=== PATIENT | female | born 1945 | race Caucasian/White ===

== ENCOUNTER 2021-10-13 14:26 | Outpatient (CLI) | payer MEDICARE, OTHER, SELFPAY ==
--- NOTE | 2021-10-13 14:42 | MM_ITS ---
WS: [id number] BILATERAL SCREENING 3D TOMOSYNTHESIS DIGITAL MAMMOGRAM WITH CAD HISTORY: SCREENING COMPARISON: 10/06/2018 and 09/20/2017 Bilateral CC and MLO views submitted. Computer aided detection analyzed. Breast composition: The breasts are heterogeneously dense, which may obscure small masses. No suspici ous masses, microcalcifications or architectural distortion. Benign coarse calcifications within each breast. MM/[place] [id number] IMPRESSION: BI-RADS: 2-Benign FOLLOW UP: 1 Year Follow-up
== END 2021-10-13 14:27 | disposition home or self-care (01) ==
LOC: RADSHAW 14:29
PROVIDERS: Family Provider Registered Nurse; PCP Family Medicine; Visit Provider Family Medicine
DX: Z12.31 Encounter for screening mammogram for malignant neoplasm of breast (principal)
CPT/HCPCS: 77063; 77067

== ENCOUNTER → 2022-09-08 13:23 | Outpatient (BNVA) | payer MEDICARE, OTHER, SELFPAY | PROVIDERS: Family Provider Registered Nurse; PCP Family Medicine; Visit Provider Orthopaedic Surgery | DX: M47.816 Spondylosis without myelopathy or radiculopathy, lumbar region (principal); M48.062 Spinal stenosis, lumbar region with neurogenic claudication | CPT/HCPCS: 72110; 99204 ==

== ENCOUNTER 2022-09-28 10:56 | Outpatient (CLI) | payer MEDICARE, OTHER, SELFPAY ==
--- NOTE | 2022-09-28 11:00 | MR_ITS ---
WS: [id number] MRI LUMBAR SPINE NONCONTRAST HISTORY: back pain, LEFT radiculopathy. COMPARISON: Radiograph 09/08/2022 TECHNIQUE: Sagittal and axial multisequence imaging is submitted. Increase in thoracic kyphosis. 50% compression fracture at T9. Focal kyphosis centered at T8-9 with i nvagination of T8 and T9. C5 retrolisthesis by 2 mm. No fractures or marrow edema. Mild degenerative disc space narrowing at L4-5 and L5-S1. Conus terminates normally at L1. L1-L2: Normal. L2-L3: Normal. L3-L4: Mild annular disc bulging. No disc protrusions. Moderate ligamentum flavum and facet arthritis . There is mild central and bilateral subarticular recess stenosis. No significant foraminal stenosis . L4-L5: Moderate annular disc bulging and mild osteophytic ridging. No disc protrusion. Moderate bilat eral foraminal stenosis, LEFT greater than RIGHT. Moderate central and bilateral subarticular recess stenosis. There is mild disc contacting the traversing L5 nerve roots bilaterally. L5-S1: Mild annular disc bulging and osteophytic ridging, greatest to the LEFT. Marked facet hypertro phy. Moderate to severe LEFT foraminal stenosis. There is mild central and RIGHT foraminal stenosis. There is a small disc protrusion extending caudad to the disc level with contact and encroachment upo n the thecal sac and S1 nerve roots, LEFT greater than RIGHT. Paraspinal soft tissues are negative. MR/MR lumbar spine wo con* [id number] IMPRESSION: 1. Moderate to severe LEFT foraminal stenosis at L5-S1. Stenosis due to combin ation of disc, osteophytosis and facet disease. 2. Mild central, RIGHT foraminal stenosis and bilateral subarticular recess st enosis also at L5-S1. Small central disc protrusion extends caudad to the disc level contacting the S1 nerve roots. 3. Mild central, bilateral subarticular recess stenosis at L3-4. 4. Moderate central, subarticular recess and foraminal stenosis at L4-5, LEFT greater than RIGHT. Disc contacts the traversing L5 nerve roots.
== END 2022-09-28 10:57 | disposition home or self-care (01) ==
LOC: RAD 10:59
PROVIDERS: PCP Family Medicine; Visit Provider Orthopaedic Surgery
DX: M48.07 Spinal stenosis, lumbosacral region (principal); M48.061 Spinal stenosis, lumbar region without neurogenic claudication
CPT/HCPCS: 72148

== ENCOUNTER → 2022-10-08 10:56 | Outpatient (BNVA) | payer MEDICARE, OTHER, SELFPAY | PROVIDERS: PCP Family Medicine; Visit Provider Orthopaedic Surgery | DX: M48.062 Spinal stenosis, lumbar region with neurogenic claudication (principal) | CPT/HCPCS: 99214 ==

== ENCOUNTER 2022-10-14 08:28 | Day surgery (SDC) | payer MEDICARE, OTHER, SELFPAY ==
[2022-10-09 11:39] VITALS: BMI 28.9
--- NOTE | 2022-10-09 12:11 | ECG_ITS ---
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
[2022-10-09 12:32] LABS: Basophils # 0.1 10^3/uL (0.0-0.1); Basophils % 0.8 %; Eosinophils # 0.1 10^3/uL (0.0-0.8); Eosinophils % 1.6 %; Hematocrit 39.6 % (37.0-47.0); Hemoglobin 13.3 g/dL (11.5-15.3); Lymphocytes # 1.6 10^3/uL (0.8-4.8); Lymphocytes % 24.3 %; Mean Corpuscular HGB Conc 33.6 g/dL (30.0-36.0); Mean Corpuscular Hemoglobin 32.3 pg (28.0-34.0); Mean Corpuscular Volume 96.1 fl (81-99); Mean Platelet Volume 8.3 fL (7.4-10.4); Monocytes # 0.8 10^3/uL (0.2-0.9); Monocytes % 12.2 %; Neutrophils # 3.91 10^3/uL (1.8-7.7); Neutrophils % 60.6 %; Nucleated Red Blood Cells % 0 %; Platelet Count 273 10^3/cmm (130-400); Red Blood Count 4.12 10^6/uL (4.1-5.3); Red Cell Distribution Width 11.6 % (12.1-15.1); White Blood Count 6.5 10^3/uL (4.0-10.0)
[2022-10-09 12:50] LABS: Alanine Aminotransferase 17 U/L (0-33); Albumin Level 4.2 g/dL (3.5-5.2); Alkaline Phosphatase 87 U/L (35-105); Anion Gap 14.6 (5-19); Aspartate Amino Transferase 24 U/L (0-32); Blood Urea Nitrogen 10 mg/dL (8-23); Calcium 8.9 mg/dL (8.5-10.5); Carbon Dioxide 27 mmol/L (22-29); Chloride 94 mmol/L (98-107); Globulin 2.9 g/dL (1.3-4.6); Glucose 117 mg/dL (65-115); Osmolality Calculated 272 mOsm/kg (285-295); Potassium 4.6 mmol/L (3.5-5.1); Sodium 131 mmol/L (136-145); Total Bilirubin 0.5 mg/dL (0.15-1.2); Total Protein 7.1 g/dL (6.6-8.7)
--- NOTE | 2022-10-09 14:49 | ANES.PREANE2 ---
Pre-Anesthetic Assessment Height/Weight: Height 1.52 m Weight 67.132 kg Operation Date: 10/14/22 10:05 Proposed Procedures p Lumbar Spine Decompression: L4/5 L5/S1 15546,95299 M48.062(Not Applicable) - Peyman Morrison DO Familial anesthetic complications: none Was Beta Soledad taken within 24 hours: Yes Was Clonidine taken within 24 hours: N/A Social Alcohol and Tobacco Exam alert, oriented x 3 and regular rate & rhythm Airway Submandibular: within normal limits Cervical ROM: within normal limits Mallampati: Class II Dentition: full Pulmonary Chronic Obstructive Pulmonary Disease CV/HEM Hypertension Metabolic Morbid Obesity [facility] [place] Lower Back Pain and Osteoarthritis/DJD Neuropsych Anxiety and Depression Anesthetic Plan ASA status: 3 Anesthesia: General Medications/Allergies Home Medications Medication Instructions Recorded Confirmed Last Taken Type alprazolam 0.5 mg tablet (Xanax) 0.5 mg PO DAILY 09/08/22 10/09/22 Unknown History carvedilol 6.25 mg tablet 6.25 mg PO BID 09/08/22 10/09/22 Unknown History hydrocodone 5 mg-acetaminophen 325 1 tab PO Q8H PRN Pain 09/08/22 10/09/22 Unknown History mg tablet losartan 100 mg tablet 100 mg PO DAILY 09/08/22 10/09/22 Unknown History methocarbamol 750 mg tablet 750 mg PO TID 09/08/22 10/09/22 Unknown History montelukast 10 mg tablet 10 mg PO DAILY 09/08/22 10/09/22 Unknown History pregabalin 50 mg capsule (Lyrica) 50 mg PO TID 09/08/22 10/09/22 Unknown History Allergies Allergy/AdvReac Type Severity Reaction Status Date / Time vigabatrin [From Sabril] Allergy Severe ALGY-Anaphy Verified 10/08/22 11:03 laxis latex Allergy ALGY-Hives Verified 10/09/22 11:34 Penicillins Allergy ALGY-Rash Verified 10/08/22 11:03 Sulfa (Sulfonamide Allergy ALGY-Anaphy Verified 10/09/22 11:34 Antibiotics) laxis Data Anesthesia 10/09/22 12:22 10/09/22 12:22 Short CBC 10/09/22 Range/Units 12:22 WBC 6.5 (4.0-10.0) 10^3/uL Hgb 13.3 (11.5-15.3) g/dL Hct 39.6 (37.0-47.0) % MCV 96.1 (81-99) fl Plt Count 273 (130-400) 10^3/cmm Neut % (Auto) 60.6 % Neut # (Auto) 3.91 (1.8-7.7) 10^3/uL BMP 10/09/22 12:22 Sodium 131 L Potassium 4.6 Chloride 94 L Carbon Dioxide 27 BUN 10 Creatinine 0.7 Glucose 117 H Calcium 8.9 Liver Function 10/09/22 Range/Units 12:22 Total Bilirubin 0.5 (0.15-1.2) mg/dL AST 24 (0-32) U/L ALT 17 (0-33) U/L Alkaline Phosphatase 87 (35-105) U/L Albumin 4.2 (3.5-5.2) g/dL Cardiac Studies: No Data to Display
[2022-10-14] VITALS (13 sets, daily range): BP systolic 119–168; BP diastolic 58–107; PULSE 80–89; RESP 12–18; TEMP 36.1–36.9; O2SAT 91–97
--- NOTE | 2022-10-14 09:10 | W.PM.OPSUD ---
Surgery/Procedure H&P Update DATE OF PROCEDURE: October 14, 2022 DATE H&P PERFORMED: 10/08/22 H&P UPDATE INFORMATION: I have reviewed H&P completed within last 30 days, I have examined patient prior to procedure and No changes to prior documentation PREOP DIAGNOSIS: Lumbar stenosis with neurogenic claudication PLANNED PROCEDURE: Operation Date: 10/14/22 10:10 Proposed Procedures p Lumbar Spine Decompression: L4/5 L5/S1 [id number],19473 M48.062(Not Applicable) - Peyman Morrison DO
[2022-10-14] MEDS: sodium chloride 0.9% 1,000 ML 30 ML IV (09:12)
--- NOTE | 2022-10-14 09:26 | P.ANESUD_ITS ---
Pre-Anesthetic Update Pre-Anesthetic Assessment: Date of Surgery/Procedure: 10/14/22 Preop Charla gnosis: Lumbar stenosis with neurogenic claudication Proposed Procedure: Operation Date: 10/14/22 10:10 Proposed Procedures p Lumbar Spine Decompression: L4/5 L5/S1 [id number],50782 M48.062(Not Applicable) - Peyman Morrison, DO Any changes to Pre-Anesthetic Assessment?: No Last Intake: Intake Last Liquid Date 10/14/22 Last Liquid Time 06:30 Last Solid Date 10/13/22 Last Solid Time 20:00 Vitals: Temperature 98.3 F 10/14/22 08:52 Temperature Source Temporal Artery S can 10/14/22 08:52 Pulse Rate 80 10/14/22 08:52 Respiratory Rate 18 10/14/22 08:52 Blood Pressure 168/107 10/14/22 08:52 Blood Pressure Sofía n 127 10/14/22 08:52 Pulse Oximetry 97 10/14/22 08:52 Oxygen Delivery Me thod 10/14/22 08:52 Exam: Pre-Anes Outpt Exam: alert, oriented x 3, clear to auscultation bilaterally and regular rate & rhythm Cardiac Studies: No Data to Display
[2022-10-14] MEDS: clindamycin 900 MG/50 ML PREMIX 100 MG IV (10:12)
[2022-10-14] MEDS: lidocaine-epi 1% 20 mL INJ INJECTION (10:45)
--- NOTE | 2022-10-14 11:34 | XR_ITS ---
WS: [id number] EXAMINATION: XR lumbar spine 1V [id number] L-SPINE : 1 views REASON FOR EXAM: C-arm fluoroscopy COMPARISON: None available. ORDER DATE: 10/14/2022 11:34 AM FINDINGS: Surgical positioned at the L5 level XR/XR lumbar spine 1V [id number] IMPRESSION: As above total fluoroscopy time 16.9 seconds
--- NOTE | 2022-10-14 11:39 | PC.NURSE ---
Pt arrived to PACU, awake, denies any pain or nausea. Dressing to lower back C/D/I, able to move all extremities.
--- NOTE | 2022-10-14 11:45 | PM.OP ---
Operative Report Date of procedure: October 14, 2022 Pre-op diagnosis: Preop Diagnosis Lumbar stenosis with neurogenic claudication Post-op diagnosis: same Procedure done: 1. L4/5 laminectomy with partial facetectomies 2. L5/S1 laminectomies with partial factectomies Surgeon: Peyman Morrison Lead Atg Developer: Juan Manuel Mccullough Lead Atg Developer: The certified surgical assistant, Juan Manuel Mccullough, PAC was needed for his expertise under the microscope. He was important and necessary throughout the procedure to complete in a safe and timely manner. He assisted with patient positioning prepping and draping tissue retraction suctioning of the operative field protection of the dural sac and tissue closure Estimated blood loss (mL): 20 Procedure: 1. L4/5 laminectomy with partial facetectomies 2. L5/S1 laminectomies with partial factectomies Patient is brought to the operative suite. After undergoing anesthesia they are placed in the prone position. All areas of impingement are well padded. Patient is then prepped and draped in the normal sterile fashion. A skin incision is made over the L4/5 level. This is confirmed under c-arm guidance. A series of dilators are passed and the tubular retractor is docked on the L4 lamina. A bovie is used to clear the soft tissue off the lamina and the L 4/5 facet joint. A high speed mehul is then used to perform the laminectomy and take down the medial aspect of the L 4/5 facet joint. A kerrison rongeure was then used to take down the remaining lamina and smooth the edged of the laminectomy up to the point where the ligamentum flavum attaches. Attention was then brought to the medial aspect of the facet joint. The remaining medial aspect of the superior and inferior aspect of the facet joint were taken down with the kerrison from the pedicle of L4 to L 5. The facet joint had significant hypertrophy. Attention was then brought to the Ligamentum Flavum. The ligament was taken down from the lamina of L4 to L5 and out medially to the remaining facet joint. The ligament was thick. The dura was then exposed. The dura was in good repair. The L4 nerve was then traced with a curette out the L4/5 foramen and found to be adequately decompressed. The L5 nerve was traced with a curette around the L5 pedicle. The lateral recess was opened with a kerrison helping to further decompress the L5 nerve. The tubular retractor was then tilted to the contralateral side. The bovie was used to take down the soft tissue on the spinous process. The high speed mehul was used to take down the spinous process and then the contralateral lamina of L4. The kerrison rongeur was used to take down the remaining lamina to the point where the ligamentum flavum attached and the ligamentum flavum was taken down from L4 to L5. The kerrison rongeur was then used to reach across and take down the medial aspect of the contralateral L4/5 facet joint.The currete was used to trace the contralateral L4 nerve out the L4/5 foramen to make sure it was decompressed adequatesly and the L5 was traced around the L5 pedicle. The lateral recess was opened further with the kerrison to ensure the L5 is adequately decompressed. Wound is then irrigated copiously with saline and surgiflo is used to stop any bleeding. The tubular retractor is removed and the A skin incision is made over the L5/S1 level. This is confirmed under c-arm guidance. A series of dilators are passed and the tubular retractor is docked on the L5 lamina. A bovie is used to clear the soft tissue off the lamina and the L 5/S1 facet joint. A high speed mehul is then used to perform the laminectomy and take down the medial aspect of the L 5/S1 facet joint. A kerrison rongeure was then used to take down the remaining lamina and smooth the edged of the laminectomy up to the point where the ligamentum flavum attaches. Attention was then brought to the medial aspect of the facet joint. The remaining medial aspect of the superior and inferior aspect of the facet joint were taken down with the kerrison from the pedicle of L5 to S1. The facet joint had significant hypertrophy. Attention was then brought to the Ligamentum Flavum. The ligament was taken down from the lamina of L5 to S1 and out medially to the remaining facet joint. The ligament was thick. The dura was then exposed. The dura was in good repair. The L5 nerve was then traced with a curette out the L5/S1 foramen and found to be adequately decompressed. The S1 nerve was traced with a curette around the S1 pedicle. The lateral recess was opened with a kerrison helping to further decompress the S1 nerve. The tubular retractor was then tilted to the contralateral side. The bovie was used to take down the soft tissue on the spinous process. The high speed mehul was used to take down the spinous process and then the contralateral lamina of L5. The kerrison rongeur was used to take down the remaining lamina to the point where the ligamentum flavum attached and the ligamentum flavum was taken down from L5 to S1. The kerrison rongeur was then used to reach across and take down the medial aspect of the contralateral L5/S1 facet joint.The currete was used to trace the contralateral L5 nerve out the L5/S1 foramen to make sure it was decompressed adequatesly and the S1 was traced around the S1 pedicle. The lateral recess was opened further with the kerrison to ensure the S1 is adequately decompressed. Wound is then irrigated copiously with saline and surgiflo is used to stop any bleeding. The tubular retractor is removed and the wound is closed with vicryl and monocryl suture. Glue is then used to protect the wound. A sterile dressing is then placed. Patient was then placed in the supine position and transferred to the PACU in stable condition.
[2022-10-14] MEDS: fentaNYL 50 mcg/mL INJ 2mL IVP (11:50)
[2022-10-14] MEDS: HYDROcodone-acetaminophen 5-325 mg Tablet 1 TAB PO (12:49)
--- NOTE | 2022-10-14 14:54 | ANE.PACU2 ---
Inpatient post-anesthesia follow up: Airway intact: Yes Vital signs: Temperature 97.2 F Pulse Rate 83 Respiratory Rate 18 Blood Pressure 163/81 Pulse Oximetry 95 Oxygen Delivery Me thod Room Air Oxygen Flow Rate Fraction of Inspir ed Oxygen Hydration adequate: Yes Nausea and vomiting: No Pain level: 1 Mental status: Baseline
== END 2022-10-14 13:20 | disposition home or self-care (01) ==
PROVIDERS: Anesthesiology; PCP Family Medicine; Visit Provider Orthopaedic Surgery
PROC: (CPT 63005; principal; 2022-10-14 10:00)
DX: M48.062 Spinal stenosis, lumbar region with neurogenic claudication (principal); J44.9 Chronic obstructive pulmonary disease, unspecified; I10 Essential (primary) hypertension; E66.01 Morbid (severe) obesity due to excess calories; Z68.28 Body mass index [BMI] 28.0-28.9, adult
CPT/HCPCS: 63047; 63048; 36415; 72020; 76000; 80053; 85025; 93005; J1100; J1170; J2405; J2704; J2710; J3010; J3490; J7030

== ENCOUNTER → 2022-10-29 08:51 | Outpatient (BNVA) | payer MEDICARE, OTHER, SELFPAY | PROVIDERS: PCP Family Medicine; Visit Provider Orthopaedic Surgery | DX: Z47.89 Encounter for other orthopedic aftercare (principal) | CPT/HCPCS: 99024 ==

== ENCOUNTER → 2022-11-26 08:40 | Outpatient (BNVA) | payer MEDICARE, OTHER, SELFPAY | PROVIDERS: PCP Family Medicine; Visit Provider Orthopaedic Surgery | DX: Z47.89 Encounter for other orthopedic aftercare (principal) | CPT/HCPCS: 99024 ==

== ENCOUNTER → 2023-01-07 10:16 | Outpatient (BNVA) | payer MEDICARE, OTHER, SELFPAY | PROVIDERS: PCP Family Medicine; Visit Provider Orthopaedic Surgery | DX: Z48.89 Encounter for other specified surgical aftercare (principal) | CPT/HCPCS: 99024 ==

== ENCOUNTER 2023-01-18 13:46 | Outpatient (RCR) | payer MEDICARE, OTHER, SELFPAY | END 2023-01-22 23:59 | disposition home or self-care (01) | LOC: SPT 13:46 | PROVIDERS: PCP Family Medicine; Visit Provider Orthopaedic Surgery | DX: Z47.89 Encounter for other orthopedic aftercare (principal) | CPT/HCPCS: 97110; 97161 ==

== ENCOUNTER 2023-01-23 06:00 | Outpatient (RCR) | payer MEDICARE, OTHER, SELFPAY | END 2023-02-22 23:59 | disposition home or self-care (01) | LOC: SPT 06:00 | PROVIDERS: PCP Family Medicine; Visit Provider Orthopaedic Surgery | DX: Z47.89 Encounter for other orthopedic aftercare (principal) | CPT/HCPCS: 97110 ==

== ENCOUNTER → 2023-03-02 09:06 | Outpatient (BNVA) | payer MEDICARE, OTHER, SELFPAY | PROVIDERS: PCP Family Medicine; Visit Provider Physician Assistant | DX: M51.36 Other intervertebral disc degeneration, lumbar region (principal); Z98.890 Other specified postprocedural states | CPT/HCPCS: 99213 ==

== ENCOUNTER → 2023-04-19 10:22 | Outpatient (BNVA) | payer MEDICARE, OTHER, SELFPAY | PROVIDERS: PCP Family Medicine; Visit Provider Specialist | DX: M19.012 Primary osteoarthritis, left shoulder | CPT/HCPCS: 20610; 73030; 99204; J1100; J2795; J3301 ==

== ENCOUNTER → 2023-04-22 13:53 | Outpatient (BNVA) | payer MEDICARE, OTHER, SELFPAY | PROVIDERS: PCP Family Medicine; Visit Provider Orthopaedic Surgery | DX: M48.062 Spinal stenosis, lumbar region with neurogenic claudication (principal); M51.36 Other intervertebral disc degeneration, lumbar region; M81.0 Age-related osteoporosis without current pathological fracture | CPT/HCPCS: 72100; 99214 ==

== ENCOUNTER 2023-04-29 11:50 | Outpatient (CLI) | payer MEDICARE, OTHER, SELFPAY ==
--- NOTE | 2023-04-29 12:15 | MR_ITS ---
WS: [id number] MRI LUMBAR SPINE NONCONTRAST HISTORY: lumbar pain COMPARISON: 09/28/2022 TECHNIQUE: Sagittal and axial multisequence imaging is submitted. Moderate focal kyphosis centered at T8-9. Severe disc space narrowing T8-9 with T9 compression fractu re. Invagination of the T8 vertebral body into T9. Mild increase in the lumbar lordosis. Moderate disc base narrowing and desiccation at L4-5 and L5-S1. Conus terminates normally at L1. L1-L2: Normal. L2-L3: Normal. L3-L4: Mild annular disc bulging encroaching upon the ventral thecal sac and subarticular recesses. M ild ligamentum flavum hypertrophy. Very minimal central and subarticular recess encroachment. L4-L5: Mild diffuse annular disc bulging and osteophytic ridging. Posterior laminectomy defect on the RIGHT is new since the prior examination. There is ligamentum flavum debridement. Less central steno sis than on the prior study. There is very mild disc encroachment upon the ventral thecal sac with mi ld foraminal stenosis. L5-S1: Osteophytic ridging and annular disc bulging. RIGHT laminectomy defect. There is mild disc con tact on the ventral thecal sac. Moderate bilateral foraminal stenosis. Very mild central stenosis. Le ss disc encroachment upon the S1 nerve roots. IMPRESSION: 1. Since the prior examination of 09/28/2022 RIGHT laminectomy defects at L4-5 and L5-S1 with improved central stenosis. 2. Less disc contact on the S1 nerve roots at L5-S1. Moderate bilateral foraminal stenosis persists. 3. Very mild central subarticular recess stenosis at L3-4. 4. Mild central and foraminal stenosis at L4-5.
== END 2023-04-29 11:51 | disposition home or self-care (01) ==
LOC: RAD 11:52
PROVIDERS: PCP Family Medicine; Visit Provider Orthopaedic Surgery
DX: M48.062 Spinal stenosis, lumbar region with neurogenic claudication (principal); M51.36 Other intervertebral disc degeneration, lumbar region; Z98.890 Other specified postprocedural states
CPT/HCPCS: 72148

== ENCOUNTER → 2023-05-11 14:58 | Outpatient (BNVA) | payer MEDICARE, OTHER, SELFPAY | PROVIDERS: PCP Family Medicine; Visit Provider Physician Assistant | DX: M48.062 Spinal stenosis, lumbar region with neurogenic claudication (principal) | CPT/HCPCS: 99214 ==

== ENCOUNTER → 2023-08-02 09:12 | Outpatient (BNVA) | payer MEDICARE, OTHER, SELFPAY | PROVIDERS: PCP Family Medicine; Referring Provider Orthopaedic Surgery; Visit Provider Anesthesiology Pain Medicine | DX: M48.062 Spinal stenosis, lumbar region with neurogenic claudication (principal); M32.9 Systemic lupus erythematosus, unspecified; M51.36 Other intervertebral disc degeneration, lumbar region | CPT/HCPCS: 99204 ==

== ENCOUNTER → 2023-08-18 13:48 | Outpatient (BNVA) | payer MEDICARE, OTHER, SELFPAY | PROVIDERS: PCP Family Medicine; Visit Provider Anesthesiology Pain Medicine | DX: M54.16 Radiculopathy, lumbar region (principal); M48.062 Spinal stenosis, lumbar region with neurogenic claudication | CPT/HCPCS: 64483; 64484; J1100; J3490 ==

== ENCOUNTER → 2023-08-30 13:18 | Outpatient (BNVA) | payer MEDICARE, OTHER, SELFPAY | PROVIDERS: PCP Family Medicine; Visit Provider Anesthesiology Pain Medicine | DX: M54.16 Radiculopathy, lumbar region (principal); M48.062 Spinal stenosis, lumbar region with neurogenic claudication | CPT/HCPCS: 64483; 64484; J1100; J3490 ==

== ENCOUNTER → 2023-09-02 13:38 | Outpatient (BNVA) | payer MEDICARE, OTHER, SELFPAY | PROVIDERS: PCP Family Medicine; Visit Provider Otolaryngology | DX: M26.621 Arthralgia of right temporomandibular joint (principal); H92.01 Otalgia, right ear; H93.12 Tinnitus, left ear; Z72.89 Other problems related to lifestyle | CPT/HCPCS: 99214; 99215 ==

== ENCOUNTER → 2023-09-10 09:46 | Outpatient (BNVA) | payer MEDICARE, OTHER, SELFPAY | PROVIDERS: PCP Family Medicine; Visit Provider Specialist | DX: M19.012 Primary osteoarthritis, left shoulder | CPT/HCPCS: 20610; J1100; J2795; J3301 ==

== ENCOUNTER → 2023-09-13 08:41 | Outpatient (BNVA) | payer MEDICARE, OTHER, SELFPAY | PROVIDERS: PCP Family Medicine; Visit Provider Anesthesiology Pain Medicine | DX: M48.062 Spinal stenosis, lumbar region with neurogenic claudication (principal); M32.9 Systemic lupus erythematosus, unspecified; M51.36 Other intervertebral disc degeneration, lumbar region | CPT/HCPCS: 99214 ==

== ENCOUNTER 2023-09-29 14:07 | Outpatient (CLI) | payer MEDICARE, OTHER, SELFPAY ==
--- NOTE | 2023-09-29 14:12 | MM_ITS ---
WS: [id number] BILATERAL 3D TOMOSYNTHESIS DIGITAL SCREENING MAMMOGRAPHY WITH CAD CLINICAL INFORMATION: SCREENING HISTORY: Screening mammogram. No current complaints. COMPARISON: 2021 TECHNIQUE: Bilateral CC and MLO views. FINDINGS: Scattered fibroglandular densities bilaterally. No suspicious focal mass, asymmetry, calcifications, or architectural distortion. No evidence of malignancy. Punctate and lucent centered calcifications. Dystrophic calcifications. IMPRESSION: MM/[place] [id number] BI-RADS: 2-Benign FOLLOW UP: 1 Year Follow-up Recommend return to annual screening mammography.
== END 2023-09-29 14:08 | disposition home or self-care (01) ==
LOC: RAD 14:08
PROVIDERS: PCP Family Medicine; Visit Provider Family Medicine
DX: Z12.31 Encounter for screening mammogram for malignant neoplasm of breast (principal)
CPT/HCPCS: 77063; 77067

== ENCOUNTER → 2023-11-11 08:45 | Outpatient (BNVA) | payer MEDICARE, SELFPAY | PROVIDERS: PCP Family Medicine; Visit Provider Anesthesiology Pain Medicine | DX: M48.062 Spinal stenosis, lumbar region with neurogenic claudication (principal); M32.9 Systemic lupus erythematosus, unspecified; M51.36 Other intervertebral disc degeneration, lumbar region | CPT/HCPCS: 99214 ==

== ENCOUNTER → 2023-11-25 14:18 | Outpatient (BNVA) | payer MEDICARE, OTHER, SELFPAY | PROVIDERS: PCP Family Medicine; Visit Provider Anesthesiology Pain Medicine | DX: M47.816 Spondylosis without myelopathy or radiculopathy, lumbar region (principal); M48.062 Spinal stenosis, lumbar region with neurogenic claudication | CPT/HCPCS: 64493; 64494; 64495 ==

== ENCOUNTER → 2023-12-10 10:31 | Outpatient (BNVA) | payer MEDICARE, OTHER, SELFPAY | PROVIDERS: PCP Family Medicine; Visit Provider Specialist | DX: M19.012 Primary osteoarthritis, left shoulder (principal) | CPT/HCPCS: 20610; J1100; J2795; J3301 ==

== ENCOUNTER → 2023-12-22 09:35 | Outpatient (BNVA) | payer MEDICARE, OTHER, SELFPAY | PROVIDERS: PCP Family Medicine; Visit Provider Anesthesiology Pain Medicine | DX: M48.062 Spinal stenosis, lumbar region with neurogenic claudication (principal); M32.9 Systemic lupus erythematosus, unspecified; M51.36 Other intervertebral disc degeneration, lumbar region | CPT/HCPCS: 99214 ==

== ENCOUNTER 2024-01-02 05:18 | Emergency (ER) | payer MEDICARE, OTHER, SELFPAY ==
[2024-01-02] VITALS (13 sets, daily range): BP systolic 93–144; BP diastolic 70–80; PULSE 86–100; RESP 16–20; TEMP 36.5; O2SAT 85–99; BMI 37.0
--- NOTE | 2024-01-02 05:23 | ED_ITS ---
HPI - Fall 2 General: Chief Complaint: Fall Stated Complaint: FALL Time Seen by Provider: 01/02/24 05:19 Source: EMS Mode of arrival: EMS Limitations: no limitations History of Present Illness: 78-year-old female is here from home aft er a fall. States she tripped and fell last night at 10:00 states she did hit her right side on a chair she has bruising along her right flank and right abdomen she has pain there she states that she laid in the floor till 4 and called EMS states she would have a hard time getting up or walking due to the pain she denies any hip pain denies hitting her head denies any chest pain. Associated symptoms-after fall: Reports abdominal pain; Denies chest pain, headache(s) or neck pain Review of Systems 2 Const: Denies: fever(s), chills, body aches or change in appetite ENMT: Denies: throat pain or dental pain Card: Denies: chest pain Resp: Denies: dyspnea GI: Reports: abdominal pain; Denies: nausea, vomiting or diarrhea : Denies: dysuria Musc: Reports: back pain; Denies: neck pain Skin/Breast: Denies: rash Neuro: Denies: headache(s) PFSH ED 2 PFSH: Medical History COPD (chronic obstructive pulmonary disease) Hypertension Lupus Spinal stenosis Surgical History Hx of appendectomy Family History Sister Lupus Social History Smoking and tobacco/nicotine status: former use of tobacco/nicotine Second hand smoke exposure: No Alcohol intake: current Substance/Drug Use: never Caregiver/support person: No Lives independently: Yes Household members: spouse Housing: House Marital status: Number of children: 2 Number of grandchildren: 2 service: No Current occupational status: retired Current occupational exposures/hazards: No Pets and animals: Yes Do you think of yourself as: Straight/Heterosexual Current gender identity: Female Special edy needs: No Physical Exam 2 Const: COMMON NORMALS: no acute distress, patient oriented x3 and healthy appearing HENMT: COMMON NORMALS: normocephalic and atraumatic HEAD & SCALP: n ormocephalic and atraumatic Neck/C-Spine: COMMON NORMALS: full ROM and supple Chest: COMMONS NORMALS: normal inspection of the chest and normal palpation of entire chest wall Resp: COMMON NORMALS: normal respiratory effort, No retractions, No use of accessory muscles and clear to auscultation bilaterally AUSCULTATION: clear to auscultation bilaterally Cardio: COMMON NORMALS: regular rate, regular rhythm and No murmurs present (Cardio) RATE: regular rate RHYTHM: regular rhythm GI: COMMON NORMALS: Normal to inspection, nondistended, normoactive bowel sounds present, Soft to palpation and no masses PALPATION: Yes Soft to palpation OTHER: Tenderness noted to right side of the abdomen and right flank Back/Pelvis: OTHER: Bruising along right lower back no midline tenderness Extremity: COMMON NORMALS: normal to inspection and full ROM Neuro: COMMON NORMALS: patient oriented x3, moves all extremities and no focal motor deficits Psych: COMMON NORMALS: mental status grossly normal, Normal thought process present and cooperative THOUGHT PROCESS: Normal thought process present Skin: COMMON NORMALS: no rashes or lesions noted and no wounds GENERAL SKIN EXAM: no rashes or lesions noted Course 2 Vital Signs: Vital signs: Vital Signs Temperature 97.7 F 01/02/24 05:27 Pulse Rate 90 01/02/24 08:45 Respiratory Rate 16 01/02/24 07:48 Blood Pressure 119/75 01/02/24 08:45 Pulse Oximetry 99 01/02/24 08:45 Oxygen Delivery Me thod Nasal Cannula 01/02/24 06:47 Oxygen Flow Rate 1 01/02/24 06:47 MDM - Fall Medical Decision Making Patient presents here patient presents here with flank pain from a fall she does have bruising patient's pending CT scan is turned over to Dr. Sanford pending the CT scan. Medical Records I reviewed the patient's medical records. Lab Data I reviewed the patient's lab results. 01/02/24 04:46 01/02/24 04:46 Radiology Impressions Abdomen/Pelvis CT 01/02/24 05:24 IMPRESSION: No acute findings. Laboratory Results WBC 11.18 10^3/uL (3.29-11.43) 01/02/24 04:46 RBC 3.38 10^6/uL (3.85-5.65) L 01/02/24 04:46 Hgb 11.70 g/dL (11.27-16.99) 01/02/24 04:46 Hct 33.1 % (36-47) L 01/02/24 04:46 MCV 97.9 fl (85-98) 01/02/24 04:46 MCH 34.6 pg (27-33) H 01/02/24 04:46 MCHC 35.3 g/dL (30-55) 01/02/24 04:46 RDW 12.1 % (12.1-15.1) 01/02/24 04:46 Plt Count 315 10^3/cmm (157-399) 01/02/24 04:46 MPV 8.1 fL (7.4-10.4) 01/02/24 04:46 Neut % (Auto) 77.8 % 01/02/24 04:46 Lymph % (Auto) 13.6 % 01/02/24 04:46 Stephenson % (Auto) 7.2 % 01/02/24 04:46 Eos % (Auto) 0.4 % 01/02/24 04:46 Baso % (Auto) 0.3 % 01/02/24 04:46 Neut # (Auto) 8.70 10^3/uL (1.8-7.7) H 01/02/24 04:46 Lymph # (Auto) 1.5 10^3/uL (0.8-4.8) 01/02/24 04:46 Stephenson # (Auto) 0.8 10^3/uL (0.2-0.9) 01/02/24 04:46 Eos # (Auto) 0.0 10^3/uL (0.0-0.8) 01/02/24 04:46 Baso # (Auto) 0.0 10^3/uL (0.0-0.1) 01/02/24 04:46 Nucleated RBC % (auto) 0 % 01/02/24 04:46 Nucleated RBCs # 0.0 /100WBC 01/02/24 04:46 Sodium 125 mmol/L (136-145) L 01/02/24 04:46 Potassium 3.5 mmol/L (3.5-5.1) 01/02/24 04:46 Chloride 86 mmol/L (98-107) L 01/02/24 04:46 Carbon Dioxide 24 mmol/L (22-29) 01/02/24 04:46 Anion Gap 18.5 (5-19) 01/02/24 04:46 BUN 12 mg/dL (8-23) 01/02/24 04:46 Creatinine 0.7 mg/dL (0.5-0.9) 01/02/24 04:46 GFR Calculation Not Reportable 01/02/24 04:46 Glucose 95 mg/dL (65-115) 01/02/24 04:46 Calculated Osmolality 260 mOsm/kg (285-295) L 01/02/24 04:46 Calcium 8.8 mg/dL (8.5-10.5) 01/02/24 04:46 Total Bilirubin 0.3 mg/dL (0.15-1.2) 01/02/24 04:46 AST 21 U/L (0-32) 01/02/24 04:46 ALT 14 U/L (0-33) 01/02/24 04:46 Alkaline Phosphatase 104 U/L (35-105) 01/02/24 04:46 Total Protein 7.3 g/dL (6.6-8.7) 01/02/24 04:46 Albumin 4.1 g/dL (3.5-5.2) 01/02/24 04:46 Globulin 3.2 g/dL (1.3-4.6) 01/02/24 04:46 All radiology interpretation(s) finalized by discharge Discharge Plan Discharge Patient Disposition: Home Clinical Impression: Acute exacerbation of chronic low back pain, Fall, Acute flank pain Condition: Stable Prescriptions: No Action alprazolam [Xanax] 0.5 mg tablet 0.5 mg PO DAILY montelukast 10 mg tablet 10 mg PO DAILY methocarbamol 750 mg tablet 750 mg PO TID pregabalin [Lyrica] 50 mg capsule 50 mg PO TID carvedilol 6.25 mg tablet 6.25 mg PO BID Rx Instructions: must administer with a meal/food doxycycline hyclate 100 mg tablet 100 mg PO BID 7 Days Qty: 14 0RF losartan 100 mg tablet See Rx Instructions .ROUTE .COMPLEX Qty: 90 5RF Dose Instruction: TAKE 1 TABLET BY MOUTH ONCE DAILY FOR HIGH BLOOD PRESSURE Rx Instructions: TAKE 1 TABLET BY MOUTH ONCE DAILY FOR HIGH BLOOD PRESSURE Prevacid 30 mg Capsule,Delayed Release(Dr/Ec) 30 mg PO DAILY hydrocodone-acetaminophen 5-325 mg tablet 1 - 2 tab PO .Q4-6H Qty: 40 0RF Discharge Orders: Discharge ED (Routine); Ordered 01/02/24 Ordered By: Ericka Carvajal Referrals: Dagmar Santos DO [Primary Care Provider] - Discharge Activity: Limit activity as instructed Patient Instructions: Opioid Safety, Pain Management Coding Level of Care Code ED Frozen Pie Maker for Deejay Jones
--- NOTE | 2024-01-02 05:24 | CTR_ITS ---
PROCEDURE INFORMATION: Exam: CT Abdomen And Pelvis With Contrast Exam date and time: 01/02/2024 6:10 AM Age: 78 years old Clinical indication: Pain and injury or trauma; Blunt; Abdominal wall; Abdominal pain; Right; Prior surgery; Surgery date: 6+ months; Surgery type: Lumbar. Appy; Patient HX: C/O RT flank/abd wall pain after falling against a chair and then onto the floor. ; Additional info: R abd/r flank pain fall TECHNIQUE: Imaging protocol: Computed tomography of the abdomen and pelvis with contrast. Radiation optimization: All CT scans at this facility use at least one of these dose optimization techniques: automated exposure control; mA and/or kV adjustment per patient size (includes targeted exams where dose is matched to clinical indication); or iterative reconstruction. Contrast material: OMNI 350; Contrast volume: 100 ml; Contrast route: INTRAVENOUS (IV); COMPARISON: MR lumbar spine wo con* [id number] 04/29/2023 12:24 PM RADIATION DOSE METRICS: Total DLP (mGy-cm): 449.61 FINDINGS: Liver: Normal. No mass. Gallbladder and bile ducts: Normal. No calcified stones. No ductal dilation. Pancreas: Normal. No ductal dilation. Spleen: Normal. No splenomegaly. Adrenal glands: Normal. No mass. Kidneys and ureters: Normal. No hydronephrosis. Stomach and bowel: Unremarkable. No obstruction. No mucosal thickening. Appendix: No evidence of appendicitis. Intraperitoneal space: Unremarkable. No free air. No significant fluid collection. Vasculature: Unremarkable. No abdominal aortic aneurysm. Lymph nodes: Unremarkable. No enlarged lymph nodes. Urinary bladder: Unremarkable as visualized. Reproductive: Unremarkable as visualized. Bones/joints: Unremarkable. No acute fracture. Soft tissues: Unremarkable. CT/CT abdomen pelvis w con* [id number] IMPRESSION: No acute findings.
[2024-01-02 05:33] LABS: Basophils % 0.3 %; Eosinophils % 0.4 %; Hematocrit 33.1 % (36-47); Lymphocytes # 1.5 10^3/uL (0.8-4.8); Lymphocytes % 13.6 %; Mean Corpuscular HGB Conc 35.3 g/dL (30-55); Mean Corpuscular Hemoglobin 34.6 pg (27-33); Mean Corpuscular Volume 97.9 fl (85-98); Mean Platelet Volume 8.1 fL (7.4-10.4); Monocytes # 0.8 10^3/uL (0.2-0.9); Monocytes % 7.2 %; Neutrophils % 77.8 %; Nucleated Red Blood Cells % 0 %; Platelet Count 315 10^3/cmm (157-399); Red Blood Count 3.38 10^6/uL (3.85-5.65); Red Cell Distribution Width 12.1 % (12.1-15.1); White Blood Count 11.18 10^3/uL (3.29-11.43)
[2024-01-02] MEDS: ondansetron 2 mg/ML SDV 2 mL 4 MG IVP (05:45)
[2024-01-02] MEDS: sodium chloride 0.9% 1,000 ML 999 ML IV (05:45)
[2024-01-02] MEDS: morphine 4 mg/mL SDV 1 mL IVP (05:47)
[2024-01-02 05:49] LABS: Alanine Aminotransferase 14 U/L (0-33); Albumin Level 4.1 g/dL (3.5-5.2); Alkaline Phosphatase 104 U/L (35-105); Anion Gap 18.5 (5-19); Aspartate Amino Transferase 21 U/L (0-32); Blood Urea Nitrogen 12 mg/dL (8-23); Calcium 8.8 mg/dL (8.5-10.5); Carbon Dioxide 24 mmol/L (22-29); Chloride 86 mmol/L (98-107); Creatinine Clr Calc Pharmacy 57.4298; Globulin 3.2 g/dL (1.3-4.6); Glucose 95 mg/dL (65-115); Osmolality Calculated 260 mOsm/kg (285-295); Potassium 3.5 mmol/L (3.5-5.1); Sodium 125 mmol/L (136-145); Total Bilirubin 0.3 mg/dL (0.15-1.2); Total Protein 7.3 g/dL (6.6-8.7)
[2024-01-02] MEDS: iohexol 350 mg/mL 500 mL Btl (per mL) IV (06:11)
[2024-01-02] MEDS: oxyCODONE-APAP 5-325 mg Tablet 1 TAB PO (07:48)
== END 2024-01-02 09:18 | disposition home or self-care (01) ==
PROVIDERS: Emergency Medicine; Emergency Provider Emergency Medicine; PCP Family Medicine
DX: G89.29 Other chronic pain (principal); M54.50 Low back pain, unspecified; R10.9 Unspecified abdominal pain; J44.9 Chronic obstructive pulmonary disease, unspecified; I10 Essential (primary) hypertension; Z87.891 Personal history of nicotine dependence; W01.0XXA Fall on same level from slipping, tripping and stumbling without subsequent striking against object, initial encounter
CPT/HCPCS: 74177; 80053; 85025; 96374; 96375; 99285; J2270; J2405; J7030; Q9967

== ENCOUNTER → 2024-03-17 10:35 | Outpatient (BNVA) | payer MEDICARE, OTHER, SELFPAY | PROVIDERS: PCP Family Medicine; Visit Provider Specialist | DX: M19.012 Primary osteoarthritis, left shoulder (principal) | CPT/HCPCS: 20610; J1100; J2795; J3301 ==

== ENCOUNTER → 2024-05-30 13:48 | Outpatient (BNVA) | payer MEDICARE, OTHER, SELFPAY | PROVIDERS: PCP Family Medicine; Visit Provider Podiatrist Foot & Ankle Surgery | DX: L60.0 Ingrowing nail (principal) | CPT/HCPCS: 99203 ==

== ENCOUNTER → 2024-06-30 08:06 | Outpatient (BNVA) | payer MEDICARE, OTHER, SELFPAY | PROVIDERS: PCP Family Medicine; Visit Provider Specialist | DX: M19.012 Primary osteoarthritis, left shoulder (principal); Z71.89 Other specified counseling | CPT/HCPCS: 20610; J1100; J2795; J3301 ==

== ENCOUNTER 2024-07-20 08:30 | Oncology outpatient (recurring) (ONCR) | payer MEDICARE, OTHER, SELFPAY ==
--- NOTE | 2024-07-17 09:47 | N.ONRAD NP_ITS ---
Radiation Oncology New Patient Visit Patient: Maddy Trevino MR#: [id number] : 1945 Age: 79 Sex: Female Dictated by: Dr. Sanam Arzate Date of Service: 07/17/2024 Referring Physician(s) : Dr. Vo Diagnosis: Squamous cell carcinoma of the left lower lobe Radiotherapy to date: Summary > No prior radiation therapy. Chief Complaint / History of Present Illness: Patient is a 79-year-old lady who had symptoms of cough and congestion in November. She said over the last several years she has had repeat CT scans and the most recent one in April had showed that the spot that was being followed in the left lower lobe had increased slightly in size. This led to a PET scan on May 31, 2024 which showed that the 12 mm left lower lobe mass was indeed SUV positive at 7.5. She had a biopsy done on 07/07/2024 and this showed that the lesion was squamous cell carcinoma. She is here today to discuss SBRT for a 12 to 13 mm left lower lobe mass biopsy positive for squamous of carcinoma. Current Medications: alprazolam (Xanax) 0.5 mg PO DAILY carvedilol 6.25 mg PO BID doxycycline hyclate 100 mg PO BID 7 days hydrocodone-acetaminophen 5-325 mg 1 - 2 tabs PO .Q4-6H lansoprazole (Prevacid) 30 mg PO DAILY losartan TAKE 1 TABLET BY MOUTH ONCE DAILY FOR HIGH BLOOD PRESSURE methocarbamol 750 mg PO TID montelukast 10 mg PO DAILY mupirocin 2% 1 applic topical BID 2 weeks pregabalin (Lyrica) 50 mg PO TID Allergies: vigabatrin [From Sabril] Allergy (Severe, Verified 07/17/24 07:56) ALGY-Anaphylaxis latex Allergy (Verified 07/17/24 07:56) ALGY-Hives Penicillins Allergy (Verified 07/17/24 07:56) ALGY-Rash Sulfa (Sulfonamide Antibiotics) Allergy (Verified 07/17/24 07:56) ALGY-Anaphylaxis Medical History: No history of collagen vascular disease. No previous radiation therapy. COPD (chronic obstructive pulmonary disease) Hypertension Lupus Spinal stenosis Surgical History: Hx of appendectomy Family History: Sister Lupus Social History: Smoking and tobacco/nicotine status: never used tobacco/nicotine Second hand smoke exposure: No Alcohol intake: current Substance/Drug Use: never Caregiver/support person: No Lives independently: Yes Household members: spouse Housing: House Marital status: Number of children: 2 Number of grandchildren: 2 service: No Current occupational status: retired Current occupational exposures/hazards: No Pets and animals: Yes Do you think of yourself as: Straight/Heterosexual Current gender identity: Female Special edy needs: No Current Complaints / Review of Systems: . Vital Signs: Performed on 07/17/2024 8:19 AM BMI - 25.194 kg/m2 (high), Height - 60 in, Weight - 129 lbs, Temperature - 98.7 f, Pulse - 87 /min, Respiration - 17 /min, O2 Sat - 93 % (low), Pain - 8, Fatigue - 0 and BP - 151/ 88 mm(hg)(high/). Physical Exam: General: Patient is in no apparent distress today. She is companied by her and her daughter HEENT: Normocephalic atraumatic. Pupils are equal, sclera clear, extraocular muscles intact Pulmonary: Respiratory rate is regular nonlabored Cardiovascular: Regular rate and rhythm Abdomen: Moderately protuberant and android pattern Skin: Warm and dry Extremities: Without obvious edema or lymphedema in the upper extremities Neurological: Alert and orient x 3. Gait and speech within normal limits Psych: Affect appropriate for current situation Performance Status: 100 Pathology: Squamous cell carcinoma Lab: Imaging: See HPI Impression: Squamous cell carcinoma of the left lower lobe 12 to 13 mm Plan: I reviewed with the patient the different scans that she has had. We talked about how the PET scan that showed that the lesion in the lung was active. Her biopsy was positive for a type of lung cancer that generally does not spread until later. We talked about the radiation option versus surgery. We discussed the daily treatment regiment and the simulation process. We reviewed the risks and side effects both acute and long-term. After some discussion she is elected to proceed with the radiation. Will have her return to undergo simulation and plan for a 4-day course of treatment to the left lower lobe using SBRT. Signed by: 07/17/2024 9:45:32 AM <<Signature on File>> Time spent with patient:35 CPT Code: CPT Code:
== END 2024-07-25 23:59 | disposition home or self-care (01) ==
PROVIDERS: PCP Family Medicine; Visit Provider Radiology Radiation Oncology
DX: C34.32 Malignant neoplasm of lower lobe, left bronchus or lung (principal); F17.290 Nicotine dependence, other tobacco product, uncomplicated; Z51.0 Encounter for antineoplastic radiation therapy
CPT/HCPCS: 77300; 77301; 77334; 77338; 77470; 99205

== ENCOUNTER 2024-08-03 08:50 | Oncology outpatient (recurring) (ONCR) | payer MEDICARE, OTHER, SELFPAY ==
--- NOTE | 2024-08-07 09:17 | N.ONRD TS_ITS ---
Radiation Oncology Treatment Summary/OTV Patient: Maddy Trevino MR#: [id number] : 1945 Age: 79 Sex: Female Dictated by: Dr. Sanam Arzate Date of Service: 08/03/2024 Referring Physician(s) : Diagnosis: C34.32 - Malignant neoplasm of lower lobe, left bronchus or lung, Diagnosed 07/17/2024 (Active) Radiotherapy to Date: Course: LLL lung, Treatment Site: [id number], Ref. ID: [id number], Energy: 6X, Dose/Fx (cGy): 1,200, #Fx: 4 / 4, Dose Correction (cGy): 0, Total Dose Delivered (cGy): 4,800, Start Date: 07/27/2024, End Date: 08/03/2024, Elapsed Days: 7 VITAL SIGNS: Performed on 08/03/2024 11:18 AM BMI - 24.92 kg/m2 (high), Height - 60 in, Weight - 127.6 lbs, Temperature - 96.7 f, Pulse - 88 /min, Respiration - 18 /min, O2 Sat - 99 %, Pain - 0, Fatigue - 0 and BP - 156/ 88 mm(hg)(high/). Clinical Summary: The patient tolerated RT well. Patient did not have any ill effects getting through her SBRT treatment Plan: End of treatment today. Continue on the above medication until the skin reaction resolves. Follow up in one month. Signed by: Dr. Sanam Arzate>08/07/2024 9:15:19 AM <<Signature on File>>
== END 2024-08-25 23:59 | disposition home or self-care (01) ==
PROVIDERS: PCP Family Medicine; Visit Provider Radiology Radiation Oncology
DX: Z51.0 Encounter for antineoplastic radiation therapy (principal); C34.32 Malignant neoplasm of lower lobe, left bronchus or lung
CPT/HCPCS: 77336; 77373

== ENCOUNTER 2024-08-30 08:02 | Oncology outpatient (recurring) (ONCR) | payer MEDICARE, OTHER, SELFPAY ==
--- NOTE | 2024-08-30 08:39 | ONCRAD EPV_ITS ---
Radiation Oncology Established Patient Visit Patient: Maddy Trevino [id number] : 1945 Age: 79 Sex: Female Dictated by: Dr. Sanam Arzate Date of Service: 08/30/2024 Referring Physician(s) : Diagnosis: C34.32 - Malignant neoplasm of lower lobe, left bronchus or lung, Diagnosed 07/17/2024 (Active) Patient returns today for her first month check after having SBRT completed August 03. While she was under treatment her was also diagnosed with brain metastasis. He is currently in a correction. She is feeling fatigued from her current clinical situation with her . She otherwise has noticed no changes in her respiratory status. Her appetite remains stable. Radiotherapy to Date: Course: LLL lung, Treatment Site: [id number], Ref. ID: [id number], Energy: 6X, Dose/Fx (cGy): 1,200, #Fx: 4 / 4, Dose Correction (cGy): 0, Total Dose Delivered (cGy): 4,800, Start Date: 07/27/2024, End Date: 08/03/2024, Elapsed Days: 7 Current History: Current Medications: Allergies: Current Complaints / Review of Systems: . Vital Signs: Performed on 08/30/2024 8:04 AM BMI - 25.155 kg/m2 (high), Height - 60 in, Weight - 128.8 lbs, Temperature - 96.4 f, Pulse - 93 /min, Respiration - 18 /min, O2 Sat - 92 % (low), Pain - 0, Fatigue - 0 and BP - 173/ 84 mm(hg)(high/). Physical Exam: General: Alert and oriented x 3. No acute distress. HEENT: Normocephalic atraumatic. Pupils are equal, sclera clear, extraocular muscles intact LUNGS: Respiratory rate is regular nonlabored HEART: Regular rate and rhythm. Performance Status: 100 Lab: None pending. Pathology: Primary, c34.32 - malignant neoplasm of lower lobe, left bronchus or lung, Diagnosed 07/17/2024 (active) . 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 Will go ahead and get a CT scan ordered first week in October. After that we can get CTs every 6 months. She is currently asymptomatic and has no issues. She will call once she has her CT scheduled so we will know when to look for the results. Signed by: 08/30/2024 8:37:35 AM <<Signature on File>> Time spent with patient: 15 CPT Code: * CPT Code: *
== END 2024-09-22 23:59 | disposition home or self-care (01) ==
PROVIDERS: PCP Family Medicine; Visit Provider Radiology Radiation Oncology
DX: C34.32 Malignant neoplasm of lower lobe, left bronchus or lung (principal); Z92.3 Personal history of irradiation
CPT/HCPCS: 99024

== ENCOUNTER → 2024-09-09 11:54 | Outpatient (BNVA) | payer MEDICARE, OTHER, SELFPAY | PROVIDERS: PCP Family Medicine; Visit Provider Registered Nurse Neonatal Intensive Care | DX: R06.00 Dyspnea, unspecified (principal); R91.8 Other nonspecific abnormal finding of lung field; M85.80 Other specified disorders of bone density and structure, unspecified site; M48.54XA Collapsed vertebra, not elsewhere classified, thoracic region, initial encounter for fracture; M40.294 Other kyphosis, thoracic region; J92.9 Pleural plaque without asbestos; R93.89 Abnormal findings on diagnostic imaging of other specified body structures; I70.0 Atherosclerosis of aorta | CPT/HCPCS: 71046 ==

== ENCOUNTER 2024-09-29 13:26 | Outpatient (CLI) | payer MEDICARE, OTHER, SELFPAY ==
--- NOTE | 2024-09-29 13:27 | MM_ITS ---
WS: [id number] BILATERAL 3D TOMOSYNTHESIS DIGITAL SCREENING MAMMOGRAPHY WITH CAD CLINICAL INFORMATION: SCREENING HISTORY: Screening mammogram. No current complaints. COMPARISON: 2023 TECHNIQUE: Bilateral CC and MLO views. FINDINGS: The breasts are composed of heterogeneous fibroglandular density tissue, which can limit the detection of small underlying mass lesions. No suspicious mass, asymmetry, calcifications, or architectural distortion. No evidence of malignancy. Incidental punctate and lucent centered calcifications. Dystrophic calcification LEFT breast. MM/MM [facility] tomosynthesis [id number] IMPRESSION: DENSITY: The breasts are heterogeneously dense, which may obscure small masses. BI-RADS: 2 - Benign FOLLOW UP: 1 Year Follow-up Recommend return to annual screening mammography.
== END 2024-09-29 13:27 | disposition home or self-care (01) ==
PROVIDERS: PCP Family Medicine; Visit Provider Family Medicine
DX: Z12.31 Encounter for screening mammogram for malignant neoplasm of breast (principal); R92.333 Mammographic heterogeneous density, bilateral breasts; R92.1 Mammographic calcification found on diagnostic imaging of breast
CPT/HCPCS: 77063; 77067

== ENCOUNTER 2024-10-03 02:51 | Inpatient (IN) | payer MEDICARE, OTHER, SELFPAY ==
[2024-10-03] VITALS (97 sets, daily range): BP systolic 53–186; BP diastolic 38–144; PULSE 45–102; RESP 13–35; TEMP 34.4–36.9; O2SAT 91–100; BMI 27.3; BMI 27.9
[2024-10-03] MEDS: sodium chloride 0.9% 1,000 ML 999 ML IV ×2 (02:55→06:22)
--- NOTE | 2024-10-03 02:55 | XRR_ITS ---
PROCEDURE INFORMATION: Exam: XR Chest Exam date and time: 10/03/2024 3:55 AM Age: 79 years old Clinical indication: Pain; Chest pressure; Additional info: Weakness TECHNIQUE: Imaging protocol: Radiologic exam of the chest. Views: 1 view. COMPARISON: CR XR chest 2V* [id number] 09/09/2024 11:57 AM FINDINGS: Lungs: There is linear density involving the left lower lung field suggesting atelectasis or scarring. No definite consolidation is appreciated. Pleural spaces: Unremarkable. No pleural effusion. No pneumothorax. Heart/Mediastinum: The heart is enlarged. Bones/joints: Unremarkable. XR/XR chest 1V portable [id number] IMPRESSION: 1. Linear scarring or atelectasis involving the left lower lung. No definite consolidation is appreciated.
--- NOTE | 2024-10-03 02:55 | CTR_ITS ---
PROCEDURE INFORMATION: Exam: CT Head Without Contrast Exam date and time: 10/03/2024 3:36 AM Age: 79 years old Clinical indication: Alteration of consciousness; Other: Found unresponsive family performed cpr; Additional info: Encephalopathy, altered mental status TECHNIQUE: Imaging protocol: Computed tomography of the head without contrast. Radiation optimization: All CT scans at this facility use at least one of these dose optimization techniques: automated exposure control; mA and/or kV adjustment per patient size (includes targeted exams where dose is matched to clinical indication); or iterative reconstruction. COMPARISON: No relevant prior studies available. RADIATION DOSE METRICS: Total DLP (mGy-cm): 1186.48 FINDINGS: Brain: There is mild to moderate small vessel disease. There is no evidence of acute parenchymal hemorrhage, extra-axial collection, or acute infarction. There is no mass effect, midline shift, or downward herniation. Cerebral ventricles: No ventriculomegaly. Paranasal sinuses: Visualized sinuses are unremarkable. No fluid levels. Mastoid air cells: Visualized mastoid air cells are well aerated. Bones: Unremarkable. No acute fracture. Soft tissues: Unremarkable. CT/CT head wo con* [id number] IMPRESSION: Veww-if-hjkztlap small vessel disease. No evidence of acute intracranial process.
--- NOTE | 2024-10-03 02:56 | ECG_ITS ---
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 Measurements Intervals [place] Rate: 91 P: 69 MS: 205 QRS: 81 QRSD: 85 T: 89 QT: 331 QTc: 408 Interpretive Statements SINUS RHYTHM WITH FREQUENT SUPRAVENTRICULAR PREMATURE COMPLEXES IN A BIGEMINAL PATTERN POSSIBLE LEFT ATRIAL ENLARGEMENT [-0.1mV P-WAVE IN V1/V2] MODERATE ST DEPRESSION [0.05+ mV ST DEPRESSION] Compared to ECG 10/09/2022 12:38:05 ST (T wave) deviation now present Electronically Signed On 10-06-2024 19:16:29 CDT by Jcarlos Winters M.D. [email or web address]
[2024-10-03] MEDS: norepinephrine 4 MG/250 ML BAG 30 MG IV (03:03)
--- NOTE | 2024-10-03 03:10 | W.ED.CPR ---
HPI - CPR General: Chief Complaint: Cardiac Arrest/CPR Stated Complaint: resp distress Time Seen by Provider: 10/03/24 02:53 History of Present Illness: 79 year old female with history of lupus, hypertension, COPD, lung cancer, currently going through treatment, uses 2 L of oxygen at nighttime who presents to the emergency room after having become unresponsive and receiving CPR by EMS. Spoke with family after her arrival and they state that she had been doing fine at that she just Sanchez the sleep and they tried to wake her up and she is still breathing but was unresponsive. When EMS arrived they report that she was pulseless and bradycardic. She received about 4 minutes of CPR and some epinephrine. Related Data Home Medications ?Medication ?Instructions ?Recorded ?Confirmed alprazolam 0.5 mg tablet (Xanax) 0.5 mg PO DAILY 09/08/22 09/29/24 carvedilol 6.25 mg tablet 6.25 mg PO BID 09/08/22 09/29/24 methocarbamol 750 mg tablet 750 mg PO TID 09/08/22 09/29/24 montelukast 10 mg tablet 10 mg PO DAILY 09/08/22 09/29/24 lansoprazole 30 mg capsule,delayed 30 mg PO DAILY 10/14/22 09/29/24 release (Prevacid) Previous Rx's ?Medication ?Instructions ?Recorded hydrocodone 5 mg-acetaminophen 325 1 - 2 tab PO .Q4-6H #40 tabs 10/14/22 mg tablet Allergies Allergy/AdvReac Type Severity Reaction Status Date / Time vigabatrin (From Sabril) Allergy Severe ALGY-Anaphy Verified 09/29/24 08:18 laxis latex Allergy ALGY-Hives Verified 09/29/24 08:18 Penicillins Allergy ALGY-Rash Verified 09/29/24 08:18 Sulfa (Sulfonamide Allergy ALGY-Anaphy Verified 09/29/24 08:18 Antibiotics) laxis Review of Systems Narrative: Constitutional symptoms: Negative except as documented in HPI. Skin symptoms: Negative except as documented in HPI. Eye symptoms: Negative except as documented in HPI. ENMT symptoms: Negative except as documented in HPI. Respiratory symptoms: Negative except as documented in HPI. Cardiovascular symptoms: Negative except as documented in HPI. Gastrointestinal symptoms: Negative except as documented in HPI. Genitourinary symptoms: Negative except as documented in HPI. Musculoskeletal symptoms: Negative except as documented in HPI. Neurologic symptoms: Negative except as documented in HPI. Psychiatric symptoms: Negative except as documented in HPI. Endocrine symptoms: Negative except as documented in HPI. PFSH ED PFSH: Medical History COPD (chronic obstructive pulmonary disease) Hypertension Lupus Spinal stenosis Surgical History Hx of appendectomy Family History Sister Lupus Social History Smoking and tobacco/nicotine status: current every day tobacco/nicotine user Second hand smoke exposure: No Alcohol intake: current Substance/Drug Use: never Caregiver/support person: No Lives independently: Yes Household members: spouse Housing: House Marital status: Number of children: 2 Number of grandchildren: 2 service: No Current occupational status: retired Current occupational exposures/hazards: No Pets and animals: Yes Do you think of yourself as: Straight/Heterosexual Current gender identity: Female Special edy needs: No Physical Exam Narrative: EXAM NARRATIVE: General: responds minimally to painful stimuli. Skin: Warm, dry Head: Normocephalic, atraumatic. Neck: Supple, trachea midline. Eye: Extraocular movements are intact. Ears, nose, mouth and throat: Dry oral mucosa. Cardiovascular: Regular rate and rhythm, Normal peripheral perfusion. Respiratory: Lungs are clear to auscultation, respirations are non-labored, breath sounds are equal, Symmetrical chest wall expansion. Gastrointestinal: Soft, Non distended, Normal bowel sounds. Musculoskeletal: no deformity. Neurological: Not Alert and oriented, Patient fairly quickly becomes more responsive. As her blood pressure is improved. She has told us her name. But she is fairly agitated. She is moving all extremities and does not have any obvious focal motor deficits. Psychiatric: unable to assess. Course Vital Signs: Vital signs: Vital Signs Temperature 94.3 F L 10/03/24 03:27 Pulse Rate 90 10/03/24 03:21 Respiratory Rate 20 H 10/03/24 03:21 Blood Pressure 115/58 10/03/24 03:27 Pulse Oximetry 96 10/03/24 03:27 Oxygen Delivery Me thod Nasal Cannula 10/03/24 03:27 Oxygen Flow Rate 4 10/03/24 03:27 MDM - Cardiac Arrest/CPR Medical Decision Making Medical decision making: Differential diagnosis including but not limited to and based on the above HPI, review of systems and physical exam: Sepsis, UTI, pneumonia etc. Cardiac arrest secondary to cardiogenic shock or bradycardia or other dysrhythmia. Orders placed to evaluate differential diagnosis based on the above differential, HPI and physical exam CT head: No acute intracranial process. no intracranial hemorrhage, no evidence of infarct. no evidence of acute fracture. Films were interpreted by myself the emergency room provider and pending final radiology review. Chest x-ray: May be some infiltrate versus effusion in the left lower lung. There is some obscuring by stickers on the patient's body. Films were interpreted by myself the emergency room provider and pending final radiology review. EKG: Time 3:10 AM. Rate 91. Bigeminal appearing EKG. Some ST depression. No obvious ST elevation. This was reviewed and interpreted by myself the ER physician at 3:11 AM Lab Review: Laboratory results were reviewed and interpreted by myself the emergency room physician. Mild leukocytosis white count of 16,000. No anemia. No renal failure. Sodium is low at 128. However she is chronically low. D-dimer was ordered by the hospitalist and is elevated. A CTA has been ordered. I reviewed the patient's medical record. Reexamination: Patient is much more alert but still somewhat confused and agitated. No focal motor deficits. O2 sats are in the upper 90s to 100 on 4 L nasal cannula at this point. She is still on some pressor support. Consultation: I spoke with Dr. Lund who is on-call for the hospitalist service to admit the patient to the ICU. Official reads of CTA, CT of the abdomen and a echo are pending at admission. Assessment and plan: Cardiac arrest Sepsis Hypotension Hyponatremia Hypothermia -2 L normal saline bolus. Fluid volumes based on ideal body weight. -Broad-spectrum antibiotics were administered. Meropenem and Zyvox. -Sepsis quality measures. -Lactic acid with a reflex was ordered. -Blood cultures were ordered. -I discussed the patient with the hospitalist on-call who is admitting the patient. - Discussed findings and plan with patient. Answered any questions. - All laboratory values were reviewed and interpreted personally by myself, the ER physician - All imaging was reviewed and interpreted personally by myself, the ER physician. - Evaluation and treatment of this problem were appropriate in the emergency setting Critical care -I spent a total of >35 minutes of critical care time managing the patient, independent of any other practitioner. -The time involved in the performance of separately reportable procedures was not counted towards critical care time. Lab Data 10/03/24 03:20 10/03/24 03:[address] 10/03/24 02:55 IMPRESSION: [id number]-na-[id number] small vessel disease. No evidence of acute intracranial process. Laboratory Results WBC 14.85 10^3/uL (3.29-11.43) H 10/03/24 03:20 RBC 3.58 10^6/uL (3.85-5.65) L 10/03/24 03:20 Hgb 12.00 g/dL (11.27-16.99) 10/03/24 03:20 Hct 37.1 % (36-47) 10/03/24 03:20 MCV 103.6 fl (85-98) H 10/03/24 03:20 MCH 33.5 pg (27-33) H 10/03/24 03:20 MCHC 32.3 g/dL (30-55) 10/03/24 03:20 RDW 11.9 % (12.1-15.1) L 10/03/24 03:20 Plt Count 304 10^3/cmm (157-399) 10/03/24 03:20 MPV 7.8 fL (7.4-10.4) 10/03/24 03:20 Neut % (Auto) 58.5 % 10/03/24 03:20 Lymph % (Auto) 28.6 % 10/03/24 03:20 [place] % (Auto) 7.5 % 10/03/24 03:20 Eos % (Auto) 1.1 % 10/03/24 03:20 Baso % (Auto) 0.4 % 10/03/24 03:20 Neut # (Auto) 8.68 10^3/uL (1.8-7.7) H 10/03/24 03:20 Lymph # (Auto) 4.3 10^3/uL (0.8-4.8) 10/03/24 03:20 [place] # (Auto) 1.1 10^3/uL (0.2-0.9) H 10/03/24 03:20 Eos # (Auto) 0.2 10^3/uL (0.0-0.8) 10/03/24 03:20 Baso # (Auto) 0.1 10^3/uL (0.0-0.1) 10/03/24 03:20 Nucleated RBC % (auto) 0 % 10/03/24 03:20 Nucleated RBCs # 0.0 /100WBC 10/03/24 03:20 D-Dimer 10.78 ug/mLFEU (0-0.59) H 10/03/24 03:20 Specimen Type Arterial 10/03/24 03:00 Sample Site Radial, right 10/03/24 03:00 ABG pH 7.20 (7.35-7.45) L 10/03/24 03:00 ABG pCO2 43.7 mmHg (35-45) 10/03/24 03:00 ABG pO2 493.0 mmHg (80.0-100.0) H 10/03/24 03:00 ABG HCO3 17.0 mmol/L (22-26) L 10/03/24 03:00 ABG O2 Saturation > 99.1 10/03/24 03:00 ABG Base Excess -10.6 mmol/L (-2.0-2.0) L 10/03/24 03:00 Reji Test Pos 10/03/24 03:00 A-a O2 Gradient Not Reportable 10/03/24 03:00 Hematocrit 36.6 % (37-47) L 10/03/24 03:00 Hgb O2 Saturation 97.2 % (95-100) 10/03/24 03:00 Carboxyhemoglobin 1.8 %THgb (0.4-20.1) 10/03/24 03:00 Methemoglobin 0.7 % (0.4-1.5) 10/03/24 03:00 Total Hemoglobin 11.9 g/dL (12-16) L 10/03/24 03:00 Sodium 126.0 mmol/L (131-143) L 10/03/24 03:00 Potassium 5.3 mmol/L (3.5-5.0) H 10/03/24 03:00 Glucose 194.0 mg/dL (70-115) H 10/03/24 03:00 Ionized Calcium 1.1 mmol/L (1.1-1.4) 10/03/24 03:00 O2 Delivery Device Ambu 10/03/24 03:00 O2 Liters/Min 15.0 % 10/03/24 03:00 Internal Review And Audit Compliance ID [id number] 10/03/24 03:00 Sodium 128 mmol/L (136-145) L 10/03/24 03:20 Potassium 4.6 mmol/L (3.5-5.1) 10/03/24 03:20 Chloride 90 mmol/L (98-107) L 10/03/24 03:20 Carbon Dioxide 20 mmol/L (22-29) L 10/03/24 03:20 Anion Gap 22.6 (5-19) H 10/03/24 03:20 BUN 12 mg/dL (8-23) 10/03/24 03:20 Creatinine 0.9 mg/dL (0.5-0.9) 10/03/24 03:20 GFR Calculation Not Reportable 10/03/24 03:20 Glucose 211 mg/dL (65-115) H 10/03/24 03:20 POC Glucose 163 mg/dL (70-110) H 10/03/24 03:12 Calculated Osmolality 272 mOsm/kg (285-295) L 10/03/24 03:20 Lactic Acid 7.4 mmol/L (0.5-2.2) H* 10/03/24 03:20 Calcium 8.5 mg/dL (8.5-10.5) 10/03/24 03:20 Phosphorus 5.2 mg/dL (2.5-4.5) H 10/03/24 03:20 Magnesium 2.5 mg/dL (1.7-2.3) H 10/03/24 03:20 Total Bilirubin 0.2 mg/dL (0.15-1.2) 10/03/24 03:20 AST 51 U/L (0-32) H 10/03/24 03:20 ALT 31 U/L (0-33) 10/03/24 03:20 Alkaline Phosphatase 130 U/L (35-105) H 10/03/24 03:20 Troponin T Baseline 28 ng/L (0-10) H 10/03/24 03:20 C-Reactive Protein 3.0 mg/L (0.0-4.9) 10/03/24 03:20 Total Protein 6.3 g/dL (6.6-8.7) L 10/03/24 03:20 Albumin 3.9 g/dL (3.5-5.2) 10/03/24 03:20 Globulin 2.4 g/dL (1.3-4.6) 10/03/24 03:20 Procalcitonin 0.08 ng/mL (0-0.5) 10/03/24 03:20 TSH 2.51 uIU/mL (0.27-4.20) 10/03/24 03:20 Urine Color Yellow (Yellow) 10/03/24 03:30 Urine Appearance Clear (CLEAR) 10/03/24 03:30 Urine pH 7.5 (5-7) 10/03/24 03:30 Ur Specific [place] 1.007 (1.005-1.030) 10/03/24 03:30 Urine Protein 2+ (Negative) A 10/03/24 03:30 Urine Glucose (UA) Trace (Normal) H 10/03/24 03:30 Urine Ketones Negative (Negative) 10/03/24 03:30 Urine Blood 3+ (Negative) A 10/03/24 03:30 Urine Nitrate Negative (Negative) 10/03/24 03:30 Urine Bilirubin Negative (Negative) 10/03/24 03:30 Urine Urobilinogen 0.2 mg/dL (Negative) 10/03/24 03:30 Ur Leukocyte Esterase Negative (Negative) 10/03/24 03:30 Urine RBC 51-100 /hpf (0-2) H 10/03/24 03:30 Urine WBC 0-5 /hpf (0-5) 10/03/24 03:30 Ur Squamous Epith Cells 0-5 /hpf (0-5) 10/03/24 03:30 Amorphous Sediment Not Reportable 10/03/24 03:30 Urine Bacteria None seen /hpf (NONE) 10/03/24 03:30 Hyaline Casts 3.30 /lpf 10/03/24 03:30 Influenza A (PCR) Negative (Negative) 10/03/24 03:20 Influenza Type B (PCR) Negative (Negative) 10/03/24 03:20 RSV (PCR) Negative (Negative) 10/03/24 03:20 SARS-CoV-2 (PCR) Negative (Negative) 10/03/24 03:20 XR interpretation done by ED provider, pending radiology final review Discharge Plan Discharge Patient Disposition: Admitted As Inpatient Admit Provider: Edward Lund Clinical Impression: Cardiac arrest, Hypotension, Acute metabolic encephalopathy, Lactic acidosis, Sepsis, Hyponatremia, Hypothermia Condition: Stable Coding Level of Care Code ED Law Firm Consultant for Deejay Jones
[2024-10-03 03:12] LABS: ABG PCO2 43.7 mmHg (35-45); Arterial Blood Gas Hematocrit 36.6 % (37-47); Base Excess ABG -10.6 mmol/L (-2.0-2.0); Blood Gas Allen Test Pos; Blood Gas Operator Identificat JDB; Blood Gas Sample Site Radial, right; Blood Gas Sample Type Arterial; Carboxyhemoglobin 1.8 %THgb (0.4-20.1); HGB O2 Sat 97.2 % (95-100); Ionized Calcium Level - ABG 1.1 mmol/L (1.1-1.4); Methemoglobin 0.7 % (0.4-1.5); Oxygen Device AMBU; Oxygen Saturation ABG > 99.1; Potassium Level - ABG 5.3 mmol/L (3.5-5.0); Total Hemoglobin 11.9 g/dL (12-16)
[2024-10-03] MEDS: sodium bicarbonate 8.4% 1 mEq/mL 50mL Syr 100 MEQ IVP (03:23)
[2024-10-03] MEDS: EPINEPHrine 0.1 mg/mL SYR 10 mL 0.5 MG IVP (03:30)
--- NOTE | 2024-10-03 03:30 | PM.HP ---
Providers/Chief Complaint Primary Care Provider: Dagmar Santos DO Chief Complaint: resp distress History of Present Illness Maddy Trevino is a 79 year old female with history of lupus, hypertension, COPD, lung cancer, currently going through treatment, uses 2 L of oxygen at nighttime, presented via EMS. ?On arrival patient was able to follow some commands, she was able to open her eyes to commands, able to move her extremities, as per the EMS they were called to respond to shortness of breath around 2 AM, on arrival CPR was started when patient fell on the ground and became pulseless, after 6 minutes of CPR and 1 round of epi ROSC was obtained, she was not intubated in the field, she did not receive any shock, she was able to follow commands in the ER, EKG showed bigeminy rhythm, ABG showed metabolic acidosis, hyponatremia, hyperkalemia, Meet sepsis criteria, received linezolid and meropenem, bicarb, IV fluid hydration along vasopressors She is hypothermic with tachypnea high lactic acid leukocytosis Requested CTA chest because her D-dimer was extremely high, patient has been requiring vasopressors Levophed, we had to go up on Levophed up to 16 mics, I will also request epinephrine drip CT abdomen pelvis is also pending Patient is able to answer simple questions, she was able to tell me her name, date of , she was able to recognize her sister at the bedside Patient follows up with heme-onc outpatient, finished her radiotherapy, chemotherapy was put on hold, oncology was waiting for another CT scan to evaluate progression of cancer before proceeding with chemotherapy, she has non-small cell lung cancer, squamous cell, Please note, patient was evaluated in August for respiratory symptoms when she was given ciprofloxacin for 10 days which improved her shortness of breath and fever, she was using 2 L of oxygen at nighttime.? Received cortisone steroid injection left shoulder 09/29. Review of Systems General: Reports: ROS unobtainable due to medical condition and ROS unobtainable due to mental status Const: Reports: chills Eyes: Denies: change in vision ENMT: Denies: throat pain Card: Reports: chest pain Resp: Reports: dyspnea GI: Reports: nausea Medications/Allergies Home Medications ?Medication ?Instructions ?Recorded ?Confirmed ?Last Taken ?Type alprazolam 0.5 mg tablet (Xanax) 0.5 mg PO DAILY 09/08/22 09/29/24 10/13/22 History carvedilol 6.25 mg tablet 6.25 mg PO BID 09/08/22 09/29/24 10/14/22 History methocarbamol 750 mg tablet 750 mg PO TID 09/08/22 09/29/24 10/13/22 History montelukast 10 mg tablet 10 mg PO DAILY 09/08/22 09/29/24 10/12/22 History hydrocodone 5 mg-acetaminophen 325 1 - 2 tab PO .Q4-6H #40 tabs 10/14/22 09/29/24 Unknown Rx mg tablet lansoprazole 30 mg capsule,delayed 30 mg PO DAILY 10/14/22 09/29/24 10/14/22 History release (Prevacid) Allergies Allergy/AdvReac Type Severity Reaction Status Date / Time vigabatrin (From Sabril) Allergy Severe ALGY-Anaphy Verified 09/29/24 08:18 laxis latex Allergy ALGY-Hives Verified 09/29/24 08:18 Penicillins Allergy ALGY-Rash Verified 09/29/24 08:18 Sulfa (Sulfonamide Allergy ALGY-Anaphy Verified 09/29/24 08:18 Antibiotics) laxis PFSH Acute PFSH: Medical History COPD (chronic obstructive pulmonary disease) Hypertension Lupus Spinal stenosis Surgical History Hx of appendectomy Family History Sister Lupus Social History Smoking and tobacco/nicotine status: current every day tobacco/nicotine user Second hand smoke exposure: No Alcohol intake: current Substance/Drug Use: never Caregiver/support person: No Lives independently: Yes Household members: spouse Housing: House Marital status: Number of children: 2 Number of grandchildren: 2 service: No Current occupational status: retired Current occupational exposures/hazards: No Pets and animals: Yes Do you think of yourself as: Straight/Heterosexual Current gender identity: Female Special edy needs: No Vitals/I&O/Wt Last Vital Signs Temp 94.3 F L 10/03/24 03:27 Pulse 90 10/03/24 03:21 Resp 20 H 10/03/24 03:21 BP 115/58 10/03/24 03:27 Pulse Ox 96 10/03/24 03:27 O2 Del Method Nasal Cannula 10/03/24 03:27 O2 Flow Rate 4 10/03/24 03:27 10/02/24 10/02/24 10/03/24 14:59 22:59 06:59 Intake Total 2.5 / 2.5 Balance 2.5 / 2.5 Weight last 48 hrs Weight 65.771 kg Physical Exam Narrative: Low blood pressure Supine Able to follow commands Drowsy Lethargic and fatigue Able to answer her name, able to tell us date of Able to recognize family members at the bedside GCS 13 Nondistended abdomen Lower extremity skin mottling improved with pressors Hypothermic when she came in I do not appreciate any focal deficits Currently on 4 L nasal cannula saturating 94% Urinary Catheter Management: Rogers: Cath Placed During This Visit: yes Urinary Catheter Date of Insertion: 10/03/24 Urinary Catheter Time of Insertion: 03:25 Sepsis: Is patient septic: Yes Focused sepsis exam performed: Yes Focused sepsis exam: Capillary refill greater than 3 sec. Skin mottling present Patient able to follow commands but patient is drowsy Hypothermia Saturating well on nasal cannula Patient is tachypneic breathing rate around 20 Heart rate is around 50-55 Saturating 94% on 4 L nasal cannula Date exam was performed: 10/03/24 Time exam was performed: 03:35 Data 10/03/24 03:20 10/03/24 03:20 A&P Assessment and plan (1) Hypotension: (2) Cardiac arrest: (3) Hyponatremia: (4) Lactic acidosis: (5) Lung cancer, lower lobe: Qualifiers: Laterality: right Qualified Code(s): C34.31 - Malignant neoplasm of lower lobe, right bronchus or lung (6) Sepsis: (7) Lupus (systemic lupus erythematosus): (8) Acute metabolic encephalopathy: (9) Hypothermia: (10) Septic shock: (11) Non-STEMI (non-ST elevated myocardial infarction): Plan Septic shock Source is unknown at this point Patient has been given broad-spectrum antibiotics Septic bolus administered Currently on Levophed, requested epinephrine bicarb drip turned off Patient has been hypothermic in the ER, Nuris toluer was used Criteria of sepsis met with tachypnea tachycardia low temperature lactic acidosis endorgan damage and leukocytosis Requested blood and urine culture Sepsis induced metabolic encephalopathy Blood gas showed compensated pH with metabolic acidosis Able to protect airway Patient is being monitored closely for intubation, at this point no active emesis, she is able to protect airway, able to follow commands CT head unremarkable Non-STEMI Patient complaining of pain around chest compression area Bigeminy rhythm EKG not showing any infarctive changes, ST depression noted Start aspirin and Plavix loading dose, will give her these medications when she is more awake and alert and able to swallow Start therapeutic Lovenox her D-dimer is extremely high CTA chest requested Please consult cardiology in the morning Acute on chronic hypoxia At baseline uses 2 L at nighttime currently on 4 L CTA chest report is pending History of lung cancer: Status post radiotherapy Chronic hyponatremia Continue IV fluids clinically patient does not seem to be fluid overloaded I would states she is dehydrated Continue normal saline at this point Recheck sodium after 4 hours Metabolic acidosis: Bicarb drip turned off this morning, it ran for about 3 to 4 hours Lactic acidosis: Improving with IV fluid hydration Full code N.p.o. Requested PICC line DVT prophylaxis: Therapeutic Lovenox GI prophylaxis: Protonix PDMP PDMP Reviewed: Not Reviewed Attestations Medical Necessity Statement*: More than 2 midnights anticipated for septic shock management Diagnoses Hypotension I95.9 Cardiac arrest I46.9 Hyponatremia E87.1 Lactic acidosis E87.20 Malignant neoplasm of lower lobe of right lung C34.31 Laterality: right Sepsis A41.9 Lupus (systemic lupus erythematosus) M32.9 Acute metabolic encephalopathy G93.41 Hypothermia T68.XXXA Septic shock A41.9; R65.21 Non-STEMI (non-ST elevated myocardial infarction) I21.4
[2024-10-03 03:31] LABS: Basophils # 0.1 10^3/uL (0.0-0.1); Basophils % 0.4 %; Eosinophils # 0.2 10^3/uL (0.0-0.8); Eosinophils % 1.1 %; Hematocrit 37.1 % (36-47); Lymphocytes # 4.3 10^3/uL (0.8-4.8); Lymphocytes % 28.6 %; Mean Corpuscular HGB Conc 32.3 g/dL (30-55); Mean Corpuscular Hemoglobin 33.5 pg (27-33); Mean Corpuscular Volume 103.6 fl (85-98); Mean Platelet Volume 7.8 fL (7.4-10.4); Monocytes # 1.1 10^3/uL (0.2-0.9); Monocytes % 7.5 %; Neutrophils # 8.68 10^3/uL (1.8-7.7); Neutrophils % 58.5 %; Nucleated Red Blood Cells % 0 %; Platelet Count 304 10^3/cmm (157-399); Red Blood Count 3.58 10^6/uL (3.85-5.65); Red Cell Distribution Width 11.9 % (12.1-15.1); White Blood Count 14.85 10^3/uL (3.29-11.43)
[2024-10-03] MEDS: EPINEPHrine 1 mg/mL INJ 0.5 MG IVP (03:39)
--- NOTE | 2024-10-03 03:39 | USCV_ITS ---
Maddy Trevino Age: 79 Gender: F : 1945 Exam Date: 10/03/2024 03:51 Ordering Phys: Edward Lund MD Technologist: LEXIS [place]am Location[place] [facility] [place] Indication: pea lupus, HTN COPD, lung CA o2-dependent 2L, bigeminy BP: 115 / 58 HR: 76 Rhythm: Sinus arrythmia - bigeminy Technical Quality: Adequate MEASUREMENTS (Male / Female) Normal Values 2D ECHO LV Diastolic Diameter PLAX 2.8 cm 4.2 - 5.9 / 3.9 - 5.3 cm IVS Diastolic Thickness 1.2 cm 0.6 - 1.0 / 0.6 - 0.9 cm IVS Systolic Thickness 1.9 cm LVPW Diastolic Thickness 1.3 cm 0.6 - 1.0 / 0.6 - 0.9 cm LVPW Systolic Thickness 1.3 cm LVOT Diameter 1.8 cm LV Ejection Fraction 2D Teich 54.7 % LV Ejection Fraction MOD 4C 67.3 % LV Ejection Fraction MOD 2C 51.8 % LV Ejection Fraction 2C AL 51.5 % LA Diameter 3.1 cm Aorta at Sinotubular Diameter 2.1 cm IVC Diameter 0.9 cm M-MODE LA Ao Ratio MM 1.6 AV Cusp Separation MM 1.6 cm DOPPLER AV Peak Velocity 172.0 cm/s LVOT Peak Velocity 120.0 cm/s AV Area Cont Eq vti 2.3 cm squared AV Area Cont Eq pk 1.9 cm squared MV Peak Velocity 86.0 cm/s MV Area PHT 3.9 cm squared Mitral E to A Ratio 1.0 TV Peak Velocity 347.7 cm/s TR Peak Velocity 368.0 cm/s TR Peak Gradient 54.2 mmHg TV Peak E Velocity 45.0 cm/s PV Peak Velocity 95.0 cm/s FINDINGS Left Ventricle Normal left ventricular size, systolic function and wall thickness, with no regional wall motion abnormalities. Left ventricular ejection fraction is estimated at 60 %. Grade I/IV diastolic dysfunction (abnormal relaxation filling pattern), normal to mildly elevated filling pressures. Right Ventricle The right ventricle is normal in size and function. Right Atrium The right atrium is normal in size. Left Atrium The left atrium is normal in size. Mitral Valve Moderately thickened mitral valve. Mild mitral annular calcification. No mitral valve stenosis. Trace mitral valve regurgitation. Aortic Valve Moderate aortic valve calcification. No aortic valve stenosis. Trace aortic valve regurgitation. Tricuspid Valve Structurally normal tricuspid valve without significant stenosis or regurgitation. Pulmonary artery systolic pressure is normal. Pulmonic Valve [id number] pulmonary valve regurgitation. Pericardium Normal pericardium without effusion. Aorta Normal ascending aorta dimension. IVC The inferior vena cava appears normal. CONCLUSIONS Normal left ventricular size, systolic function and wall thickness, with no regional wall motion abnormalities. Left ventricular ejection fraction is estimated at 60 %. Grade I/IV diastolic dysfunction (abnormal relaxation filling pattern), normal to mildly elevated filling pressures. [id number] pulmonary valve regurgitation. There is no pericardial effusion. Right atrial pressure is around 5 mm of mercury. Edward Sanchez MD (Electronically Signed) Final Date: 03 October 2024 12:34 S
[2024-10-03 03:41] LABS: Glucose Point of Care 163 mg/dL (70-110)
--- NOTE | 2024-10-03 03:43 | PC.NURSE ---
IO to right lower leg established before ER arrival by EMS. IO removed.
[2024-10-03 03:47] LABS: Troponin(5th) Baseline 28 ng/L (0-10)
[2024-10-03 03:47] LABS: Bilirubin Urine Negative (Negative); Blood Urine 3+ (Negative); Glucose Urine UA Trace (Normal); Ketones Urine Negative (Negative); Leukocyte Esterase Urine Negative (Negative); Nitrate Urine Negative (Negative); Protein Urine 2+ (Negative); Specific Gravity, Urine 1.007 (1.005-1.030); Urine Appearance Clear (CLEAR); Urine Color Yellow (Yellow); Urobilinogen Urine 0.2 mg/dL (Negative); pH Urine 7.5 (5-7)
[2024-10-03 03:51] LABS: Alanine Aminotransferase 31 U/L (0-33); Albumin Level 3.9 g/dL (3.5-5.2); Alkaline Phosphatase 130 U/L (35-105); Anion Gap 22.6 (5-19); Aspartate Amino Transferase 51 U/L (0-32); Blood Urea Nitrogen 12 mg/dL (8-23); Calcium 8.5 mg/dL (8.5-10.5); Carbon Dioxide 20 mmol/L (22-29); Chloride 90 mmol/L (98-107); Globulin 2.4 g/dL (1.3-4.6); Glucose 211 mg/dL (65-115); Osmolality Calculated 272 mOsm/kg (285-295); Potassium 4.6 mmol/L (3.5-5.1); Sodium 128 mmol/L (136-145); Total Bilirubin 0.2 mg/dL (0.15-1.2); Total Protein 6.3 g/dL (6.6-8.7)
[2024-10-03 03:52] LABS: Bacteria Urine None Seen /hpf; RBC Urine 51-100 /hpf (0-2); Squamous Epithelial Cell Urine 0-5 /hpf (0-5); WBC Urine 0-5 /hpf (0-5)
[2024-10-03 04:04] LABS: D Dimer 10.78 ug/mLFEU (0-0.59)
[2024-10-03 04:05] LABS: Magnesium 2.5 mg/dL (1.7-2.3); Phosphorus 5.2 mg/dL (2.5-4.5)
[2024-10-03 04:06] LABS: Lactic Sepsis W/Reflex 7.4 mmol/L (0.5-2.2)
[2024-10-03 04:12] LABS: Add Urine Culture? Yes; UA Slide Review UA Slide Review Perf
--- NOTE | 2024-10-03 04:13 | CTR_ITS ---
PROCEDURE INFORMATION: Exam: CTA Chest With Contrast Exam date and time: 10/03/2024 4:44 AM Age: 79 years old Clinical indication: Abdominal pain; Chest pressure and chest wall pain; Additional info: Hypoxemia, tachycardia TECHNIQUE: Imaging protocol: Computed tomographic angiography of the chest with contrast. Exam focused on the arteries. 3D rendering (Not supervised by radiologist): MIP and/or 3D reconstructed images were created by the technologist. Radiation optimization: All CT scans at this facility use at least one of these dose optimization techniques: automated exposure control; mA and/or kV adjustment per patient size (includes targeted exams where dose is matched to clinical indication); or iterative reconstruction. Contrast material: OMNI 350; Contrast volume: 100 ml; Contrast route: INTRAVENOUS (IV); COMPARISON: CR (CHEST, ) 10/03/2024 3:55 AM RADIATION DOSE METRICS: Total DLP (mGy-cm): 897.83 FINDINGS: Pulmonary arteries: Normal. No pulmonary emboli. Aorta: The thoracic aorta is normal in caliber without aneurysm or dissection. There is calcified plaque involving the aorta and coronary vessels. Lungs: There are changes of emphysema involving both lungs. There are somewhat nodular density involving the left lower lobe and lingula likely inflammatory in origin. Linear atelectasis or scarring noted at the lung bases and right middle lobe. 3 mm pleural-based nodule noted involving the right middle lobe. 3 mm nodule noted involving the right upper lobe (series 7, image 124). There is mild bronchial wall thickening suggesting a degree of bronchitis or respiratory bronchiolitis. Pleural spaces: There are trace pleural effusions. Heart: Unremarkable. No cardiomegaly. No pericardial effusion. Lymph nodes: Unremarkable. No enlarged lymph nodes. Bones/joints: There is an old-appearing compression deformity involving T9. There are angular deformities involving multiple ribs on the right. These could be acute or chronic. No displaced rib fractures are noted on the right. There are multiple old-appearing rib fractures noted on the right. There are fractures involving the left 1st, 2nd, 3rd, 4th, 5th, 6th and 7th ribs. These fractures may be acute and/or subacute. Soft tissues: Unremarkable. PROCEDURE INFORMATION: Exam: CT Abdomen And Pelvis With Contrast Exam date and time: 10/03/2024 4:44 AM Age: 79 years old Clinical indication: Abdominal pain; Chest pressure and chest wall pain; Additional info: Hypoxemia, tachycardia TECHNIQUE: Imaging protocol: Computed tomography of the abdomen and pelvis with contrast. Radiation optimization: All CT scans at this facility use at least one of these dose optimization techniques: automated exposure control; mA and/or kV adjustment per patient size (includes targeted exams where dose is matched to clinical indication); or iterative reconstruction. Contrast material: OMNI 350; Contrast volume: 100 ml; Contrast route: INTRAVENOUS (IV); COMPARISON: CT abdomen pelvis w con* [id number] 01/02/2024 6:10 AM RADIATION DOSE METRICS: Total DLP (mGy-cm): 897.83 FINDINGS: Diaphragm: There may be a small hiatal hernia. Liver: There is diffuse fatty infiltration of the liver. The liver is otherwise normal. Gallbladder and biliary ducts: Normal. No calcified stones. No ductal dilation. Pancreas: Normal. No ductal dilation. Spleen: Normal. No splenomegaly. Adrenal glands: Normal. No mass. Kidneys and ureters: Normal. No hydronephrosis. Stomach and bowel: There are a few scattered colonic diverticula. No dilated loops of large or small bowel is appreciated. No bowel wall thickening is identified. Appendix: The appendix is not definitely identified. Intraperitoneal space: Unremarkable. No free air. No significant fluid collection. Vasculature: The aorta is normal in caliber. There is calcified plaque involving the aorta and its branch vessels. Lymph nodes: Unremarkable. No enlarged lymph nodes. Urinary bladder: There is a Rogers catheter within a decompressed urinary bladder. No definite abnormalities are otherwise noted with regards to the bladder. Reproductive: Unremarkable as visualized. Bones/joints: Unremarkable. No acute fracture. Soft tissues: Unremarkable. CT/CT angio chest w abd pel wo/w IMPRESSION: 1. Emphysema. 2. Trace pleural effusions with linear atelectasis or scarring involving the lung bases and right middle lobe. 3. Somewhat nodular opacity involving the lingula and anterior left lower lobe adjacent to the lingula most likely inflammatory. Recommend short-term follow-up after therapy to document resolution. 4. Bronchial wall thickening suggesting a degree of bronchitis or respiratory bronchiolitis. 5. Multiple rib fractures. Please see above comments. IMPRESSION: 1. Fatty infiltration of the liver. 2. Scattered colonic diverticula.
[2024-10-03 04:14] LABS: Procalcitonin 0.08 ng/mL (0-0.5); Thyroid Stimulating Hormone 2.51 uIU/mL (0.27-4.20)
[2024-10-03 04:22] LABS: Influenza A NEGATIVE (Negative); Influenza B NEGATIVE (Negative); Respiratory Syncytial Virus Ce NEGATIVE (Negative); SARS-CoV-2 PCR NEGATIVE (Negative)
--- NOTE | 2024-10-03 04:56 | ECG_ITS ---
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
[2024-10-03] MEDS: iohexol 350 mg/mL 500 mL Btl (per mL) IV (05:09)
[2024-10-03] MEDS: meropenem 500 mg SDV IVP (05:10)
[2024-10-03] MEDS: linezolid premix 600 MG/300 ML PREMIX 300 MG IV ×2 (05:14→15:37)
[2024-10-03 05:17] LABS: Reflex Lactate Order REFLEX LACTIC ORDERD
[2024-10-03] MEDS: clindamycin 900 MG/50 ML PREMIX 100 MG IV (05:42)
[2024-10-03] MEDS: acetaminophen 1,000 MG/100 ML PIGGYBACK 400 MG IV (05:51)
[2024-10-03 06:24] LABS: Troponin 5 2HR 45.41 ng/L (0-10)
[2024-10-03 06:31] LABS: Lactic Acid level (Lactate) 5.2 mmol/L (0.5-2.2); Troponin 5 2HR Delta 17.41 ABS# (0-10)
[2024-10-03] MEDS: ondansetron 2 mg/ML SDV 2 mL 4 MG IVP ×3 (06:35→18:40)
[2024-10-03] MEDS: EPINEPHrine 2.5 MG in sodium chloride 0.9% 250 ML 39.4 MG IV (07:05)
[2024-10-03 07:27] LABS: Sodium 130 mmol/L (136-145)
--- NOTE | 2024-10-03 07:44 | PC.NURSE ---
assumed PT care @[phone]
--- NOTE | 2024-10-03 07:45 | PC.NURSE ---
Unable to titrate Levophed in MAR. Listed below is dosage rate change. 0400 - 6mcg/min 0410 -6mcg/min 0420 - 6mcg/min 0430 - 6mcg/min 0440 - 6mcg/min 0450 - 6mcg/min 0500 - 6mcg/min 0510- 4mcg/min 0520 - 4mcg/min 0530 - 2 mcg/min 0540 - 2mcg/min 0550 - 2mcg/min 0600 - paused 0610 - Dr. Oakley verbal order to start at 10mcg/min 0620 - 12mcg/min 0630 - 14mcg/min 0640 - 16mcg/min 0645- MD verbal order to go up to 18mcg/min 0700 - 18mcg/min 0710 - 18mcg/min 0720 - 18 mcg/min 0730 - 18mcg/min
[2024-10-03] MEDS: enoxaparin 80 mg/0.8 mL Syringe 70 MG SUBCUT ×2 (07:52→18:26)
[2024-10-03] MEDS: clopidogrel 300 mg Tablet PO (07:55)
[2024-10-03] MEDS: aspirin 325 mg EC Tablet PO (07:55)
[2024-10-03] MEDS: sodium chloride 0.9% 1,000 ML 100 ML IV ×2 (07:58→18:46)
--- NOTE | 2024-10-03 08:03 | PC.NURSE ---
PT is awake alert and oriented to person place and time. PT is requesting pain meds D/T left side rib pain.
--- NOTE | 2024-10-03 08:30 | PC.NURSE ---
This nurse spoke with Dr. Jeter about Pt's pain concerns and blood pressure. Verbal order to leave levophed at 8mcg/min and stop epi drip.
[2024-10-03] MEDS: oxyCODONE 5 mg IR Tab/Cap PO (08:36)
[2024-10-03] MEDS: aztreonam 2,000 MG in sodium chloride 0.9% (plus) 100 ML 200 MG IV ×2 (08:43→20:42)
--- NOTE | 2024-10-03 08:46 | PC.NURSE ---
titrated oxygen down to 4Lper/min
--- NOTE | 2024-10-03 09:01 | ECG_ITS ---
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
[2024-10-03 10:21] LABS: Troponin 5 6HR 52.25 ng/L (0-10)
[2024-10-03 10:23] LABS: Troponin 5 6HR Delta 24.25 ng/L (0-12)
[2024-10-03 10:24] LABS: Lactic Sepsis W/Reflex 4.1 mmol/L (0.5-2.2)
[2024-10-03] MEDS: morphine 4 mg/mL SDV 1 mL 2 MG IVP ×2 (10:37→15:36)
[2024-10-03] MEDS: pantoprazole 40 mg SDV IVP ×2 (10:41→18:27)
[2024-10-03 11:40] LABS: Reflex Lactate Order REFLEX LACTIC ORDERD
[2024-10-03 11:50] LABS: Alanine Aminotransferase 40 U/L (0-33); Albumin Level 3.5 g/dL (3.5-5.2); Alkaline Phosphatase 107 U/L (35-105); Aspartate Amino Transferase 65 U/L (0-32); Blood Urea Nitrogen 11 mg/dL (8-23); Calcium 7.6 mg/dL (8.5-10.5); Carbon Dioxide 25 mmol/L (22-29); Chloride 90 mmol/L (98-107); Globulin 2.5 g/dL (1.3-4.6); Glucose 111 mg/dL (65-115); Osmolality Calculated 266 mOsm/kg (285-295); Sodium 128 mmol/L (136-145); Total Bilirubin 0.4 mg/dL (0.15-1.2)
[2024-10-03 11:56] LABS: Anion Gap 17.3 (5-19); Potassium 4.3 mmol/L (3.5-5.1)
--- NOTE | 2024-10-03 12:22 | P.PN_ITS ---
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 Was seen in clinic on 09/09/2024 and started on a 10-day course of ciprofloxacin on 09/01/2024. Noted to be hypoxic during the visit, with oxygen saturation of 88%, and was placed on 2L oxygen via nasal cannula. Seen for a left shoulder cortisone injection due to chronic shoulder pain on 09/29/2024, which included Decadron, Cellog, Lidocaine, and Ropivacaine, without apparent complications. Presented to the emergency room earlier today after being found unresponsive. EMS arrived and initiated CPR. Family reported inability to wake her up. Received 6 minutes of CPR before return of spontaneous circulation (ROSC) and one dose of epinephrine. Initial evaluation in the ER revealed: - Laboratory Findings: WBC 14, hemoglobi n 12, hematocrit 37, platelet count 304, elevated D-dimer at 10.7, arterial blood gas showing pH 7.2, PCO2 43.7, PO2 493, bicarbonate 17, ionized calcium 1.1, sodium 128 (history of chronic hyponatremia), potassium 4.6, chloride 90, bicarbonate 20, BUN 12, creatinine 0.9, lactic acid initially 7.4, repeat 5.2, then 4.1 hours later, phosphorus 5.2, magnesium 2.5, AST 51, ALT 31, alkaline phosphatase 130, troponin T baseline 28, increasing to 45 at 120 minutes (delta 17.4), CRP negative at 3.0, TSH 2.5. Urinalysis showed 2+ protein, 3+ blood, 51-100 RBCs, negative leukocyte esterase and nitrites. Influenza, COVID-19, and RSV were negative. - Imaging Studies: Chest x-ray showing l inear scarring or atelectasis involving the left lower lobe, no definitive consolidation. Head CT showing mild to moderate small vessel disease, no acute intracranial process. CT chest/abdomen/pelvis showing emphysema in both lungs, nodular densities in the left lower lobe and lingula likely inflammatory, linear atelectasis or scarring in lung bases and right middle lobe, 3mm pleural-based nodule in the left middle lobe, 3mm nodule in the right upper lobe, bronchial wall thickening suggesting bronchitis or respiratory bronchitis, unremarkable heart without cardiomegaly or pericardial effusion, multiple old-appearing rib fractures (left 1-7) likely acute from CPR, fatty liver infiltration, and scattered chronic diverticula. On arrival, vital signs were blood pressure 104/66, heart rate 70, respiratory rate 17, oxygen saturation 92%. Alert and awake. Heart rate subsequently decreased to the 40s. Started on IV pressors, maxed out on Levophed and Epinephrine drip. Blood pressure increased to systolic 180s, at which point pressors were stopped. Met SIRS criteria for possible sepsis. Blood cultures and urine culture sent, no growth yet Medications: Reviewed: Yes Vitals/I&O/Wt Last Vital Signs Temp 97.7 F 10/03/24 08:46 Pulse 85 10/03/24 11:49 Resp 21 H 10/03/24 11:49 BP 149/73 10/03/24 11:49 Pulse Ox 99 10/03/24 11:49 O2 Del Method Nasal Cannula 10/03/24 11:49 O2 Flow Rate 2 10/03/24 11:49 10/02/24 10/03/24 10/03/24 22:59 06:59 14:59 Intake Total 1532.00 / 1532.00 1188.035 / 1188.035 Balance 1532.00 / 1532.00 1188.035 / 1188.035 Weight last 48 hrs Weight 65.771 kg Physical Exam 2 Urinary Catheter Management: Rogers: Cath Placed During This Visit: yes Reason for Continuing Indwelling Catheter: Accurate Measurement of Urinary Output in Critically Ill Patients Urinary Catheter Date of Insertion: 10/03/24 Urinary Catheter Time of Insertion: : Data 10/04/24 05:43 10/04/24 05:43 Micro: Microbiology 10/03/24 04:30 Blood Culture - Preliminary Blood SPECIMEN COLLECTED 10/03/24 04:30 Blood Culture - Preliminary Blood SPECIMEN COLLECTED A&P Assessment and plan (1) Hypotension: (2) Cardiac arrest: (3) Hyponatremia: (4) Lactic acidosis: (5) Lung cancer, lower lobe: Qualifiers: Laterality: right Qualified Code(s): C34.31 - Malignant neoplasm of lower lobe, right bronchus or lung (6) Sepsis: (7) Lupus (systemic lupus erythematosus): (8) Acute metabolic encephalopathy: (9) Hypothermia: (10) Septic shock: (11) Non-STEMI (non-ST elevated myocardial infarction): Plan Cardiac Arrest - Presented after being found unresponsive at home, received 6 minutes of CPR by EMS before ROSC, requiring one dose of epinephrine. Etiology unclear at this time. Differential Diagnosis: 1. Sepsis, given SIRS criteria and possible infectious source. 2. Cardiac etiology, given elevated troponin, though no clear ischemic changes on ECG. 3. Pulmonary embolism, given elevated D-dimer and history of malignancy, though no clear findings on CT chest. Plan: 1. Monitor off pressors for now 2. Echocardiogram to assess for structural heart disease or wall motion abnormalities. 3. Trend troponins and ECGs to evaluate for evolving ischemia or infarction. 4. Cardiology consulted Sepsis - Meets SIRS criteria with tachycardia, tachypnea, and leukocytosis. Possible infectious sources include pneumonia given lung findings on imaging, or urinary tract infection given urinalysis results. Blood cultures and urine culture pending. Differential Diagnosis: 1. Pneumonia, given nodular densities in the lungs and bronchial wall thickening on CT chest. 2. Urinary tract infection, given pyuria and hematuria on urinalysis. Plan: 1. Empiric broad-spectrum antibiotics with azactam 2g IV q12h (penicillin allergy), clindamycin 900mg IV q8h, and Zyvox 600mg IV q12h. 2. Follow up blood cultures and urine culture, adjust antibiotics based on sensitivities. 3. Monitor for signs of septic shock, maintain adequate perfusion with IV fluids and pressors. Acute Hypoxic Respiratory Failure on Chronic -Presented with hypoxia, requiring 2L oxygen via nasal cannula. Likely multifactorial given underlying COPD, possible pneumonia, and recent cardiac arrest. Plan: 1. Maintain oxygen saturation >92% with supplemental oxygen. 2. Incentive spirometry and pulmonary toileting to prevent atelectasis. 3. Chest physiotherapy as tolerated. 4. Consider bronchodilators if wheezing or bronchospasm present. Metabolic Acidosis - Presented with pH 7.2, bicarbonate 17, and lactic acid 7.4, likely due to hypoperfusion from cardiac arrest and sepsis. Plan: 1. Sodium bicarbonate drip at 150 mEq in 1L D5W at 100 ml/hr, discontinued after 2 hours. 2. 100 mEq sodium bicarbonate IV x1. 3. Trend labs Hyponatremia - Sodium 128 on presentation, consistent with known history of chronic hyponatremia. Plan: 1. Daily BMP Rib Fractures - Multiple old-appearing rib fractures (left 1-7) noted on CT chest, likely acute from CPR. Family did not prior history of rib fracture after a fall last year Plan: 1. Pain control with acetaminophen and lidocaine patches. 2. Incentive spirometry to prevent atelectasis and pneumonia. Lung Cancer - History of stage IB ([id number]) squamous cell carcinoma of the left lower lobe, treated with radiation completed in 07/1998, currently on surveillance with CT scans every 6 months. Plan: 1. Continue surveillance CT scans as scheduled, next due in 10/2024. 2. Oncology follow-up to assess for signs of recurrence or progression. Discussed code status with patient and her next of kin ( Eldest daughter at bedside ) as well as nurse. Patient requested DNR/Limited resusitation. PDMP PDMP Reviewed: Not Reviewed Attestations 2 Medical Necessity Statement*: More than 2 midnights anticipated for septic shock management Coding Level of Care Code Acute Code for g Fwd Diagnoses Hypotension I95.9 Cardiac arrest I46.9 Hyponatremia E87.1 Lactic acidosis E87.20 Malignant neoplasm of lower lobe of right lung C34.31 Laterality: right Sepsis A41.9 Lupus (systemic lupus erythematosus) M32.9 Acute metabolic encephalopathy G93.41 Hypothermia T68.XXXA Septic shock A41.9; R65.21 Non-STEMI (non-ST elevated myocardial infarction) I21.4
--- NOTE | 2024-10-03 12:58 | ECG_ITS ---
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 Measurements Intervals [place] Rate: 85 P: 66 [place]: 175 QRS: 38 QRSD: 76 T: 61 QT: 361 QTc: 431 Interpretive Statements SINUS RHYTHM LOW QRS VOLTAGE IN PRECORDIAL LEADS [QRS DEFLECTION < 1.0 mV IN CHEST LEADS] SEPTAL MYOCARDIAL INFARCTION , OF INDETERMINATE AGE [40+ ms Q WAVE IN V1/V2] Compared to ECG 10/03/2024 09:01:03 Low QRS voltage now present Myocardial infarct finding now present Electronically Signed On 10-06-2024 19:15:30 CDT by Jcarlos Winters M.D. [email or web address] [id number]
--- NOTE | 2024-10-03 13:33 | P.CONIM_ITS ---
<Statement entered by Edward Sanchez MD - 10/03/24 18:43> Patient was evaluated and cared for in conjunction with an advanced practice practitioner. I personally examined the patient and reviewed the chart and all pertinent data including imaging, telemetry, and laboratory results. I discussed the patient in detail with the advanced practice practitioner. Please see their note for complete H&P testing result and agreed upon plan of care for the patient. 79-year-old female presented with hypotension syncope status post CPR for questionable PEA arrest and bradycardia. When I saw the patient she was talking to me in full sentences, she was not bare minimum of Levophed blood pressure was stable and more than 65 MAP. She denies any chest pain except from broken ribs upon deep inspiration. Twelve-lead EKG was not suggestive of acute coronary syndrome, troponin is bare minimum elevated possible secondary to CPR. Patient denies prior history of coronary artery disease or any chest pain. GENERAL: Patient is alert, awake and oriented x3. HEART: Regular S1 and S2. No murmur, rub or gallop. LUNGS: Clear to auscultate bilaterally. CENTRAL NERVOUS SYSTEM: Grossly nonfocal. EXTREMITIES: Lower extremities with out edema bilaterally. Assessment and plan Shock most likely noncardiogenic and possible sepsis continue IV Levophed and antibiotics if indicated Echocardiogram to assess LV Trend troponin most likely related elevation is secondary to sleep Overall it appeared to me that this is now a cardiac event we will continue to monitor at this point no need to anticoagulate. Providers/Reason For Consult 2 Consulting Physician/Specialty*: Edward Sanchez MD Reason for Consult*: Cardiac arrest requiring CPR Requesting Physician: Dr. Vazquez Attending Physician: Ronda Burks Primary Care Provider: Dagmar Santos DO History of Present Illness History of Present Illness Maddy Trevino is a 79 year old female with a history of COPD, hypertension, lupus, current every day smoker, no known cardiac history, who came into the ER via EMS after being found unresponsive in her home requiring CPR. The family states that she was non responsive, and they could not tell if the patient had a pulse or not, so they called 911. EMS arrived and reported that she was pulseless. CP was started. She recieved epinephrine. She was requiring an epi drip and high doses of levophed, but this was nearly completely weaned off. Patient denies any true chest pain, but states she has rib pain and side pain. She has multiple rib fractures seen on CT chest abdomen/pelvis. Current BP is 147/99 and pulse is 91. EKG with no acute ST elevation or T wave abnormalities. Troponin was 28-45.51-52.25 with positive delta. She has had a recent passing of her . When she came in, her lactic acid was 7.4. WBC was 14.85 with a left shift. Review of Systems 2 Narrative: Consitutional: denies fever, chills, body aches, or changes in appetite, denies abnormal weight loss Eyes: Denies changes in vision Card: Denies chest pain, palpitations, irregular heart rhythm, edema, syncope, shortness of breath, orthopnea Resp: Denies shortness of breath, denies hemoptysis, denies cough GI: denies abdominal pain, denies nausea or voimting, denies blood in stool : denies blood in urine, denies dysuria Musc: reports bilateral rib and side pain Skin: Denies rash, lesions, or wounds, denies changes to skin color Neuro: Denies nubmness in extremities, h/a, s/s of stroke Bird: Denies easy bruiding/bleeding Medications/Allergies Home Medications ?Medication ?Instructions ?Recorded ?Confirmed ?Last Taken ?Type alprazolam 0.5 mg tablet (Xanax) 0.5 mg PO BEDTIME 10/03/24 10/13/22 History carvedilol 6.25 mg tablet 6.25 mg PO BID 09/08/2209/2310/02/24 History methocarbamol 750 mg tablet 750 mg PO TID 09/08/2206/1910/13/22 History montelukast 10 mg tablet 10 mg PO DAILY 09/08/2209/2310/02/24 History lansoprazole 30 mg capsule,delayed 30 mg PO DAILY 09/2410/03/24 10/02/24 History release (Prevacid) belimumab 200 mg/mL subcutaneous 200 mg SUBCUT Q7D 06/1910/03/24 09/28/24 History auto-injector (Benlysta) hydrocodone 5 mg-acetaminophen 325 1 - 2 tab PO .Q4-6H PRN pain 10/03/24 10/03/24 Unknown History mg tablet latanoprost 0.005 % eye drops 1 drp ophthalmic (eye) B EDTIME 10/03/24 10/03/24 10/01/24 History olmesartan 20 mg tablet 20 mg PO DAILY 10/03/2409/2310/02/24 History Allergies Allergy/AdvReac Type Severity Reaction Status Date / Time vigabatrin (From Sabril) Allergy Severe ALGY-Anaphy Verified 09/29/24 08:18 laxis latex Allergy ALGY-Hives Verified 09/29/24 08:18 Penicillins Allergy ALGY-Rash Verified 09/29/24 08:18 Sulfa (Sulfonamide Allergy ALGY-Anaphy Verified 09/29/24 08:18 Antibiotics) laxis Current Medications Generic Name Dose Route Start Last Admin Trade Name Freq PRN Reason Stop Dose Admin Enoxaparin Sodium 70 mg 10/03/24 06:30 10/03/24 07:52 Enoxaparin 80 Mg/0.8 Ml Syringe SUBCUT 70 mg Q12H SHARRI Administration Clindamycin HCl/Dextrose 900 mg in 50 mls @ 100 mls/hr 10/03/24 05:00 10/03/24 06:21 Cleocin IV Infused Q8H SHARRI Infusion Protocol Sodium Chloride 1,000 mls @ 100 mls/hr 10/03/24 06:30 10/03/24 07:58 Sodium Chloride 0.9% IV 100 mls/hr .Q10H SHARRI Administration Aztreonam 2,000 mg/ Sodium 100 mls @ 200 mls/hr 10/03/24 09:00 10/03/24 12:26 Chloride IV Infused Q12H SHARRI Infusion Morphine Sulfate 2 mg 10/03/24 06:57 10/03/24 10:37 Morphine 4 Mg/Ml Sdv 1 Ml IVP 2 mg Q4H PRN Administration SEVERE PAIN Ondansetron HCl 4 mg 10/03/24 03:38 10/03/24 12:34 Ondansetron 2 Mg/Ml Sdv 2 Ml IVP 4 mg Q6H PRN Administration NAUSEA AND VOMITING Pantoprazole Sodium 40 mg 10/03/24 09:00 10/03/24 10:41 Pantoprazole 40 Mg Sdv IVP 40 mg BID SHARRI Administration PFSH Acute 2 PFSH: Medical History COPD (chronic obstructive pulmonary disease) Hypertension Lupus Spinal stenosis Surgical History Hx of appendectomy Family History Sister Lupus Social History Smoking and tobacco/nicotine status: current every day tobacco/nicotine user Second hand smoke exposure: No Alcohol intake: current Substance/Drug Use: never Caregiver/support person: No Lives independently: Yes Household members: spouse Housing: House Marital status: Number of children: 2 Number of grandchildren: 2 service: No Current occupational status: retired Current occupational exposures/hazards: No Pets and animals: Yes Do you think of yourself as: Straight/Heterosexual Current gender identity: Female Special edy needs: No Vitals/I&O/Wt Last Vital Signs Temp 97.7 F 10/03/24 08:46 Pulse 91 10/03/24 12:38 Resp 26 H 10/03/24 12:38 BP 147/99 10/03/24 12:38 Pulse Ox 95 10/03/24 12:38 O2 Del Method Nasal Cannula 10/03/24 12:38 O2 Flow Rate 2 10/03/24 12:38 10/02/24 10/03/24 10/03/24 22:59 06:59 14:59 Intake Total 1532.00 / 1532.00 1288.035 / 1288.035 Output Total 1600 / 1600 Balance 1532.00 / 1532.00 -311.965 / -311.965 Weight last 48 hrs Weight 145 lb Physical Exam 2 Narrative: General: No apparent distress, healthy appearing, well nourished HENMT: normoceophalic Respiratory: Normal respiratory effort, clear to auscultation bilaterally throughout all lung masters, no use of accessory muscles Cardio: No JVD, regular rate, regular rhythm, S1 S2 normal, no murmurs, peripheral pulses 2+ radial palpated bilaterally Extremities: Full ROM, normal, normal capillary refill, no cyanosis or edema Neuro: Alert and oriented x4, no focal motor deficits Psych: Affect normal, denies suicidal ideation, mental status grossly normal Skin: No rashes or lesions noted, no wounds Urinary Catheter Management: Rogers: Cath Placed During This Visit: yes Reason for Continuing Indwelling Catheter: Accurate Measurement of Urinary Output in Critically Ill Patients Urinary Catheter Date of Insertion: 10/03/24 Urinary Catheter Time of Insertion: : Data 10/03/24 03:20 10/03/24 11:17 Micro: Microbiology 10/03/24 04:30 Blood Culture - Preliminary Blood SPECIMEN COLLECTED 10/03/24 04:30 Blood Culture - Preliminary Blood SPECIMEN COLLECTED A&P Assessment and plan (1) Cardiac arrest: (2) Hypotension: (3) Non-STEMI (non-ST elevated myocardial infarction): (4) Sepsis: Plan At this time, patient is without acute changes on her EKG. Denies chest pain. Troponins are positive. It is not likely that this incident is cardiac related, but we will investigate this. Differentials could include but are not limited due hypotension caused by sepsis, Takotsubo, or underlying coronary artery disease. To better evaluate this, we will get a limited echo to evaluate LV function. Further recommendations to follow. Thank you for allowing us to care for this very pleasant 79 year old female. PDMP PDMP Reviewed: Not Reviewed Consult Attestations 2 Medical Necessity Statement: Deferred to primary. Coding Level of Care Code Acute Code for [facility] Fwd Diagnoses Cardiac arrest I46.9 Hypotension I95.9 Non-STEMI (non-ST elevated myocardial infarction) I21.4 Sepsis A41.9
--- NOTE | 2024-10-03 13:40 | USCV_ITS ---
Uriel Maddy Age: 79 Gender: F : 1945 Exam Date: 10/03/2024 14:42 Ordering Phys: Joanne Masterson NP Technologist: Exam Location: [facility] [place] Indication: cp BP: 139 / 74 HR: Rhythm: Sinus Technical Quality: Adequate MEASUREMENTS (Male / Female) Normal Values 2D ECHO LV Diastolic Diameter PLAX 3.0 cm 4.2 - 5.9 / 3.9 - 5.3 cm IVS Diastolic Thickness 1.2 cm 0.6 - 1.0 / 0.6 - 0.9 cm IVS Systolic Thickness 1.8 cm LVPW Diastolic Thickness 1.0 cm 0.6 - 1.0 / 0.6 - 0.9 cm LVPW Systolic Thickness 1.3 cm LVOT Diameter 1.9 cm LV Ejection Fraction 2D Teich 61.9 % LV Ejection Fraction MOD 4C 57.0 % LV Ejection Fraction MOD 2C 60.7 % LV Ejection Fraction 2C AL 61.9 % LA Diameter 3.0 cm RA Systolic Volume 4C AL 27.5 ml RA Systolic Volume 4C MOD 26.4 ml Aorta at Sinotubular Diameter 2.3 cm M-MODE LA Ao Ratio MM 1.3 AV Cusp Separation MM 1.7 cm FINDINGS Left Ventricle Normal left ventricular size, systolic function and wall thickness, with no regional wall motion abnormalities. Left ventricular ejection fraction is estimated at 60 %. Right Ventricle Right Atrium Left Atrium Mitral Valve Aortic Valve Tricuspid Valve Pulmonic Valve Pericardium Aorta IVC CONCLUSIONS Limited echocardiogram Normal left ventricular size, systolic function and wall thickness, with no regional wall motion abnormalities. Left ventricular ejection fraction is estimated at 60 %. There is no pericardial effusion. Right atrial pressure is around 5 mm of mercury. Edward Sanchez MD (Electronically Signed) Final Date: 03 October 2024 17:46 S
[2024-10-03] MEDS: clindamycin 900 MG/50 ML PREMIX 50 MG IV ×2 (13:48→20:43)
[2024-10-03 13:53] LABS: Lactic Acid level (Lactate) 2.1 mmol/L (0.5-2.2)
[2024-10-03 15:21] LABS: Sodium 128 mmol/L (136-145)
--- NOTE | 2024-10-03 16:15 | PC.NURSE ---
this nurse assumed pt care at 1615 from Emily CARBALLO.
[2024-10-03 19:44] LABS: Sodium 128 mmol/L (136-145)
[2024-10-03] MEDS: HYDROmorphone 0.5 MG/0.5 ML INJ 0.4 MG IVP (21:29)
[2024-10-03 23:24] LABS: Sodium 128 mmol/L (136-145)
[2024-10-04] VITALS (8 sets, daily range): BP systolic 134–162; BP diastolic 68–84; PULSE 85–97; RESP 16–23; TEMP 36.6; O2SAT 92–100
[2024-10-04 00:56] LABS: Bacillus cereus group Not Detected (NOT DETECT); Bacillus subtillis group Not Detected (NOT DETECT); Corynebacterium Not Detected (NOT DETECT); Cutibacterium acnes (P.acnes) Not Detected (NOT DETECT); Enterococcus Not Detected (NOT DETECT); Enterococcus faecalis Not Detected (NOT DETECT); Enterococcus faecium Not Detected (NOT DETECT); Lactobacillus species Not Detected (NOT DETECT); Listeria Not Detected (NOT DETECT); Listeria monocytogenes Not Detected (NOT DETECT); Micrococcus Not Detected (NOT DETECT); Pan Candida Not Detected (NOT DETECT); Pan Gram-Negative Not Detected (NOT DETECT); Staphylococcus epidermidis Detected (NOT DETECT); Staphylococcus lugdunensis Not Detected (NOT DETECT); Staphylococcus species Detected (NOT DETECT); Streptococcus agalactiae Not Detected (NOT DETECT); Streptococcus anginosus group Not Detected (NOT DETECT); Streptococcus pneumoniae Not Detected (NOT DETECT); Streptococcus pyogenes Not Detected (NOT DETECT); Streptococcus species Not Detected (NOT DETECT); mecA Not Detected (NOT DETECT); mecC Not Detected (NOT DETECT)
[2024-10-04] MEDS: linezolid premix 600 MG/300 ML PREMIX 300 MG IV ×2 (03:22→15:03)
[2024-10-04] MEDS: sodium chloride 0.9% 1,000 ML 100 ML IV ×3 (03:23→23:01)
[2024-10-04 04:36] LABS: ABG PCO2 44.9 mmHg (35-45); ABG PH Result 7.42 (7.35-7.45); Arterial Blood Gas Hematocrit 30.6 % (37-47); Base Excess ABG 3.9 mmol/L (-2.0-2.0); Blood Gas Operator Identificat jlb; Blood Gas Sample Site Brachial, right; Blood Gas Sample Type Arterial; Oxygen Device NC
[2024-10-04] MEDS: clindamycin 900 MG/50 ML PREMIX 100 MG IV ×2 (05:18→14:26)
[2024-10-04] MEDS: enoxaparin 80 mg/0.8 mL Syringe 70 MG SUBCUT ×2 (05:18→17:02)
[2024-10-04 06:02] LABS: Basophils % 0.4 %; Eosinophils # 0.1 10^3/uL (0.0-0.8); Eosinophils % 0.5 %; Hematocrit 29.3 % (36-47); Lymphocytes # 0.9 10^3/uL (0.8-4.8); Lymphocytes % 8.3 %; Mean Corpuscular HGB Conc 33.4 g/dL (30-55); Mean Corpuscular Hemoglobin 33.4 pg (27-33); Mean Platelet Volume 8.1 fL (7.4-10.4); Monocytes % 9.4 %; Neutrophils % 80.9 %; Nucleated Red Blood Cells % 0 %; Platelet Count 189 10^3/cmm (157-399); Red Blood Count 2.93 10^6/uL (3.85-5.65); White Blood Count 11.11 10^3/uL (3.29-11.43)
[2024-10-04 06:24] LABS: Alanine Aminotransferase 28 U/L (0-33); Albumin Level 3.1 g/dL (3.5-5.2); Alkaline Phosphatase 83 U/L (35-105); Anion Gap 12.8 (5-19); Aspartate Amino Transferase 36 U/L (0-32); Blood Urea Nitrogen 10 mg/dL (8-23); Carbon Dioxide 26 mmol/L (22-29); Chloride 94 mmol/L (98-107); Globulin 2.3 g/dL (1.3-4.6); Glucose 114 mg/dL (65-115); Osmolality Calculated 268 mOsm/kg (285-295); Potassium 3.8 mmol/L (3.5-5.1); Sodium 129 mmol/L (136-145); Total Bilirubin 0.5 mg/dL (0.15-1.2); Total Protein 5.4 g/dL (6.6-8.7)
[2024-10-04] MEDS: HYDROmorphone 0.5 MG/0.5 ML INJ 0.4 MG IVP ×3 (07:42→20:48)
[2024-10-04] MEDS: clopidogrel 75 mg Tablet PO (07:43)
[2024-10-04] MEDS: aspirin 81 mg EC Tablet PO (07:43)
[2024-10-04] MEDS: pantoprazole 40 mg SDV IVP ×2 (07:43→17:02)
--- NOTE | 2024-10-04 08:48 | PC.CHAP ---
Pastoral Care Encounter/Spiritual Assessment Type of Contact [] Declined ec teacher visit [] Patient/Family/Request visit [] Outpatient visit [] Follow-up visit [] Physician referral [] Code/Alert [x] Routine visit [] Staff referral [] Actively dying [] Patient sleeping [x] Family support [] [] Out of room [] Palliative care [] [] Receiving care in room [] Pre-surgical visit [] Trauma [] Long length of stay [] ICU visit [] Other: Relational/Emotional Strength [x] Patient feels connected with others/family/visitors/staff [] Distress [] Loneliness/isolation [] Abandonment Spirituality of Patient [x] Person of Odalys [] Attends Restorationism of their Odalys [x] Believes in Prayer [] Reads Bible or Presybeterian materials [] There are Spiritual issues to be addressed Steam Hand Interventions [x] Prayer [] Active listening [x] Non-anxious presence [x] Spiritual/emotional support [] Crisis/trauma care [] Spiritual counseling [] Bereavement support [] Provided bereavement packet [] Provided Bible/devotional materials [] Provided toy/stuffed animal, coloring book to patient or family member [] Provided Communion [] Anointing/[place] [] Salvation [x] Completed spiritual assessment [] Other: Impact on Illness or Injury [] Angry [] Fearful [] Anxious [] Often cries [] Exhaustion [] Unable to work [] Unable to attend pentecostal [] Unable to walk/stand [] Unable to read [] Unable to drive [] Unable to eat/drink [] Unable to sleep [] Unable to be with family [] Patient intubated [] Other: Summary Time spent with patient 5 min
[2024-10-04] MEDS: aztreonam 2,000 MG in sodium chloride 0.9% (plus) 100 ML 200 MG IV ×2 (10:03→20:48)
[2024-10-04] MEDS: morphine 4 mg/mL SDV 1 mL 2 MG IVP ×3 (10:40→23:27)
[2024-10-04] MEDS: ipratropium-albuterol 3 mL Neb INHALATION (15:36)
[2024-10-04] MEDS: ondansetron 2 mg/ML SDV 2 mL 4 MG IVP ×2 (15:59→21:57)
--- NOTE | 2024-10-04 16:23 | P.PN_ITS ---
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 Was seen in clinic on 09/09/2024 and started on a 10-day course of ciprofloxacin on 09/01/2024. Noted to be hypoxic during the visit, with oxygen saturation of 88%, and was placed on 2L oxygen via nasal cannula. Seen for a left shoulder cortisone injection due to chronic shoulder pain on 09/29/2024, which included Decadron, Cellog, Lidocaine, and Ropivacaine, without apparent complications. Presented to the emergency room earlier today after being found unresponsive. EMS arrived and initiated CPR. Family reported inability to wake her up. Received 6 minutes of CPR before return of spontaneous circulation (ROSC) and one dose of epinephrine. Initial evaluation in the ER revealed: - Laboratory Findings: WBC 14, hemoglobi n 12, hematocrit 37, platelet count 304, elevated D-dimer at 10.7, arterial blood gas showing pH 7.2, PCO2 43.7, PO2 493, bicarbonate 17, ionized calcium 1.1, sodium 128 (history of chronic hyponatremia), potassium 4.6, chloride 90, bicarbonate 20, BUN 12, creatinine 0.9, lactic acid initially 7.4, repeat 5.2, then 4.1 hours later, phosphorus 5.2, magnesium 2.5, AST 51, ALT 31, alkaline phosphatase 130, troponin T baseline 28, increasing to 45 at 120 minutes (delta 17.4), CRP negative at 3.0, TSH 2.5. Urinalysis showed 2+ protein, 3+ blood, 51-100 RBCs, negative leukocyte esterase and nitrites. Influenza, COVID-19, and RSV were negative. - Imaging Studies: Chest x-ray showing l inear scarring or atelectasis involving the left lower lobe, no definitive consolidation. Head CT showing mild to moderate small vessel disease, no acute intracranial process. CT chest/abdomen/pelvis showing emphysema in both lungs, nodular densities in the left lower lobe and lingula likely inflammatory, linear atelectasis or scarring in lung bases and right middle lobe, 3mm pleural-based nodule in the left middle lobe, 3mm nodule in the right upper lobe, bronchial wall thickening suggesting bronchitis or respiratory bronchitis, unremarkable heart without cardiomegaly or pericardial effusion, multiple old-appearing rib fractures (left 1-7) likely acute from CPR, fatty liver infiltration, and scattered chronic diverticula. On arrival, vital signs were blood pressure 104/66, heart rate 70, respiratory rate 17, oxygen saturation 92%. Alert and awake. Heart rate subsequently decreased to the 40s. Started on IV pressors, maxed out on Levophed and Epinephrine drip. Blood pressure increased to systolic 180s, at which point pressors were stopped. Met SIRS criteria for possible sepsis. 10/04/2024 Patient was Stable overnight. Did not have any further hypotensive episodes. She was transferred to the [facility]. She had some chest discomfort with deep inspiration related to were rib pain. Remained afebrile overnight. Denied respiratory distress. No cough. No nausea vomiting.Blood culture showed Staph coccus epidermidis in 1/2 blood cultures which was likely a contamination. Medications: Reviewed: Yes Vitals/I&O/Wt Last Vital Signs Temp 97.9 F 10/04/24 15:48 Pulse 90 10/04/24 15:48 Resp 22 H 10/04/24 15:48 BP 142/79 10/04/24 15:48 Pulse Ox 93 10/04/24 15:48 O2 Del Method Nasal Cannula 10/04/24 15:48 O2 Flow Rate 2 10/04/24 15:39 10/04/24 10/04/24 10/04/24 06:59 14:59 22:59 Intake Total 450 / 4238.035 340 / 340 1050 / 1390 Output Total 300 / 2600 Balance 150 / 1638.035 340 / 340 1050 / 1390 Weight last 48 hrs Weight 65.181 kg Weight 64.977 kg Weight 65.771 kg Physical Exam 2 Narrative: General: No apparent distress, healthy appearing, well nourished HENMT: normoceophalic Respiratory: Normal respiratory effort, clear to auscultation bilaterally throughout all lung masters, no use of accessory muscles Cardio: No JVD, regular rate, regular rhythm, S1 S2 normal, no murmurs, peripheral pulses 2+ radial palpated bilaterally Extremities: Full ROM, normal, normal capillary refill, no cyanosis or edema Neuro: Alert and oriented x4, no focal motor deficits Psych: Affect normal, denies suicidal ideation, mental status grossly normal Skin: No rashes or lesions noted, no wounds Urinary Catheter Management: Rogers: Cath Placed During This Visit: yes Reason for Continuing Indwelling Catheter: Accurate Measurement of Urinary Output in Critically Ill Patients Urinary Catheter Date of Insertion: 10/03/24 Urinary Catheter Time of Insertion: : Data 10/04/24 05:43 10/04/24 05:43 Micro: Microbiology 10/03/24 03:30 Urine Culture - Preliminary Urine,Clean Catch 10/03/24 04:30 Blood Culture - Preliminary Blood Staphylococcus epidermidis 10/03/24 04:30 Blood Culture - Preliminary Blood NEGATIVE TO DATE A&P Assessment and plan (1) Hypotension: (2) Cardiac arrest: (3) Hyponatremia: (4) Lactic acidosis: (5) Lung cancer, lower lobe: Qualifiers: Laterality: right Qualified Code(s): C34.31 - Malignant neoplasm of lower lobe, right bronchus or lung (6) Sepsis: (7) Lupus (systemic lupus erythematosus): (8) Acute metabolic encephalopathy: (9) Hypothermia: (10) Septic shock: (11) Non-STEMI (non-ST elevated myocardial infarction): Plan Cardiac Arrest - Presented after being found unresponsive at home, received 6 minutes of CPR by EMS before ROSC, requiring one dose of epinephrine. Etiology unclear at this time. - Discussed with Cardiology today did not feel this was likely cardiac event. Possibly hypertension due to Sepsis. - it is a Past belated the patient did not actually lose a pulse but may have just been hypotensive is unclear rhythm at the time of event. Plan: 1. Echocardiogram showed preserved ejection fraction. 2. Continue to monitor on telemetry. Unlikely to be Sepsis - Meets SIRS criteria with tachycardia, tachypnea, and leukocytosis. Possible infectious sources include pneumonia given lung findings on imaging, or urinary tract infection given urinalysis results. - Staphylococci epidermidis in 1/2 blood cultures. this is very likely a contamination. Plan: 1. Empiric broad-spectrum antibiotics with azactam 2g IV q12h (penicillin allergy), clindamycin 900mg IV q8h, and Zyvox 600mg IV q12h. 2. Repeat blood cultures in a.m. 3. Will deescalate antibiotics based on clinical course and also culture results. Acute Hypoxic Respiratory Failure on Chronic -Presented with hypoxia, requiring 2L oxygen via nasal cannula. Likely multifactorial given underlying COPD, possible pneumonia, and recent cardiac arrest. Plan: 1. Stable 2. Wean off oxygen Metabolic Acidosis - RESOLVED - Presented with pH 7.2, bicarbonate 17, and lactic acid 7.4, likely due to hypoperfusion from cardiac arrest and sepsis. Plan: 3. Trend labs Hyponatremia- Stable - Sodium 128 on presentation, consistent with known history of chronic hyponatremia. Plan: 1. Daily BMP Rib Fractures - Multiple old-appearing rib fractures (left 1-7) noted on CT chest, likely acute from CPR. Family did not prior history of rib fracture after a fall last year Plan: 1. Pain control with acetaminophen and lidocaine patches. 2. Incentive spirometry to prevent atelectasis and pneumonia. Lung Cancer - History of stage IB ([id number]) squamous cell carcinoma of the left lower lobe, treated with radiation completed in 07/1998, currently on surveillance with CT scans every 6 months. Plan: 1. Continue surveillance CT scans as scheduled, next due in 10/2024. 2. Oncology follow-up to assess for signs of recurrence or progression. PDMP PDMP Reviewed: Not Reviewed Attestations 2 Medical Necessity Statement*: More than 2 midnights anticipated for septic shock management Coding Level of Care Code Acute Code for [facility] Fwd Diagnoses Hypotension I95.9 Cardiac arrest I46.9 Hyponatremia E87.1 Lactic acidosis E87.20 Malignant neoplasm of lower lobe of right lung C34.31 Laterality: right Sepsis A41.9 Lupus (systemic lupus erythematosus) M32.9 Acute metabolic encephalopathy G93.41 Hypothermia T68.XXXA Septic shock A41.9; R65.21 Non-STEMI (non-ST elevated myocardial infarction) I21.4
--- NOTE | 2024-10-04 23:35 | ECG_ITS ---
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 Measurements Intervals [place] Rate: 93 P: 59 TN: 159 QRS: 14 QRSD: 90 T: 30 QT: 350 QTc: 437 Interpretive Statements SINUS RHYTHM LOW QRS VOLTAGE IN EXTREMITY LEADS [QRS DEFLECTION < 0.5 mV IN LIMB LEADS] Compared to ECG 10/03/2024 12:40:04 Myocardial infarct finding no longer present Electronically Signed On 10-06-2024 19:08:10 CDT by Jcarlos Winters M.D. [email or web address]
[2024-10-05] VITALS (13 sets, daily range): BP systolic 130–184; BP diastolic 84–117; PULSE 96–109; RESP 17–28; TEMP 36.4–37.1; O2SAT 90–98; BMI 27.7
[2024-10-05] MEDS: hyDRALAzine 20 mg/mL INJ 1 mL 10 MG IVP ×2 (00:27→19:55)
[2024-10-05] MEDS: HYDROmorphone 0.5 MG/0.5 ML INJ 0.4 MG IVP ×3 (02:31→19:55)
[2024-10-05] MEDS: linezolid premix 600 MG/300 ML PREMIX 300 MG IV ×2 (02:32→15:59)
--- NOTE | 2024-10-05 03:42 | PC.NURSE ---
Provider notified that Maddy Trevino bp is 184/111 monitor and 188/98 manually. She does not have anything prn for elevated BP. New orders placed for hydralazine 10mg ivp q4hr prn for BP > 180/100. Provider notified about patient pain. New orders for toradol 15mg ivp once.
[2024-10-05 03:49] LABS: Basophils % 0.3 %; Eosinophils % 0.2 %; Hematocrit 27.8 % (36-47); Lymphocytes # 0.8 10^3/uL (0.8-4.8); Lymphocytes % 7.2 %; Mean Corpuscular HGB Conc 32.7 g/dL (30-55); Mean Corpuscular Hemoglobin 33.2 pg (27-33); Mean Corpuscular Volume 101.5 fl (85-98); Mean Platelet Volume 8.5 fL (7.4-10.4); Monocytes % 8.8 %; Neutrophils # 9.62 10^3/uL (1.8-7.7); Neutrophils % 82.8 %; Nucleated Red Blood Cells % 0 %; Platelet Count 181 10^3/cmm (157-399); Red Blood Count 2.74 10^6/uL (3.85-5.65); Red Cell Distribution Width 12.2 % (12.1-15.1); White Blood Count 11.62 10^3/uL (3.29-11.43)
[2024-10-05 04:05] LABS: Alanine Aminotransferase 25 U/L (0-33); Albumin Level 3.2 g/dL (3.5-5.2); Alkaline Phosphatase 79 U/L (35-105); Blood Urea Nitrogen 10 mg/dL (8-23); Calcium 7.5 mg/dL (8.5-10.5); Carbon Dioxide 26 mmol/L (22-29); Chloride 90 mmol/L (98-107); Globulin 2.6 g/dL (1.3-4.6); Glucose 173 mg/dL (65-115); Osmolality Calculated 263 mOsm/kg (285-295); Sodium 125 mmol/L (136-145); Total Bilirubin 0.4 mg/dL (0.15-1.2); Total Protein 5.8 g/dL (6.6-8.7)
[2024-10-05 04:06] LABS: Aspartate Amino Transferase 34 U/L (0-32)
[2024-10-05] MEDS: ketorolac 30 mg/mL INJ 15 MG IVP (04:12)
[2024-10-05] MEDS: morphine 4 mg/mL SDV 1 mL 2 MG IVP ×2 (04:46→16:46)
[2024-10-05] MEDS: ondansetron 2 mg/ML SDV 2 mL 4 MG IVP ×2 (05:09→10:40)
--- NOTE | 2024-10-05 05:38 | PC.NURSE ---
Patient kruse bag tinged red, bruising on both arms, and platelets dropped from 300 on 10/[address] Lund notified and lovenox held.
[2024-10-05] MEDS: pantoprazole 40 mg SDV IVP (08:00)
[2024-10-05] MEDS: clopidogrel 75 mg Tablet PO (08:01)
[2024-10-05] MEDS: aspirin 81 mg EC Tablet PO (08:01)
[2024-10-05] MEDS: aztreonam 2,000 MG in sodium chloride 0.9% (plus) 100 ML 300 MG IV (10:40)
--- NOTE | 2024-10-05 11:15 | P.PN_ITS ---
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 The patient was found unresponsive by family, prompting EMS activation. Upon EMS arrival, she was noted to be pulseless and hypotensive, necessitating CPR for a duration of 3-6 minutes and administration of one dose of epinephrine. Upon arrival to the emergency department, she was alert and awake but remained hypotensive, requiring initiation of IV pressors which were quickly weaned. 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 Cardiology was consulted and an echocardiogram performed on 10/03/2024 demonstrated normal left ventricular size and systolic function, wall thickness, no regional wall motion abnormalities, ejection fraction of 60%, no pericardial effusion, and right atrial pressure of 5 mmHg. Cardiology did not feel this presentation was consistent with a cardiac event, despite an initial delta troponin of 17. Sepsis was also considered as a potential etiology of her presentation. Since admission, the patient's blood pressure has remained stable. She endorses feeling weak but denies any new complaints apart from chest discomfort with deep inspiration, attributed to rib fractures secondary to CPR as evidenced on CT imaging. 10/04/2024 Patient was Stable overnight. Did not have any further hypotensive episodes. She was transferred to the [facility]. She had some chest discomfort with deep inspiration related to were rib pain. Remained afebrile overnight. Denied respiratory distress. No cough. No nausea vomiting.Blood culture showed Staph coccus epidermidis in 1/2 blood cultures which was likely a contamination. 10/05/2024 No new clinical events. Remained afebrile. Has been hypetensive. Respiratory status is stable.Patient was concerned with bruising while on Lovenox. Was having intermittent episodes of nosebleed mainly due to oxygen. This is via nasal cannula. Medications: Reviewed: Yes Vitals/I&O/Wt Last Vital Signs Temp 97.5 F L 10/05/24 07:35 Pulse 101 H 10/05/24 07:35 Resp 20 H 10/05/24 07:35 BP 171/97 10/05/24 07:35 Pulse Ox 96 10/05/24 07:35 O2 Del Method Nasal Cannula 10/05/24 07:35 O2 Flow Rate 2 10/05/24 07:35 10/04/24 10/05/24 10/05/24 22:59 06:59 14:59 Intake Total 1689 / 2029 898.333 / 2928.333 120 / 120 Output Total 650 / 650 400 / 1050 Balance 1040 / 1380 498.333 / 1878.333 120 / 120 Weight last 48 hrs Weight 64.467 kg Weight 65.181 kg Weight 64.977 kg Physical Exam 2 Narrative: General: Alert and oriented, well-nourished, no acute distress. Lungs: Clear to auscultation, non-labored respiration. Heart: Normal rate, regular rhythm, no murmur. No LE edema. Abdomen: Soft, non-tender, non-distended, normal bowel sounds. Musculoskeletal: No finger cyanosis. Neurologic: No facial weakness. Psychiatric: Cooperative. Urinary Catheter Management: Rogers: Cath Placed During This Visit: yes Reason for Continuing Indwelling Catheter: Accurate Measurement of Urinary Output in Critically Ill Patients Urinary Catheter Date of Insertion: 10/03/24 Urinary Catheter Time of Insertion: 03: Data 10/06/24 03:30 10/06/24 03:30 Micro: Microbiology 10/03/24 03:30 Urine Culture - Final Urine,Clean Catch 10/03/24 04:30 Blood Culture - Preliminary Blood Staphylococcus epidermidis A&P Assessment and plan (1) Hypotension: (2) Cardiac arrest: (3) Hyponatremia: (4) Lactic acidosis: (5) Lung cancer, lower lobe: Qualifiers: Laterality: right Qualified Code(s): C34.31 - Malignant neoplasm of lower lobe, right bronchus or lung (6) Sepsis: (7) Lupus (systemic lupus erythematosus): (8) Acute metabolic encephalopathy: (9) Hypothermia: (10) Septic shock: (11) Non-STEMI (non-ST elevated myocardial infarction): Plan Cardiac Arrest - Presented after being found unresponsive at home, received 6 minutes of CPR by EMS before ROSC, requiring one dose of epinephrine. Etiology unclear at this time. - Discussed with Cardiology today did not feel this was likely cardiac event. Possibly hypertension due to Sepsis. - it is a Past belated the patient did not actually lose a pulse but may have just been hypotensive is unclear rhythm at the time of event. Plan: 1. Echocardiogram showed preserved ejection fraction. 2. Continue to monitor on telemetry. 3. Apprecaite cardiology input Suspected sepsis possibly due to pneumonia - Meets SIRS criteria with tachycardia, tachypnea, and leukocytosis. Possible infectious sources include pneumonia given lung findings on imaging, or urinary tract infection given urinalysis results. - Staphylococci epidermidis in 1/2 blood cultures. this is very likely a contamination. Plan: 1. Empiric broad-spectrum antibiotics with azactam 2g IV q12h (penicillin allergy), Discontinue clindamycin 900mg IV q8h and continue Zyvox 600mg IV q12h. 2. patient has been afebrile 3. Will deescalate antibiotics based on clinical course and also culture results. Acute Hypoxic Respiratory Failure on Chronic -Presented with hypoxia, requiring 2L oxygen via nasal cannula. Likely multifactorial given underlying COPD, possible pneumonia, and recent cardiac arrest. Plan: 1. Stable 2. Wean oxygen 3. Currently at baseline 4. home oxygen eval at discharge. Metabolic Acidosis - RESOLVED - Presented with pH 7.2, bicarbonate 17, and lactic acid 7.4, likely due to hypoperfusion from cardiac arrest and sepsis. Plan: 3. Trend labs Hyponatremia- Stable - Sodium 128 on presentation, consistent with known history of chronic hyponatremia. Plan: 1. Daily BMP 2. Placed on fluid restriction Rib Fractures - Multiple old-appearing rib fractures (left 1-7) noted on CT chest, likely acute from CPR. Family did not prior history of rib fracture after a fall last year Plan: 1. Pain control with acetaminophen and lidocaine patches. 2. Incentive spirometry to prevent atelectasis and pneumonia. Lung Cancer - History of stage IB ([id number]) squamous cell carcinoma of the left lower lobe, treated with radiation completed in 07/1998, currently on surveillance with CT scans every 6 months. Plan: 1. Continue surveillance CT scans as scheduled, next due in 10/2024. 2. Oncology follow-up to assess for signs of recurrence or progression. PDMP PDMP Reviewed: Not Reviewed Attestations 2 Medical Necessity Statement*: More than 2 midnights anticipated Coding Level of Care Code Acute Code for Chg Fwd Diagnoses Hypotension I95.9 Cardiac arrest I46.9 Hyponatremia E87.1 Lactic acidosis E87.20 Malignant neoplasm of lower lobe of right lung C34.31 Laterality: right Sepsis A41.9 Lupus (systemic lupus erythematosus) M32.9 Acute metabolic encephalopathy G93.41 Hypothermia T68.XXXA Septic shock A41.9; R65.21 Non-STEMI (non-ST elevated myocardial infarction) I21.4
[2024-10-05] MEDS: ipratropium-albuterol 3 mL Neb INHALATION ×3 (11:17→20:55)
[2024-10-05 16:01] LABS: MRSA PCR OZH (swab) NOT DETECTED (Not Detecte)
[2024-10-05] MEDS: carvedilol 6.25 mg Tablet PO (17:14)
--- NOTE | 2024-10-05 19:10 | PC.NURSE ---
Lovenox held because patient had hematuria, was oozing blood from her left arm, and had several large bruises around stomach. Patient did not want the 40 of lovenox.
[2024-10-05] MEDS: aztreonam 2,000 MG in sodium chloride 0.9% (plus) 100 ML 200 MG IV (21:21)
[2024-10-05] MEDS: FUROsemide 10 mg/mL SDV 2mL 20 MG IVP (21:22)
[2024-10-06] VITALS (11 sets, daily range): BP systolic 137–169; BP diastolic 60–98; PULSE 96–116; RESP 16–22; TEMP 36.4–37.1; O2SAT 94–99; BMI 28.3
[2024-10-06] MEDS: HYDROmorphone 0.5 MG/0.5 ML INJ 0.4 MG IVP ×4 (01:15→22:47)
[2024-10-06] MEDS: linezolid premix 600 MG/300 ML PREMIX 300 MG IV (03:38)
[2024-10-06 03:59] LABS: Basophils % 0.3 %; Eosinophils # 0.1 10^3/uL (0.0-0.8); Eosinophils % 0.6 %; Hematocrit 26.5 % (36-47); Lymphocytes # 1.3 10^3/uL (0.8-4.8); Lymphocytes % 10.9 %; Mean Corpuscular HGB Conc 33.6 g/dL (30-55); Mean Corpuscular Hemoglobin 33.6 pg (27-33); Mean Platelet Volume 8.5 fL (7.4-10.4); Monocytes # 1.3 10^3/uL (0.2-0.9); Neutrophils % 76.5 %; Nucleated Red Blood Cells % 0 %; Platelet Count 185 10^3/cmm (157-399); Red Blood Count 2.65 10^6/uL (3.85-5.65); Red Cell Distribution Width 12.1 % (12.1-15.1); White Blood Count 11.51 10^3/uL (3.29-11.43)
[2024-10-06 04:23] LABS: Alanine Aminotransferase 20 U/L (0-33); Albumin Level 3.3 g/dL (3.5-5.2); Alkaline Phosphatase 75 U/L (35-105); Anion Gap 13.9 (5-19); Aspartate Amino Transferase 25 U/L (0-32); Blood Urea Nitrogen 10 mg/dL (8-23); Carbon Dioxide 29 mmol/L (22-29); Chloride 88 mmol/L (98-107); Globulin 2.4 g/dL (1.3-4.6); Glucose 108 mg/dL (65-115); Osmolality Calculated 264 mOsm/kg (285-295); Potassium 3.9 mmol/L (3.5-5.1); Sodium 127 mmol/L (136-145); Total Bilirubin 0.5 mg/dL (0.15-1.2); Total Protein 5.7 g/dL (6.6-8.7)
[2024-10-06] MEDS: ondansetron 2 mg/ML SDV 2 mL 4 MG IVP ×3 (05:08→22:47)
--- NOTE | 2024-10-06 07:28 | PC.NURSE ---
Dr Burks present on the floor. Discussed with him patient'ts Lovenox due to decrease in Hgb and multiple bruising. Received verbal order to DC lovenox. Will keep SCD's at this time.
[2024-10-06] MEDS: pantoprazole DR 40 mg Tablet PO (07:48)
[2024-10-06] MEDS: carvedilol 6.25 mg Tablet PO ×2 (07:48→17:37)
[2024-10-06] MEDS: losartan 50 mg Tablet 25 MG PO (07:48)
[2024-10-06] MEDS: aspirin 81 mg EC Tablet PO (07:48)
[2024-10-06] MEDS: lanolin oint 7 gm 1 APPLIC TOPICAL (10:15)
--- NOTE | 2024-10-06 10:20 | PC.SOCIAL ---
IMM Update Pg 2 of IMM updated and reviewed; copy provided.
--- NOTE | 2024-10-06 12:30 | XR_ITS ---
WS: [id number] Portable AP upright chest, 10/06/2024 Clinical Data: increase SOB Comparison: Portable chest, 10/03/2024 Findings: There is a patchy opacity now in the right lower lobe. The patchy opacity in the left lower lobe and lingula has not changed. These opacities may represent pneumonia and/or atelectasis. No nodules, masses or effusions are seen. The heart is enlarged. The pulmonary vascularity is not increased. No pneumothorax is seen. The aortic arch and descending thoracic aorta show tortuosity. Monitor leads are on the chest wall. XR/XR chest 1V portable [id number] Impression: 1. Bilateral patchy lower lobe and lingular opacities which may represent acute pneumonia. 2. Atherosclerosis and cardiomegaly.
[2024-10-06] MEDS: ipratropium-albuterol 3 mL Neb INHALATION ×2 (12:33→21:57)
[2024-10-06] MEDS: FUROsemide 10 mg/mL SDV 2mL 20 MG IVP (13:36)
--- NOTE | 2024-10-06 13:52 | P.PN_ITS ---
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 The patient was found unresponsive by family, prompting EMS activation. Upon EMS arrival, she was noted to be pulseless and hypotensive, necessitating CPR for a duration of 3-6 minutes and administration of one dose of epinephrine. Upon arrival to the emergency department, she was alert and awake but remained hypotensive, requiring initiation of IV pressors which were quickly weaned. 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 Cardiology was consulted and an echocardiogram performed on 10/03/2024 demonstrated normal left ventricular size and systolic function, wall thickness, no regional wall motion abnormalities, ejection fraction of 60%, no pericardial effusion, and right atrial pressure of 5 mmHg. Cardiology did not feel this presentation was consistent with a cardiac event, despite an initial delta troponin of 17. Sepsis was also considered as a potential etiology of her presentation. Since admission, the patient's blood pressure has remained stable. She endorses feeling weak but denies any new complaints apart from chest discomfort with deep inspiration, attributed to rib fractures secondary to CPR as evidenced on CT imaging. 10/04/2024 Patient was Stable overnight. Did not have any further hypotensive episodes. She was transferred to the [facility]. She had some chest discomfort with deep inspiration related to were rib pain. Remained afebrile overnight. Denied respiratory distress. No cough. No nausea vomiting.Blood culture showed Staph coccus epidermidis in 1/2 blood cultures which was likely a contamination. 10/05/2024 No new clinical events. Remained afebrile. Has been hypetensive. Respiratory status is stable.Patient was concerned with bruising while on Lovenox. Was having intermittent episodes of nosebleed mainly due to oxygen. This is via nasal cannula. 10/06/2024 Overnight patient had episode of shortness of breath. Stated that every time she took a deep breath her chest wall with her due to her CPR and prior rib fractures. She was given a dose of Lasix last night however. Oxygen saturation today had not increased significantly. Denied fever, nausea, vomiting, abdominal pain. She did however again note slight bloody tingled nosebleed. Family at bedside. patient was accepted to SNF. Currently deciding if she would like to proceed with transferring there. She did again c/o dyspnea, chest xray, duoneb and lasix 20 mg iv x 1 ordered. Medications: Reviewed: Yes Vitals/I&O/Wt Last Vital Signs Temp 97.7 F 10/06/24 12:00 Pulse 100 10/06/24 12:34 Resp 18 10/06/24 12:34 BP 168/98 10/06/24 12:00 Pulse Ox 95 10/06/24 12:34 O2 Del Method Nasal Cannula 10/06/24 12:34 O2 Flow Rate 2 10/06/24 12:34 10/05/24 10/06/24 10/06/24 22:59 06:59 14:59 Intake Total 1400 / 1680 300 / 1980 Output Total 1550 / 1550 700 / 2250 Balance -150 / 130 -400 / -270 Weight last 48 hrs Weight 65.771 kg Weight 64.467 kg Physical Exam 2 Narrative: General: Alert and oriented,no acute distress. Lungs: decreased at bases. Heart: Normal rate, regular rhythm, no murmur. No LE edema. Abdomen: Soft, non-tender, non-distended, normal bowel sounds. Musculoskeletal: No finger cyanosis. Neurologic: No facial weakness. Psychiatric: Cooperative. Skin: [place] in both upper and lower extremities. Urinary Catheter Management: Rogers: Cath Placed During This Visit: yes Reason for Continuing Indwelling Catheter: Accurate Measurement of Urinary Output in Critically Ill Patients Urinary Catheter Date of Insertion: 10/03/24 Urinary Catheter Time of Insertion: : Data 10/06/24 03:30 10/06/24 03:30 Micro: Microbiology 10/03/24 03:30 Urine Culture - Final Urine,Clean Catch A&P Assessment and plan (1) Hypotension: (2) Cardiac arrest: (3) Hyponatremia: (4) Lactic acidosis: (5) Lung cancer, lower lobe: Qualifiers: Laterality: right Qualified Code(s): C34.31 - Malignant neoplasm of lower lobe, right bronchus or lung (6) Sepsis: (7) Lupus (systemic lupus erythematosus): (8) Acute metabolic encephalopathy: (9) Hypothermia: (10) Septic shock: (11) Non-STEMI (non-ST elevated myocardial infarction): Plan Cardiac Arrest - Presented after being found unresponsive at home, received 6 minutes of CPR by EMS before ROSC, requiring one dose of epinephrine. Etiology unclear at this time. - Discussed with Cardiology today did not feel this was likely cardiac event. Possibly hypertension due to Sepsis. - it is a Past belated the patient did not actually lose a pulse but may have just been hypotensive is unclear rhythm at the time of event. Plan: 1. Echocardiogram showed preserved ejection fraction. 2. Continue to monitor on telemetry. 3. Apprecaite cardiology input Suspected sepsis possibly due to bilateral pneumonia - Meets SIRS criteria with tachycardia, tachypnea, and leukocytosis. Possible infectious sources include pneumonia given lung findings on imaging, or urinary tract infection given urinalysis results. - Staphylococci epidermidis in 1/2 blood cultures. this is very likely a contamination. Plan: 1. Discontinue empiric broad-spectrum antibiotics with azactam 2g IV q12h (penicillin allergy), Discontinue clindamycin 900mg IV q8h and Zyvox 600mg IV q12h. 2. Chest xray today showed Bilateral pneumonia 3. Will start respiratory fq for now. 750 mg IV daily - if doing well will change to PO at discharge 4. Culture remain negative 5. Will need a repeat chest xray in 3-4 weeks Acute Hypoxic Respiratory Failure on Chronic -Presented with hypoxia, requiring 2L oxygen via nasal cannula. Likely multifactorial given underlying COPD, possible pneumonia, and recent cardiac arrest. Plan: 1. Stable 2. Wean oxygen 3. Currently at baseline 4. home oxygen eval at discharge. Metabolic Acidosis - RESOLVED - Presented with pH 7.2, bicarbonate 17, and lactic acid 7.4, likely due to hypoperfusion from cardiac arrest and sepsis. Plan: 3. Trend labs Hyponatremia- Stable - Sodium 128 on presentation, consistent with known history of chronic hyponatremia. Plan: 1. Daily BMP 2. Placed on fluid restriction Rib Fractures - Multiple old-appearing rib fractures (left 1-7) noted on CT chest, likely acute from CPR. Family did not prior history of rib fracture after a fall last year Plan: 1. Pain control with acetaminophen and lidocaine patches. 2. Incentive spirometry to prevent atelectasis and pneumonia. Lung Cancer - History of stage IB ([id number]) squamous cell carcinoma of the left lower lobe, treated with radiation completed in 07/1998, currently on surveillance with CT scans every 6 months. Plan: 1. Continue surveillance CT scans as scheduled, next due in 10/2024. 2. Oncology follow-up to assess for signs of recurrence or progression. Anticipate if patient continues to improve no fever or leukocytosis and oxygen requirements do not increase then she could potentially [facility] tomorrow on p.o. antibiotics. PDMP PDMP Reviewed: Not Reviewed Attestations 2 Medical Necessity Statement*: More than 2 midnights anticipated Coding Level of Care Code Acute Code for Chg Fwd Diagnoses Hypotension I95.9 Cardiac arrest I46.9 Hyponatremia E87.1 Lactic acidosis E87.20 Malignant neoplasm of lower lobe of right lung C34.31 Laterality: right Sepsis A41.9 Lupus (systemic lupus erythematosus) M32.9 Acute metabolic encephalopathy G93.41 Hypothermia T68.XXXA Septic shock A41.9; R65.21 Non-STEMI (non-ST elevated myocardial infarction) I21.4
[2024-10-06] MEDS: levofloxacin-dextrose 5 % 750 MG/150 ML PREMIX 100 MG IV (15:00)
[2024-10-06] MEDS: morphine 4 mg/mL SDV 1 mL 2 MG IVP (19:50)
[2024-10-07] VITALS (13 sets, daily range): BP systolic 104–178; BP diastolic 51–105; PULSE 92–113; RESP 15–27; TEMP 36.6–37; O2SAT 90–97
[2024-10-07 07:15] LABS: Basophils % 0.2 %; Eosinophils # 0.1 10^3/uL (0.0-0.8); Eosinophils % 0.6 %; Hematocrit 27.1 % (36-47); Lymphocytes # 1.1 10^3/uL (0.8-4.8); Lymphocytes % 10.2 %; Mean Corpuscular HGB Conc 33.9 g/dL (30-55); Mean Corpuscular Hemoglobin 33.7 pg (27-33); Mean Corpuscular Volume 99.3 fl (85-98); Mean Platelet Volume 8.3 fL (7.4-10.4); Monocytes # 1.3 10^3/uL (0.2-0.9); Monocytes % 12.5 %; Neutrophils # 7.99 10^3/uL (1.8-7.7); Neutrophils % 75.8 %; Nucleated Red Blood Cells % 0 %; Platelet Count 190 10^3/cmm (157-399); Red Blood Count 2.73 10^6/uL (3.85-5.65); White Blood Count 10.52 10^3/uL (3.29-11.43)
[2024-10-07] MEDS: aspirin 81 mg EC Tablet PO (09:13)
[2024-10-07] MEDS: losartan 50 mg Tablet 25 MG PO (09:13)
[2024-10-07] MEDS: carvedilol 6.25 mg Tablet PO (09:14)
[2024-10-07] MEDS: pantoprazole DR 40 mg Tablet PO (09:14)
[2024-10-07] MEDS: ondansetron 2 mg/ML SDV 2 mL 4 MG IVP (09:18)
[2024-10-07] MEDS: HYDROmorphone 0.5 MG/0.5 ML INJ 0.4 MG IVP (09:19)
[2024-10-07] MEDS: levalbuterol 1.25 mg/3 mL Neb INHALATION (14:15)
--- NOTE | 2024-10-07 14:52 | P.PN_ITS ---
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 The patient was found unresponsive by family, prompting EMS activation. Upon EMS arrival, she was noted to be pulseless and hypotensive, necessitating CPR for a duration of 3-6 minutes and administration of one dose of epinephrine. Upon arrival to the emergency department, she was alert and awake but remained hypotensive, requiring initiation of IV pressors which were quickly weaned. 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 Cardiology was consulted and an echocardiogram performed on 10/03/2024 demonstrated normal left ventricular size and systolic function, wall thickness, no regional wall motion abnormalities, ejection fraction of 60%, no pericardial effusion, and right atrial pressure of 5 mmHg. Cardiology did not feel this presentation was consistent with a cardiac event, despite an initial delta troponin of 17. Sepsis was also considered as a potential etiology of her presentation. Since admission, the patient's blood pressure has remained stable. She endorses feeling weak but denies any new complaints apart from chest discomfort with deep inspiration, attributed to rib fractures secondary to CPR as evidenced on CT imaging. 10/04/2024 Patient was Stable overnight. Did not have any further hypotensive episodes. She was transferred to the [facility]. She had some chest discomfort with deep inspiration related to were rib pain. Remained afebrile overnight. Denied respiratory distress. No cough. No nausea vomiting.Blood culture showed Staph coccus epidermidis in 1/2 blood cultures which was likely a contamination. 10/05/2024 No new clinical events. Remained afebrile. Has been hypetensive. Respiratory status is stable.Patient was concerned with bruising while on Lovenox. Was having intermittent episodes of nosebleed mainly due to oxygen. This is via nasal cannula. 10/06/2024 Overnight patient had episode of shortness of breath. Stated that every time she took a deep breath her chest wall with her due to her CPR and prior rib fractures. She was given a dose of Lasix last night however. Oxygen saturation today had not increased significantly. Denied fever, nausea, vomiting, abdominal pain. She did however again note slight bloody tingled nosebleed. Family at bedside. patient was accepted to SNF. Currently deciding if she would like to proceed with transferring there. She did again c/o dyspnea, chest xray, duoneb and lasix 20 mg iv x 1 ordered. 10/07/2024 Family at bedside, did not feel she was ready to go to [place] yet. She was feeling tired today. Would get tachy with exertion. Denied any CP. No reported fever or chills overnight. No nausea vomiting. Medications: Reviewed: Yes Vitals/I&O/Wt Last Vital Signs Temp 98.0 F 10/07/24 12:00 Pulse 107 H 10/07/24 14:17 Resp 20 H 10/07/24 14:17 BP 104/51 10/07/24 12:00 Pulse Ox 92 10/07/24 14:17 O2 Del Method Nasal Cannula 10/07/24 14:17 O2 Flow Rate 2 10/07/24 14:17 10/06/24 10/07/24 10/07/24 22:59 06:59 14:59 Intake Total 550 / 550 200 / 750 50 / 50 Output Total 1450 / 3150 800 / 3950 450 / 450 Balance -900 / -2600 -600 / -3200 -400 / -400 Weight last 48 hrs Weight 55.474 kg Weight 65.771 kg Physical Exam 2 Narrative: General: Alert and oriented,no acute distress. Lungs: decreased at bases. Heart: Normal rate, regular rhythm, no murmur. No LE edema. Abdomen: Soft, non-tender, non-distended, normal bowel sounds. Musculoskeletal: No finger cyanosis. Neurologic: No facial weakness. Psychiatric: Cooperative. Skin: Bruisig in both upper and lower extremities. Urinary Catheter Management: Rogers: Cath Placed During This Visit: yes Reason for Continuing Indwelling Catheter: Accurate Measurement of Urinary Output in Critically Ill Patients Urinary Catheter Date of Insertion: 10/03/24 Urinary Catheter Time of Insertion: : Data 10/07/24 07:05 10/06/24 03:30 A&P Assessment and plan (1) Hypotension: (2) Cardiac arrest: (3) Hyponatremia: (4) Lactic acidosis: (5) Lung cancer, lower lobe: Qualifiers: Laterality: right Qualified Code(s): C34.31 - Malignant neoplasm of lower lobe, right bronchus or lung (6) Sepsis: (7) Lupus (systemic lupus erythematosus): (8) Acute metabolic encephalopathy: (9) Hypothermia: (10) Septic shock: (11) Non-STEMI (non-ST elevated myocardial infarction): Plan Acute Hypoxic Respiratory Failure on Chronic / COPD exacerbation -Presented with hypoxia, requiring 2L oxygen via nasal cannula. Likely multifactorial given underlying COPD, possible pneumonia, and recent cardiac arrest.She has been having chest wall pain with deep inspiration due to CPR and rib fractures. This is likely contributing. Plan: 1. Patient is now starting to feel more short of breath with ambulation. Requiring 3 L of oxygen via nasal cannula today. Repeat chest x-ray has shown bilateral lower lobe changes suggestive of pneumonia. Currently is on antibiotics. 2. Will start patient on prednisone as well today. 3. Continue to wean oxygen Cardiac Arrest? - Presented after being found unresponsive at home, received 6 minutes of CPR by EMS before ROSC, requiring one dose of epinephrine. Etiology unclear at this time. - Discussed with Cardiology today did not feel this was likely cardiac event. Possibly hypertension due to Sepsis. - it is a Past belated the patient did not actually lose a pulse but may have just been hypotensive is unclear rhythm at the time of event. Plan: 1. Echocardiogram showed preserved ejection fraction. 2. Continue to monitor on telemetry. 3. Appreciate cardiology input Suspected sepsis possibly due to bilateral pneumonia - Meets SIRS criteria with tachycardia, tachypnea, and leukocytosis. Possible infectious sources include pneumonia given lung findings on imaging, or urinary tract infection given urinalysis results. - Staphylococci epidermidis in 1/2 blood cultures. this is very likely a contamination. Plan: 1. Discontinue empiric broad-spectrum antibiotics with azactam 2g IV q12h (penicillin allergy), Discontinue clindamycin 900mg IV q8h and Zyvox 600mg IV q12h. 2. Chest xray today showed Bilateral pneumonia 3. Continue Levaquin 750 daily 4. Culture remain negative 5. Will need a repeat chest xray in 3-4 weeks Metabolic Acidosis - RESOLVED - Presented with pH 7.2, bicarbonate 17, and lactic acid 7.4, likely due to hypoperfusion from cardiac arrest and sepsis. Plan: 3. Trend labs Hyponatremia- Stable - Sodium 128 on presentation, consistent with known history of chronic hyponatremia. Plan: 1. Daily BMP 2. Placed on fluid restriction Rib Fractures - Multiple old-appearing rib fractures (left 1-7) noted on CT chest, likely acute from CPR. Family did not prior history of rib fracture after a fall last year Plan: 1. Pain control with acetaminophen and lidocaine patches. 2. Incentive spirometry to prevent atelectasis and pneumonia. Lung Cancer - History of stage IB ([id number]) squamous cell carcinoma of the left lower lobe, treated with radiation completed in 07/1998, currently on surveillance with CT scans every 6 months. Plan: 1. Continue surveillance CT scans as scheduled, next due in 10/2024. 2. Oncology follow-up to assess for signs of recurrence or progression. PDMP PDMP Reviewed: Not Reviewed Attestations 2 Medical Necessity Statement*: Require hospitalization due to now increasing respiratory distress Coding Level of Care Code Acute Code for [facility] Fwd Diagnoses Hypotension I95.9 Cardiac arrest I46.9 Hyponatremia E87.1 Lactic acidosis E87.20 Malignant neoplasm of lower lobe of right lung C34.31 Laterality: right Sepsis A41.9 Lupus (systemic lupus erythematosus) M32.9 Acute metabolic encephalopathy G93.41 Hypothermia T68.XXXA Septic shock A41.9; R65.21 Non-STEMI (non-ST elevated myocardial infarction) I21.4
[2024-10-07] MEDS: levofloxacin-dextrose 5 % 750 MG/150 ML PREMIX 100 MG IV (16:26)
[2024-10-07] MEDS: predniSONE 20 mg Tablet 40 MG PO (17:31)
[2024-10-07] MEDS: benzonatate 100 mg Capsule PO (17:31)
[2024-10-07] MEDS: metoprolol tartrate 25 mg Tablet PO (20:19)
[2024-10-07] MEDS: hyDRALAzine 20 mg/mL INJ 1 mL 10 MG IVP (20:19)
[2024-10-07] MEDS: HYDROcodone-acetaminophen 5-325 mg Tablet 1 TAB PO (20:19)
[2024-10-08] VITALS (16 sets, daily range): BP systolic 129–184; BP diastolic 73–94; PULSE 87–120; RESP 16–23; TEMP 36.4–36.8; O2SAT 90–100
[2024-10-08] MEDS: HYDROcodone-acetaminophen 5-325 mg Tablet 1 TAB PO ×5 (00:29→20:24)
[2024-10-08] MEDS: hyDRALAzine 20 mg/mL INJ 1 mL 10 MG IVP (04:28)
[2024-10-08 06:11] LABS: Basophils % 0.1 %; Hematocrit 27.8 % (36-47); Lymphocytes # 0.6 10^3/uL (0.8-4.8); Mean Corpuscular HGB Conc 34.9 g/dL (30-55); Mean Corpuscular Hemoglobin 34.2 pg (27-33); Mean Corpuscular Volume 97.9 fl (85-98); Mean Platelet Volume 8.3 fL (7.4-10.4); Monocytes # 0.9 10^3/uL (0.2-0.9); Monocytes % 9.3 %; Neutrophils # 7.56 10^3/uL (1.8-7.7); Neutrophils % 82.8 %; Nucleated Red Blood Cells % 0 %; Platelet Count 213 10^3/cmm (157-399); Red Blood Count 2.84 10^6/uL (3.85-5.65); Red Cell Distribution Width 12.1 % (12.1-15.1); White Blood Count 9.13 10^3/uL (3.29-11.43)
[2024-10-08 06:27] LABS: Anion Gap 14.6 (5-19); Blood Urea Nitrogen 10 mg/dL (8-23); Calcium 8.4 mg/dL (8.5-10.5); Carbon Dioxide 27 mmol/L (22-29); Chloride 87 mmol/L (98-107); Glucose 126 mg/dL (65-115); Osmolality Calculated 261 mOsm/kg (285-295); Potassium 3.6 mmol/L (3.5-5.1); Sodium 125 mmol/L (136-145)
[2024-10-08] MEDS: aspirin 81 mg EC Tablet PO (09:11)
[2024-10-08] MEDS: losartan 50 mg Tablet 25 MG PO (09:11)
[2024-10-08] MEDS: pantoprazole DR 40 mg Tablet PO (09:11)
[2024-10-08] MEDS: predniSONE 20 mg Tablet 40 MG PO (09:11)
[2024-10-08] MEDS: metoprolol tartrate 25 mg Tablet PO ×2 (09:16→20:23)
--- NOTE | 2024-10-08 09:49 | P.PN_ITS ---
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 The patient was found unresponsive by family, prompting EMS activation. Upon EMS arrival, she was noted to be pulseless and hypotensive, necessitating CPR for a duration of 3-6 minutes and administration of one dose of epinephrine. Upon arrival to the emergency department, she was alert and awake but remained hypotensive, requiring initiation of IV pressors which were quickly weaned. 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 Cardiology was consulted and an echocardiogram performed on 10/03/2024 demonstrated normal left ventricular size and systolic function, wall thickness, no regional wall motion abnormalities, ejection fraction of 60%, no pericardial effusion, and right atrial pressure of 5 mmHg. Cardiology did not feel this presentation was consistent with a cardiac event, despite an initial delta troponin of 17. Sepsis was also considered as a potential etiology of her presentation. Since admission, the patient's blood pressure has remained stable. She endorses feeling weak but denies any new complaints apart from chest discomfort with deep inspiration, attributed to rib fractures secondary to CPR as evidenced on CT imaging. 10/04/2024 Patient was Stable overnight. Did not have any further hypotensive episodes. She was transferred to the [facility]. She had some chest discomfort with deep inspiration related to were rib pain. Remained afebrile overnight. Denied respiratory distress. No cough. No nausea vomiting.Blood culture showed Staph coccus epidermidis in 1/2 blood cultures which was likely a contamination. 10/05/2024 No new clinical events. Remained afebrile. Has been hypetensive. Respiratory status is stable.Patient was concerned with bruising while on Lovenox. Was having intermittent episodes of nosebleed mainly due to oxygen. This is via nasal cannula. 10/06/2024 Overnight patient had episode of shortness of breath. Stated that every time she took a deep breath her chest wall with her due to her CPR and prior rib fractures. She was given a dose of Lasix last night however. Oxygen saturation today had not increased significantly. Denied fever, nausea, vomiting, abdominal pain. She did however again note slight bloody tingled nosebleed. Family at bedside. patient was accepted to SNF. Currently deciding if she would like to proceed with transferring there. She did again c/o dyspnea, chest xray, duoneb and lasix 20 mg iv x 1 ordered. 10/07/2024 Family at bedside, did not feel she was ready to go to [place] yet. She was feeling tired today. Would get tachy with exertion. Denied any CP. No reported fever or chills overnight. No nausea vomiting. 10/08/2024: - Noted feeling short of breath and havi ng difficulty breathing, especially when eating. Reported a lot of coughing and gasping- overall this has improved since yesterday per family at bedside. - Has been on 2L oxygen as needed at [facility]. Was recently seen by doctors a few times in August for breathing difficulties and low oxygen levels. - Feel better today with neb treatments and after steroids Medications: Reviewed: Yes Vitals/I&O/Wt Last Vital Signs Temp 97.6 F 10/08/24 07:36 Pulse 120 H 10/08/24 09:09 Resp 16 10/08/24 09:09 BP 146/88 10/08/24 09:11 Pulse Ox 94 10/08/24 09:09 O2 Del Method Nasal Cannula 10/08/24 09:09 O2 Flow Rate 2 10/08/24 09:09 10/07/24 10/08/24 10/08/24 22:59 06:59 14:59 Intake Total 500 / 550 240 / 790 240 / 240 Output Total 845 / 1295 650 / 1945 Balance -345 / -745 -410 / -1155 240 / 240 Weight last 48 hrs Weight 55.701 kg Weight 55.474 kg Physical Exam 2 Narrative: General: Alert and oriented, sitting in chair, not in distress today Lungs: decreased at bases. non-labored, pursed lip breathing Heart: Normal rate, regular rhythm, no murmur. No LE edema. Abdomen: Soft, non-tender, non-distended, normal bowel sounds. Musculoskeletal: No finger cyanosis. Neurologic: No facial weakness. Psychiatric: Cooperative. Skin: Bruisig in both upper and lower extremities.- improving Urinary Catheter Management: Rogers: Cath Placed During This Visit: yes Reason for Continuing Indwelling Catheter: Accurate Measurement of Urinary Output in Critically Ill Patients Urinary Catheter Date of Insertion: 10/03/24 Urinary Catheter Time of Insertion: 03:25 Data 10/08/24 05:40 10/08/24 05:40 Micro: Microbiology 10/03/24 04:30 Blood Culture - Final Blood NO GROWTH AFTER 5 DAYS A&P Assessment and plan (1) Hypotension: (2) Cardiac arrest: (3) Hyponatremia: (4) Lactic acidosis: (5) Lung cancer, lower lobe: Qualifiers: Laterality: right Qualified Code(s): C34.31 - Malignant neoplasm of lower lobe, right bronchus or lung (6) Sepsis: (7) Lupus (systemic lupus erythematosus): (8) Acute metabolic encephalopathy: (9) Hypothermia: (10) Septic shock: (11) Non-STEMI (non-ST elevated myocardial infarction): Plan Acute Hypoxic Respiratory Failure on Chronic / COPD exacerbation / B/L pneumonia vs fluid -Presented with hypoxia, requiring 2L oxygen via nasal cannula. Likely multifactorial given underlying COPD, possible pneumonia, and recent cardiac arrest.She has been having chest wall pain with deep inspiration due to CPR and rib fractures. This is likely contributing. - Repeat chest xray showed - Bilateral Lower lobe pneunonia - Paient was supposed to be on 2l via NC all the time however was only using PRN at home Plan: 1. Patient is now starting to feel better today - She was started on Prednisone 40 mg daily yesterday - Continued on levaquin 750 mg daily - Was given lasix on the - Requiring 2 L of oxygen via nasal cannula today, decreasd from 3. Cardiac Arrest? - Presented after being found unresponsive at home, received 6 minutes of CPR by EMS before ROSC, requiring one dose of epinephrine. Etiology unclear at this time. - Discussed with Cardiology today did not feel this was likely cardiac event. Possibly hypertension due to Sepsis. - it is a Past belated the patient did not actually lose a pulse but may have just been hypotensive is unclear rhythm at the time of event. Plan: 1. Echocardiogram showed preserved ejection fraction. 2. Continue to monitor on telemetry. 3. Appreciate cardiology input Suspected sepsis possibly due to bilateral pneumonia - Meets SIRS criteria with tachycardia, tachypnea, and leukocytosis. Possible infectious sources include pneumonia given lung findings on imaging, or urinary tract infection given urinalysis results. - Staphylococci epidermidis in 1/3 blood cultures. this is very likely a contamination. - Afebrile Plan: 1. Discontinue empiric broad-spectrum antibiotics with azactam 2g IV q12h (penicillin allergy), Discontinue clindamycin 900mg IV q8h and Zyvox 600mg IV q12h.(this was started on admission ) 2. Chest xray showed Bilateral pneumonia 3. Continue Levaquin 750 daily - Plan for total 7 day course of abx 4. Culture remain negative 5. Will need a repeat chest xray in 3-4 weeks Hypertension - Also noted to be tachycardia Plan: 1. Was on coreg however changed to metoprolol 25 mg BID. HR improved. BP stable 2. Will continue to titrate as needed. Metabolic Acidosis - RESOLVED - Presented with pH 7.2, bicarbonate 17, and lactic acid 7.4, likely due to hypoperfusion from cardiac arrest and sepsis. Plan: 3. Trend labs Hyponatremia- Stable - Sodium 128 on presentation, consistent with known history of chronic hyponatremia. Plan: 1. Daily BMP 2. Placed on fluid restriction 3.Sodium tablets started Rib Fractures - Multiple old-appearing rib fractures (left 1-7) noted on CT chest, likely acute from CPR. Family did not prior history of rib fracture after a fall last year Plan: 1. Pain control with acetaminophen and lidocaine patches. 2. Incentive spirometry to prevent atelectasis and pneumonia. 3. Discontinue dilaudid - changed to norco Lung Cancer - History of stage IB ([id number]) squamous cell carcinoma of the left lower lobe, treated with radiation completed in 07/1998, currently on surveillance with CT scans every 6 months. Plan: 1. Continue surveillance CT scans as scheduled, next due in 10/2024. 2. Oncology follow-up to assess for signs of recurrence or progression. Anticiapate discharge to SNF tomorrow if continues to improve PDMP PDMP Reviewed: Not Reviewed Attestations 2 Medical Necessity Statement*: Require additional day hospitalization due to now increasing respiratory distress, tachycardia. Coding Level of Care Code Acute Code for [facility] Fwd Diagnoses Hypotension I95.9 Cardiac arrest I46.9 Hyponatremia E87.1 Lactic acidosis E87.20 Malignant neoplasm of lower lobe of right lung C34.31 Laterality: right Sepsis A41.9 Lupus (systemic lupus erythematosus) M32.9 Acute metabolic encephalopathy G93.41 Hypothermia T68.XXXA Septic shock A41.9; R65.21 Non-STEMI (non-ST elevated myocardial infarction) I21.4
[2024-10-08] MEDS: levalbuterol 1.25 mg/3 mL Neb INHALATION ×2 (13:28→19:47)
[2024-10-08] MEDS: levofloxacin-dextrose 5 % 750 MG/150 ML PREMIX 100 MG IV (16:34)
[2024-10-08] MEDS: sodium chloride 1 gm Tablet PO (16:35)
[2024-10-08] MEDS: ondansetron 2 mg/ML SDV 2 mL 4 MG IVP (18:24)
[2024-10-08] MEDS: ALPRAZolam 0.5 mg Tablet PO (20:24)
[2024-10-09] VITALS (10 sets, daily range): BP systolic 145–170; BP diastolic 67–96; PULSE 78–97; RESP 16–21; TEMP 36.4–37.1; O2SAT 90–100
[2024-10-09] MEDS: HYDROcodone-acetaminophen 5-325 mg Tablet 1 TAB PO ×4 (00:55→20:37)
[2024-10-09 06:06] LABS: Anion Gap 15.4 (5-19); Blood Urea Nitrogen 12 mg/dL (8-23); Calcium 8.4 mg/dL (8.5-10.5); Carbon Dioxide 26 mmol/L (22-29); Chloride 88 mmol/L (98-107); Glucose 102 mg/dL (65-115); Osmolality Calculated 262 mOsm/kg (285-295); Potassium 3.4 mmol/L (3.5-5.1); Sodium 126 mmol/L (136-145)
--- NOTE | 2024-10-09 07:30 | PC.NURSE ---
2009- Requesting patients home sleep medication alprazolam 0.[address] Kevon ferrara to give. 0643- Patient has potassium of 3.4 requesting replacements. Recieved orders for 40 meq PO potassium once.
[2024-10-09] MEDS: potassium chloride ER 20 mEq Tablet 40 MEQ PO (07:36)
[2024-10-09] MEDS: levalbuterol 1.25 mg/3 mL Neb INHALATION ×3 (07:48→21:02)
[2024-10-09] MEDS: aspirin 81 mg EC Tablet PO (08:24)
[2024-10-09] MEDS: predniSONE 20 mg Tablet 40 MG PO (08:25)
[2024-10-09] MEDS: pantoprazole DR 40 mg Tablet PO (08:25)
[2024-10-09] MEDS: metoprolol tartrate 25 mg Tablet PO ×2 (08:25→20:31)
[2024-10-09] MEDS: losartan 50 mg Tablet 25 MG PO (08:25)
[2024-10-09] MEDS: benzonatate 100 mg Capsule PO ×3 (11:33→20:37)
--- NOTE | 2024-10-09 11:43 | PC.SOCIAL ---
IMM Updated Updated pt on IMM. No questions voiced. Provided pt a copy. Initialed, dated, & timed copy in chart.
[2024-10-09] MEDS: levofloxacin-dextrose 5 % 750 MG/150 ML PREMIX 100 MG IV (14:27)
--- NOTE | 2024-10-09 14:54 | XRR_ITS ---
PROCEDURE INFORMATION: Exam: XR Chest Exam date and time: 10/09/2024 3:00 PM Age: 79 years old Clinical indication: Cough; HX of lung cancer; Additional info: Assess for pneumonia, multiple rib fractures , assess for interval pneumonia TECHNIQUE: Imaging protocol: Radiologic exam of the chest. Views: 1 view. COMPARISON: CR XR chest 1V portable [id number] 10/06/2024 11:51 AM FINDINGS: Tubes, catheters and devices: Monitor leads project over the thorax. Lungs: Increasing opacification of the left lower lobe and left retrocardiac region. Pulmonary vasculature is not distended. Persistent but mildly improved patchy right lower lobe opacity. Pleural spaces: Unremarkable. No pleural effusion. No pneumothorax. Heart/Mediastinum: Mild cardiomegaly, stable. Vasculature: Tortuous descending thoracic aorta. Bones/joints: Unremarkable. XR/XR chest 1V portable [id number] IMPRESSION: 1. Increasing left lower lobe and retrocardiac opacity, which may represent combination of focal consolidation and/or pleural effusion. 2. Mildly increased but persistent right lower lobe patchy opacity, which may represent pneumonia and/or atelectasis.
--- NOTE | 2024-10-09 14:59 | PM.PN ---
Subjective Subjective: Patient noted to have several bouts of coughing on exam today. States her ribs hurt whenever she tries to cough. Has not been using the incentive spirometer as frequently as needed. She thinks her coughing is worse today. Medications: Reviewed: Yes Vitals/I&O/Wt Last Vital Signs Temp 98.7 F 10/09/24 11:54 Pulse 88 10/09/24 14:00 Resp 18 10/09/24 14:00 BP 145/77 10/09/24 11:54 Pulse Ox 93 10/09/24 14:00 O2 Del Method Nasal Cannula 10/09/24 14:00 O2 Flow Rate 1 10/09/24 14:00 10/08/24 10/09/24 10/09/24 22:59 06:59 14:59 Intake Total 150 / 630 240 / 240 Output Total 650 / 650 200 / 850 Balance -500 / -20 -200 / -220 240 / 240 Weight last 48 hrs Weight 58.695 kg Weight 55.701 kg Physical Exam Narrative: General: Awake alert and oriented x 3. Noted to having multiple bouts of cough on exam. Looks very uncomfortable. HEENT: PERRLA, pupils bilaterally equal and reactive, pallors not present Chest: Normal vesicular breath sounds, no added sounds, equal good air entry bilaterally CVS: S1-S2 regular, no murmurs, no tachycardia, no gallops, no rubs Abdomen: Soft, nontender, no organomegaly, bowel sounds present Neuro: No focal deficits, no facial deformity, AO x3, power 5/5 in all limbs Urinary Catheter Management: Rogers: Cath Placed During This Visit: yes Reason for Continuing Indwelling Catheter: Accurate Measurement of Urinary Output in Critically Ill Patients Urinary Catheter Date of Insertion: 10/03/24 Urinary Catheter Time of Insertion: 03: Data 10/08/24 05:40 10/09/24 05:24 Micro: Microbiology 10/03/24 04:30 Blood Culture - Final Blood Staph capitis sub ureolyticus Staphylococcus epidermidis#2 A&P Assessment and plan (1) Hypotension: (2) Cardiac arrest: (3) Hyponatremia: (4) Lactic acidosis: (5) Lung cancer, lower lobe: Qualifiers: Laterality: right Qualified Code(s): C34.31 - Malignant neoplasm of lower lobe, right bronchus or lung (6) Sepsis: (7) Lupus (systemic lupus erythematosus): (8) Acute metabolic encephalopathy: (9) Hypothermia: (10) Septic shock: (11) Non-STEMI (non-ST elevated myocardial infarction): Plan Acute Hypoxic Respiratory Failure on Chronic / COPD exacerbation / B/L pneumonia vs fluid -Presented with hypoxia, requiring 2L oxygen via nasal cannula. Likely multifactorial given underlying COPD, possible pneumonia, and recent cardiac arrest.She has been having chest wall pain with deep inspiration due to CPR and rib fractures. This is likely contributing. - Repeat chest xray showed - Bilateral Lower lobe pneunonia - Paient was supposed to be on 2l via NC all the time however was only using PRN at home Plan: 1. Patient is now starting to feel better today - She was started on Prednisone 40 mg daily yesterday - Continued on levaquin 750 mg daily - Was given lasix on the - Requiring 2 L of oxygen via nasal cannula today, decreasd from 3. Cardiac Arrest? - Presented after being found unresponsive at home, received 6 minutes of CPR by EMS before ROSC, requiring one dose of epinephrine. Etiology unclear at this time. - Discussed with Cardiology today did not feel this was likely cardiac event. Possibly hypertension due to Sepsis. - it is a Past belated the patient did not actually lose a pulse but may have just been hypotensive is unclear rhythm at the time of event. Plan: 1. Echocardiogram showed preserved ejection fraction. 2. Continue to monitor on telemetry. 3. Appreciate cardiology input Suspected sepsis possibly due to bilateral pneumonia - Meets SIRS criteria with tachycardia, tachypnea, and leukocytosis. Possible infectious sources include pneumonia given lung findings on imaging, or urinary tract infection given urinalysis results. - Staphylococci epidermidis in 1/3 blood cultures. this is very likely a contamination. - Afebrile Plan: 1. Discontinue empiric broad-spectrum antibiotics with azactam 2g IV q12h (penicillin allergy), Discontinue clindamycin 900mg IV q8h and Zyvox 600mg IV q12h.(this was started on admission ) 2. Chest xray showed Bilateral pneumonia 3. Continue Levaquin 750 daily - Plan for total 7 day course of abx 4. Culture remain negative 5. Will need a repeat chest xray in 3-4 weeks Hypertension - Also noted to be tachycardia Plan: 1. Was on coreg however changed to metoprolol 25 mg BID. HR improved. BP stable 2. Will continue to titrate as needed. Metabolic Acidosis - RESOLVED - Presented with pH 7.2, bicarbonate 17, and lactic acid 7.4, likely due to hypoperfusion from cardiac arrest and sepsis. Plan: 3. Trend labs Hyponatremia- Stable - Sodium 128 on presentation, consistent with known history of chronic hyponatremia. Plan: 1. Daily BMP 2. Placed on fluid restriction 3.Sodium tablets started Rib Fractures - Multiple old-appearing rib fractures (left 1-7) noted on CT chest, likely acute from CPR. Family did not prior history of rib fracture after a fall last year Plan: 1. Pain control with acetaminophen and lidocaine patches. 2. Incentive spirometry to prevent atelectasis and pneumonia. 3. 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 Plan: 1. Continue surveillance CT scans as scheduled, next due in 10/2024. 2. Oncology follow-up to assess for signs of recurrence or progression. Anticiapate discharge to SNF tomorrow if continues to improve October 09, 2024 Patient is noted to be having significant bouts of cough. She looks extremely uncomfortable. Unable to catch breath while coughing. Complains of pain in her ribs on attempting to cough. Discussed with her the results of the CT chest which shows multiple rib fractures on the left side involving the left first second third fourth fifth and sixth and seventh ribs. These fractures are noted to be acute. There are old fractures on the right side sustained after a fall 1 year ago. Chest x-ray taken on October 06, 2024 shows bilateral patchy lower lobe opacities representing of acute pneumonia. Per personal interpretation left side appears to be much worse compared to the right side. Will repeat chest x-ray today given worsening cough. Continue levofloxacin 750 mg IV daily. Encourage incentive spirometer. Currently unable to perform the spirometer due to pain. Change hydrocodone APAP to scheduled every 6 hours. Add as needed morphine for breakthrough pain. Add lidocaine patch for local chest wall application daily over the left chest wall. If above measures fail to control the pain, may need to consider adding a fentanyl patch. Patient reports a history of allergy to codeine with tongue swelling therefore would not use this as a cough suppressant for now. Added scheduled Tessalon Perles and dextromethorphan for cough suppression.Add scheduled DuoNeb nebulization. PDMP PDMP Reviewed: Not Reviewed Attestations Medical Necessity Statement*: worsening cough today. Patient looks visibly uncomfortable and tachypneic. Add pain management and cough suppression as above. Coding Level of Care Code Acute Code for [facility] Fwd Diagnoses Hypotension I95.9 Cardiac arrest I46.9 Hyponatremia E87.1 Lactic acidosis E87.20 Malignant neoplasm of lower lobe of right lung C34.31 Laterality: right Sepsis A41.9 Lupus (systemic lupus erythematosus) M32.9 Acute metabolic encephalopathy G93.41 Hypothermia T68.XXXA Septic shock A41.9; R65.21 Non-STEMI (non-ST elevated myocardial infarction) I21.4
[2024-10-09] MEDS: lidocaine 5% Patch 1 PATCH TOPICAL (15:44)
[2024-10-09] MEDS: guaiFENesin-dextromethorphan UDC 10 mL PO ×2 (15:45→20:37)
[2024-10-09] MEDS: sodium chloride 1 gm Tablet PO (17:16)
[2024-10-09] MEDS: ALPRAZolam 0.5 mg Tablet PO (22:28)
[2024-10-10] VITALS (13 sets, daily range): BP systolic 101–167; BP diastolic 72–76; PULSE 64–92; RESP 14–25; TEMP 36.4–36.5; O2SAT 88–100
[2024-10-10] MEDS: morphine 4 mg/mL SDV 1 mL 2 MG IVP (00:26)
[2024-10-10] MEDS: guaiFENesin-dextromethorphan UDC 10 mL PO ×4 (02:25→20:49)
[2024-10-10] MEDS: HYDROcodone-acetaminophen 5-325 mg Tablet 1 TAB PO (02:25)
[2024-10-10] MEDS: ondansetron 2 mg/ML SDV 2 mL 4 MG IVP (02:28)
[2024-10-10] MEDS: oxyCODONE-APAP 5-325 mg Tablet 1 TAB PO ×4 (06:36→23:49)
[2024-10-10] MEDS: levalbuterol 1.25 mg/3 mL Neb INHALATION ×3 (07:49→20:57)
[2024-10-10 09:10] LABS: Basophils # 0.1 10^3/uL (0.0-0.1); Basophils % 0.3 %; Eosinophils % 0.1 %; Lymphocytes # 2.1 10^3/uL (0.8-4.8); Lymphocytes % 11.3 %; Mean Corpuscular HGB Conc 32.3 g/dL (30-55); Mean Corpuscular Hemoglobin 33.3 pg (27-33); Mean Corpuscular Volume 103.2 fl (85-98); Mean Platelet Volume 8.2 fL (7.4-10.4); Monocytes # 2.6 10^3/uL (0.2-0.9); Monocytes % 13.7 %; Neutrophils # 13.81 10^3/uL (1.8-7.7); Neutrophils % 73.1 %; Nucleated Red Blood Cells % 0.1 %; Platelet Count 274 10^3/cmm (157-399); Red Blood Count 3.39 10^6/uL (3.85-5.65); Red Cell Distribution Width 12.4 % (12.1-15.1); White Blood Count 18.88 10^3/uL (3.29-11.43)
[2024-10-10] MEDS: sodium chloride 1 gm Tablet PO ×2 (09:27→18:06)
[2024-10-10] MEDS: losartan 50 mg Tablet 25 MG PO (09:28)
[2024-10-10] MEDS: benzonatate 100 mg Capsule PO ×3 (09:28→20:49)
[2024-10-10] MEDS: pantoprazole DR 40 mg Tablet PO (09:28)
[2024-10-10] MEDS: sennosides-docusate Tablet 1 TAB PO ×2 (09:29→18:07)
[2024-10-10] MEDS: aspirin 81 mg EC Tablet PO (09:29)
[2024-10-10] MEDS: metoprolol tartrate 25 mg Tablet PO ×2 (09:29→20:49)
[2024-10-10] MEDS: lidocaine 5% Patch 1 PATCH TOPICAL (09:29)
[2024-10-10 09:31] LABS: Alanine Aminotransferase 16 U/L (0-33); Alkaline Phosphatase 85 U/L (35-105); Blood Urea Nitrogen 12 mg/dL (8-23); Calcium 8.8 mg/dL (8.5-10.5); Carbon Dioxide 26 mmol/L (22-29); Chloride 87 mmol/L (98-107); Globulin 2.1 g/dL (1.3-4.6); Glucose 96 mg/dL (65-115); Osmolality Calculated 266 mOsm/kg (285-295); Sodium 128 mmol/L (136-145); Total Bilirubin 0.6 mg/dL (0.15-1.2); Total Protein 6.1 g/dL (6.6-8.7)
--- NOTE | 2024-10-10 09:41 | P.PN_ITS ---
Subjective 2 Subjective: Pain is slightly better today the patient states she has a restless night. X- ray of the chest is showing worsening left-sided infiltrate. White blood cell count is up to 18,000 today. Medications: Reviewed: Yes Vitals/I&O/Wt Last Vital Signs Temp 97.7 F 10/10/24 08:00 Pulse 83 10/10/24 08:00 Resp 16 10/10/24 08:00 BP 167/74 10/10/24 08:00 Pulse Ox 96 10/10/24 08:00 O2 Del Method Nasal Cannula 10/10/24 08:00 O2 Flow Rate 1 10/10/24 08:00 10/09/24 10/10/24 10/10/24 22:59 06:59 14:59 Intake Total 270 / 510 100 / 610 Output Total 650 / 650 600 / 1250 Balance -380 / -140 -500 / -640 Weight last 48 hrs Weight 66.315 kg Weight 58.695 kg Physical Exam 2 Narrative: General: Awake alert and oriented x 3. Appears more comfortable compared to prior exam HEENT: PERRLA, pupils bilaterally equal and reactive, pallors not present Chest: Normal vesicular breath sounds, no added sounds, equal good air entry bilaterally CVS: S1-S2 regular, no murmurs, no tachycardia, no gallops, no rubs Abdomen: Soft, nontender, no organomegaly, bowel sounds present Neuro: No focal deficits, no facial deformity, AO x3, power 5/5 in all limbs Urinary Catheter Management: Rogers: Cath Placed During This Visit: yes Reason for Continuing Indwelling Catheter: Accurate Measurement of Urinary Output in Critically Ill Patients Urinary Catheter Date of Insertion: 10/03/24 Urinary Catheter Time of Insertion: 03:25 Data 10/10/24 08:36 10/10/24 08:36 Micro: Microbiology 10/03/24 04:30 Blood Culture - Final Blood Staph capitis sub ureolyticus Staphylococcus epidermidis#2 A&P Assessment and plan (1) Hypotension: (2) Cardiac arrest: (3) Hyponatremia: (4) Lactic acidosis: (5) Lung cancer, lower lobe: Qualifiers: Laterality: right Qualified Code(s): C34.31 - Malignant neoplasm of lower lobe, right bronchus or lung (6) Sepsis: (7) Lupus (systemic lupus erythematosus): (8) Acute metabolic encephalopathy: (9) Hypothermia: (10) Septic shock: (11) Non-STEMI (non-ST elevated myocardial infarction): Plan Acute Hypoxic Respiratory Failure on Chronic / COPD exacerbation / B/L pneumonia vs fluid -Presented with hypoxia, requiring 2L oxygen via nasal cannula. Likely multifactorial given underlying COPD, possible pneumonia, and recent cardiac arrest.She has been having chest wall pain with deep inspiration due to CPR and rib fractures. This is likely contributing. - Repeat chest xray showed - Bilateral Lower lobe pneunonia - Paient was supposed to be on 2l via NC all the time however was only using PRN at home Plan: 1. Patient is now starting to feel better today - She was started on Prednisone 40 mg daily yesterday - Continued on levaquin 750 mg daily - Was given lasix on the - Requiring 2 L of oxygen via nasal cannula today, decreasd from 3. Cardiac Arrest? - Presented after being found unresponsive at home, received 6 minutes of CPR by EMS before ROSC, requiring one dose of epinephrine. Etiology unclear at this time. - Discussed with Cardiology today did not feel this was likely cardiac event. Possibly hypertension due to Sepsis. - it is a Past belated the patient did not actually lose a pulse but may have just been hypotensive is unclear rhythm at the time of event. Plan: 1. Echocardiogram showed preserved ejection fraction. 2. Continue to monitor on telemetry. 3. Appreciate cardiology input Suspected sepsis possibly due to bilateral pneumonia - Meets SIRS criteria with tachycardia, tachypnea, and leukocytosis. Possible infectious sources include pneumonia given lung findings on imaging, or urinary tract infection given urinalysis results. - Staphylococci epidermidis in 1/3 blood cultures. this is very likely a contamination. - Afebrile Plan: 1. Discontinue empiric broad-spectrum antibiotics with azactam 2g IV q12h (penicillin allergy), Discontinue clindamycin 900mg IV q8h and Zyvox 600mg IV q12h.(this was started on admission ) 2. Chest xray showed Bilateral pneumonia 3. Continue Levaquin 750 daily - Plan for total 7 day course of abx 4. Culture remain negative 5. Will need a repeat chest xray in 3-4 weeks Hypertension - Also noted to be tachycardia Plan: 1. Was on coreg however changed to metoprolol 25 mg BID. HR improved. BP stable 2. Will continue to titrate as needed. Metabolic Acidosis - RESOLVED - Presented with pH 7.2, bicarbonate 17, and lactic acid 7.4, likely due to hypoperfusion from cardiac arrest and sepsis. Plan: 3. Trend labs Hyponatremia- Stable - Sodium 128 on presentation, consistent with known history of chronic hyponatremia. Plan: 1. Daily BMP 2. Placed on fluid restriction 3.Sodium tablets started Rib Fractures - Multiple old-appearing rib fractures (left 1-7) noted on CT chest, likely acute from CPR. Family did not prior history of rib fracture after a fall last year Plan: 1. Pain control with acetaminophen and lidocaine patches. 2. Incentive spirometry to prevent atelectasis and pneumonia. 3. Discontinue dilaudid - changed to norco Lung Cancer - History of stage IB ([id number]) squamous cell carcinoma of the left lower lobe, treated with radiation completed in 07/1998, currently on surveillance with CT scans every 6 months. Plan: 1. Continue surveillance CT scans as scheduled, next due in 10/2024. 2. Oncology follow-up to assess for signs of recurrence or progression. Anticiapate discharge to SNF tomorrow if continues to improve October 09, 2024 Patient is noted to be having significant bouts of cough. She looks extremely uncomfortable. Unable to catch breath while coughing. Complains of pain in her ribs on attempting to cough. Discussed with her the results of the CT chest which shows multiple rib fractures on the left side involving the left first second third fourth fifth and sixth and seventh ribs. These fractures are noted to be acute. There are old fractures on the right side sustained after a fall 1 year ago. Chest x-ray taken on October 06, 2024 shows bilateral patchy lower lobe opacities representing of acute pneumonia. Per personal interpretation left side appears to be much worse compared to the right side. Will repeat chest x-ray today given worsening cough. Continue levofloxacin 750 mg IV daily. Encourage incentive spirometer. Currently unable to perform the spirometer due to pain. Change hydrocodone APAP to scheduled every 6 hours. Add as needed morphine for breakthrough pain. Add lidocaine patch for local chest wall application daily over the left chest wall. If above measures fail to control the pain, may need to consider adding a fentanyl patch. Patient reports a history of allergy to codeine with tongue swelling therefore would not use this as a cough suppressant for now. Added scheduled Tessalon Perles and dextromethorphan for cough suppression.Add scheduled DuoNeb nebulization. October 10, 2024 She appears to be more comfortable today. Getting lidocaine patch on at the time of examination. States she had a rough night related to the pain. Will add Toradol 15 mg IV every 8 hours as needed. Kidney function reviewed normal. Patient states oxycodone appears to be working better than hydrocodone there for which hydrocodone has been discontinued. Oxycodone APAP 5 mg / 325 mg ordered every 6 hours scheduled.. Lidocaine local patch application over the left chest wall. Additionally ordered for intermittent IV morphine for breakthrough pain. Encouraged incentive spirometry and flutter valve. Patient has been on antibiotic coverage with levofloxacin. Will discontinue this today and transition to ceftriaxone and vancomycin She has been missing beta-lactam coverage thus far due to reported allergy to penicillin several years ago which is hives. Reports having tolerated Keflex in the past. Will proceed with ceftriaxone.D/c Prednisone PDMP PDMP Reviewed: Not Reviewed Attestations 2 Medical Necessity Statement*: change antibiotics, worsening pneumonia, pain management needing iv and oral medications Coding Level of Care Code Acute Code for g Fwd Diagnoses Hypotension I95.9 Cardiac arrest I46.9 Hyponatremia E87.1 Lactic acidosis E87.20 Malignant neoplasm of lower lobe of right lung C34.31 Laterality: right Sepsis A41.9 Lupus (systemic lupus erythematosus) M32.9 Acute metabolic encephalopathy G93.41 Hypothermia T68.XXXA Septic shock A41.9; R65.21 Non-STEMI (non-ST elevated myocardial infarction) I21.4
[2024-10-10 09:54] LABS: Anion Gap 19.2 (5-19); Potassium 4.2 mmol/L (3.5-5.1)
[2024-10-10 09:55] LABS: Aspartate Amino Transferase 24 U/L (0-32)
[2024-10-10] MEDS: VANCOMYCIN ADD-Vantage 1,000 MG in 0.9% NaCl ADD-Vantage 250 ML 250 MG IV (10:30)
[2024-10-10] MEDS: ketorolac 30 mg/mL INJ 15 MG IVP ×2 (10:31→18:07)
[2024-10-10] MEDS: cefTRIAXone 1,000 mg SDV 1000 MG IVP (10:31)
--- NOTE | 2024-10-10 13:09 | PHA.VACGOAL ---
Vancomycin Goal - Goal Vancomycin Goal:: 15-20 mg/L Vancomycin Indication:: Pneumonia - Therapy Day of therpy:: Day []of [] . Actual body weight (kg): 146 lb 3.2 oz - Data Labs: WBC 18.88 10^3/uL (3.29-11.43) H 10/10/24 08:36 Corrected WBC Cancelled 10/08/24 04:40 RBC 3.39 10^6/uL (3.85-5.65) L 10/10/24 08:36 Hgb 11.30 g/dL (11.27-16.99) 10/10/24 08:36 Hct 35.0 % (36-47) L 10/10/24 08:36 MCV 103.2 fl (85-98) H 10/10/24 08:36 MCH 33.3 pg (27-33) H 10/10/24 08:36 MCHC 32.3 g/dL (30-55) 10/10/24 08:36 RDW 12.4 % (12.1-15.1) 10/10/24 08:36 Sodium 128 mmol/L (136-145) L 10/10/24 08:36 Potassium 4.2 mmol/L (3.5-5.1) 10/10/24 08:36 Chloride 87 mmol/L (98-107) L 10/10/24 08:36 Carbon Dioxide 26 mmol/L (22-29) 10/10/24 08:36 Anion Gap 19.2 (5-19) H 10/10/24 08:36 BUN 12 mg/dL (8-23) 10/10/24 08:36 Creatinine 0.6 mg/dL (0.5-0.9) 10/10/24 08:36 GFR Calculation Not Reportable 10/10/24 08:36 Treatment plan:: new consult Regimen:: GIVE 1000 MG NOW AND CONTINUE 500 MG Q12 H MONITOR DAILY
[2024-10-10 14:19] LABS: Base Excess VBG -3.4 mmol/L (-3.0-3.0); Blood Gas Operator Identificat jlb; Blood Gas Sample Site Not specified; Blood Gas Sample Type Venous; Oxygen Device NC; PCO2 VBG 46.3 mmHg (41-51); PO2 VBG 50.7 mmHg (25-40); Venous Blood Gas Hematocrit 36.3 % (37-47); pH VBG 7.31 (7.32-7.42)
[2024-10-10] MEDS: ALPRAZolam 0.5 mg Tablet PO (20:49)
[2024-10-10] MEDS: vancomycin 500 MG in sodium chloride 0.9% (plus) 100 ML 200 MG IV (20:52)
[2024-10-11] VITALS (17 sets, daily range): BP systolic 101–157; BP diastolic 65–84; PULSE 56–86; RESP 12–23; TEMP 36.6–36.9; O2SAT 94–100
[2024-10-11] MEDS: ketorolac 30 mg/mL INJ 15 MG IVP ×3 (01:40→17:14)
[2024-10-11] MEDS: levalbuterol 1.25 mg/3 mL Neb INHALATION ×3 (02:34→21:11)
[2024-10-11] MEDS: oxyCODONE-APAP 5-325 mg Tablet 1 TAB PO ×3 (06:19→21:05)
[2024-10-11] MEDS: guaiFENesin-dextromethorphan UDC 10 mL PO ×3 (08:46→21:04)
[2024-10-11] MEDS: lidocaine 5% Patch 1 PATCH TOPICAL (08:46)
[2024-10-11] MEDS: sodium chloride 1 gm Tablet PO ×2 (08:46→17:14)
[2024-10-11] MEDS: aspirin 81 mg EC Tablet PO (08:47)
[2024-10-11] MEDS: benzonatate 100 mg Capsule PO ×3 (08:47→21:04)
[2024-10-11] MEDS: metoprolol tartrate 25 mg Tablet PO ×2 (08:47→21:04)
[2024-10-11] MEDS: losartan 50 mg Tablet 25 MG PO (08:47)
[2024-10-11] MEDS: pantoprazole DR 40 mg Tablet PO (08:47)
[2024-10-11] MEDS: vancomycin 500 MG in sodium chloride 0.9% (plus) 100 ML 200 MG IV ×2 (10:00→21:33)
[2024-10-11] MEDS: cefTRIAXone 1,000 mg SDV 1000 MG IVP (10:00)
--- NOTE | 2024-10-11 12:14 | PC.SOCIAL ---
IMM Updated Updated pt on IMM. No questions voiced. Provided pt a copy. Initialed, dated, & timed copy in chart.
--- NOTE | 2024-10-11 12:59 | PC.NURSE ---
Provider ordered to remove patients kruse catheter today. Order placed.
--- NOTE | 2024-10-11 16:57 | P.PN_ITS ---
Subjective 2 Subjective: Patient requested a lab break today therefore no labs were drawn today. Medications: Reviewed: Yes Vitals/I&O/Wt Last Vital Signs Temp 98.3 F 10/11/24 15:34 Pulse 79 10/11/24 15:34 Resp 18 10/11/24 15:34 BP 125/68 10/11/24 15:34 Pulse Ox 95 10/11/24 15:34 O2 Del Method Nasal Cannula 10/11/24 15:34 O2 Flow Rate 1 10/11/24 14:24 10/11/24 10/11/24 10/11/24 06:59 14:59 22:59 Intake Total 0 / 830 580 / 580 Output Total 300 / 700 Balance -300 / 130 580 / 580 Weight last 48 hrs Weight 67.812 kg Weight 66.315 kg Physical Exam 2 Narrative: General: Awake alert and oriented x 3. Appears more comfortable compared to prior exam HEENT: PERRLA, pupils bilaterally equal and reactive, pallors not present Chest: Normal vesicular breath sounds, no added sounds, equal good air entry bilaterally CVS: S1-S2 regular, no murmurs, no tachycardia, no gallops, no rubs Abdomen: Soft, nontender, no organomegaly, bowel sounds present Neuro: No focal deficits, no facial deformity, AO x3, power 5/5 in all limbs Urinary Catheter Management: Rogers: Cath Placed During This Visit: yes, but has since been removed by the nurse Reason for Continuing Indwelling Catheter: Accurate Measurement of Urinary Output in Critically Ill Patients Urinary Catheter Date of Insertion: 10/03/24 Urinary Catheter Time of Insertion: 03: Date Urinary Catheter Removed: 10/11/24 Time Urinary Catheter Discontinued: 14:01 Data 10/10/24 08:36 10/10/24 08:36 A&P Assessment and plan (1) Hypotension: (2) Cardiac arrest: (3) Hyponatremia: (4) Lactic acidosis: (5) Lung cancer, lower lobe: Qualifiers: Laterality: right Qualified Code(s): C34.31 - Malignant neoplasm of lower lobe, right bronchus or lung (6) Sepsis: (7) Lupus (systemic lupus erythematosus): (8) Acute metabolic encephalopathy: (9) Hypothermia: (10) Septic shock: (11) Non-STEMI (non-ST elevated myocardial infarction): Plan Acute Hypoxic Respiratory Failure on Chronic / COPD exacerbation / B/L pneumonia vs fluid -Presented with hypoxia, requiring 2L oxygen via nasal cannula. Likely multifactorial given underlying COPD, possible pneumonia, and recent cardiac arrest.She has been having chest wall pain with deep inspiration due to CPR and rib fractures. This is likely contributing. - Repeat chest xray showed - Bilateral Lower lobe pneunonia - Paient was supposed to be on 2l via NC all the time however was only using PRN at home Plan: 1. Patient is now starting to feel better today - She was started on Prednisone 40 mg daily yesterday - Continued on levaquin 750 mg daily - Was given lasix on the - Requiring 2 L of oxygen via nasal cannula today, decreasd from 3. Cardiac Arrest? - Presented after being found unresponsive at home, received 6 minutes of CPR by EMS before ROSC, requiring one dose of epinephrine. Etiology unclear at this time. - Discussed with Cardiology today did not feel this was likely cardiac event. Possibly hypertension due to Sepsis. - it is a Past belated the patient did not actually lose a pulse but may have just been hypotensive is unclear rhythm at the time of event. Plan: 1. Echocardiogram showed preserved ejection fraction. 2. Continue to monitor on telemetry. 3. Appreciate cardiology input Suspected sepsis possibly due to bilateral pneumonia - Meets SIRS criteria with tachycardia, tachypnea, and leukocytosis. Possible infectious sources include pneumonia given lung findings on imaging, or urinary tract infection given urinalysis results. - Staphylococci epidermidis in 1/3 blood cultures. this is very likely a contamination. - Afebrile Plan: 1. Discontinue empiric broad-spectrum antibiotics with azactam 2g IV q12h (penicillin allergy), Discontinue clindamycin 900mg IV q8h and Zyvox 600mg IV q12h.(this was started on admission ) 2. Chest xray showed Bilateral pneumonia 3. Continue Levaquin 750 daily - Plan for total 7 day course of abx 4. Culture remain negative 5. Will need a repeat chest xray in 3-4 weeks Hypertension - Also noted to be tachycardia Plan: 1. Was on coreg however changed to metoprolol 25 mg BID. HR improved. BP stable 2. Will continue to titrate as needed. Metabolic Acidosis - RESOLVED - Presented with pH 7.2, bicarbonate 17, and lactic acid 7.4, likely due to hypoperfusion from cardiac arrest and sepsis. Plan: 3. Trend labs Hyponatremia- Stable - Sodium 128 on presentation, consistent with known history of chronic hyponatremia. Plan: 1. Daily BMP 2. Placed on fluid restriction 3.Sodium tablets started Rib Fractures - Multiple old-appearing rib fractures (left 1-7) noted on CT chest, likely acute from CPR. Family did not prior history of rib fracture after a fall last year Plan: 1. Pain control with acetaminophen and lidocaine patches. 2. Incentive spirometry to prevent atelectasis and pneumonia. 3. 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 Plan: 1. Continue surveillance CT scans as scheduled, next due in 10/2024. 2. Oncology follow-up to assess for signs of recurrence or progression. Anticiapate discharge to SNF tomorrow if continues to improve October 09, 2024 Patient is noted to be having significant bouts of cough. She looks extremely uncomfortable. Unable to catch breath while coughing. Complains of pain in her ribs on attempting to cough. Discussed with her the results of the CT chest which shows multiple rib fractures on the left side involving the left first second third fourth fifth and sixth and seventh ribs. These fractures are noted to be acute. There are old fractures on the right side sustained after a fall 1 year ago. Chest x-ray taken on October 06, 2024 shows bilateral patchy lower lobe opacities representing of acute pneumonia. Per personal interpretation left side appears to be much worse compared to the right side. Will repeat chest x-ray today given worsening cough. Continue levofloxacin 750 mg IV daily. Encourage incentive spirometer. Currently unable to perform the spirometer due to pain. Change hydrocodone APAP to scheduled every 6 hours. Add as needed morphine for breakthrough pain. Add lidocaine patch for local chest wall application daily over the left chest wall. If above measures fail to control the pain, may need to consider adding a fentanyl patch. Patient reports a history of allergy to codeine with tongue swelling therefore would not use this as a cough suppressant for now. Added scheduled Tessalon Perles and dextromethorphan for cough suppression.Add scheduled DuoNeb nebulization. October 10, 2024 She appears to be more comfortable today. Getting lidocaine patch on at the time of examination. States she had a rough night related to the pain. Will add Toradol 15 mg IV every 8 hours as needed. Kidney function reviewed normal. Patient states oxycodone appears to be working better than hydrocodone there for which hydrocodone has been discontinued. Oxycodone APAP 5 mg / 325 mg ordered every 6 hours scheduled.. Lidocaine local patch application over the left chest wall. Additionally ordered for intermittent IV morphine for breakthrough pain. Encouraged incentive spirometry and flutter valve. Patient has been on antibiotic coverage with levofloxacin. Will discontinue this today and transition to ceftriaxone and vancomycin She has been missing beta-lactam coverage thus far due to reported allergy to penicillin several years ago which is hives. Reports having tolerated Keflex in the past. Will proceed with ceftriaxone.D/c Prednisone October 11, 2024 Patient is clinically better today. States pain is better. She was able to sleep overnight. Currently pain is better controlled on a regimen of oxycodone and as needed Toradol together with lidocaine patch. She is able to talk to me in complete sentences today which is an improvement over previous exams. Less short of breath. She is able to ambulate more. Walking to the bathroom and back. Complains of tightness in chest with taking deep breaths. Will repeat chest x- ray in the morning. Extensive bruising is noted over the left chest wall related to the acute fall. This is not new. Continue IV antibiotics including ceftriaxone and vancomycin. Recheck leukocytosis with a.m. labs. Additionally check sodium level for hyponatremia. She is currently on oral salt supplementation 1 g twice daily. PDMP PDMP Reviewed: Not Reviewed Attestations 2 Medical Necessity Statement*: Patient is clinically improving today. Will repeat x-ray and labs to assess for serial interval improvement of leukocytosis. Coding Level of Care Code Acute Code for g Fwd Diagnoses Hypotension I95.9 Cardiac arrest I46.9 Hyponatremia E87.1 Lactic acidosis E87.20 Malignant neoplasm of lower lobe of right lung C34.31 Laterality: right Sepsis A41.9 Lupus (systemic lupus erythematosus) M32.9 Acute metabolic encephalopathy G93.41 Hypothermia T68.XXXA Septic shock A41.9; R65.21 Non-STEMI (non-ST elevated myocardial infarction) I21.4
[2024-10-11] MEDS: sennosides-docusate Tablet 1 TAB PO (17:14)
[2024-10-11] MEDS: ALPRAZolam 0.5 mg Tablet PO (21:05)
[2024-10-12] VITALS (8 sets, daily range): BP systolic 129–158; BP diastolic 61–83; PULSE 71–84; RESP 15–18; TEMP 36.4–36.9; O2SAT 2–100
[2024-10-12] MEDS: ketorolac 30 mg/mL INJ 15 MG IVP ×2 (02:21→09:01)
--- NOTE | 2024-10-12 06:00 | XRR_ITS ---
PROCEDURE INFORMATION: Exam: XR Chest Exam date and time: 10/12/2024 5:32 AM Age: 79 years old Clinical indication: Cough and shortness of breath; Additional info: Follow up pneumonia TECHNIQUE: Imaging protocol: Radiologic exam of the chest. Views: 1 view. COMPARISON: CR XR chest 1V portable [id number] 09/10/2024 15:00 FINDINGS: Lungs: Low lung volumes. Pleural spaces: Persistent small left pleural effusion with adjacent atelectasis. Pneumonia should be considered in the adequate clinical setting. The right lung is clear. Heart/Mediastinum: Stable cardiomediastinal silhouette. Bones/joints: Degenerative changes of the spine seen. XR/XR chest 1V portable [id number] IMPRESSION: Persistent small left pleural effusion with adjacent atelectasis. Pneumonia should be considered in the adequate clinical setting.
[2024-10-12 06:09] LABS: Basophils % 0.3 %; Eosinophils # 0.2 10^3/uL (0.0-0.8); Eosinophils % 1.6 %; Hematocrit 26.2 % (36-47); Lymphocytes # 1.3 10^3/uL (0.8-4.8); Lymphocytes % 9.8 %; Mean Corpuscular HGB Conc 33.2 g/dL (30-55); Mean Corpuscular Hemoglobin 33.9 pg (27-33); Mean Corpuscular Volume 101.9 fl (85-98); Mean Platelet Volume 8.2 fL (7.4-10.4); Monocytes # 1.1 10^3/uL (0.2-0.9); Monocytes % 8.2 %; Neutrophils # 10.61 10^3/uL (1.8-7.7); Neutrophils % 78.6 %; Nucleated Red Blood Cells % 0 %; Platelet Count 259 10^3/cmm (157-399); Red Blood Count 2.57 10^6/uL (3.85-5.65); Red Cell Distribution Width 12.7 % (12.1-15.1); White Blood Count 13.51 10^3/uL (3.29-11.43)
[2024-10-12 06:37] LABS: Alanine Aminotransferase 9 U/L (0-33); Alkaline Phosphatase 77 U/L (35-105); Blood Urea Nitrogen 11 mg/dL (8-23); Calcium 8.1 mg/dL (8.5-10.5); Carbon Dioxide 25 mmol/L (22-29); Chloride 91 mmol/L (98-107); Globulin 2.1 g/dL (1.3-4.6); Glucose 83 mg/dL (65-115); Osmolality Calculated 261 mOsm/kg (285-295); Sodium 126 mmol/L (136-145); Total Bilirubin 0.4 mg/dL (0.15-1.2); Total Protein 5.1 g/dL (6.6-8.7)
[2024-10-12 06:44] LABS: Anion Gap 14.2 (5-19); Aspartate Amino Transferase 19 U/L (0-32); Potassium 4.2 mmol/L (3.5-5.1)
[2024-10-12] MEDS: oxyCODONE-APAP 5-325 mg Tablet 1 TAB PO ×2 (07:32→12:07)
[2024-10-12] MEDS: levalbuterol 1.25 mg/3 mL Neb INHALATION (08:44)
[2024-10-12 08:51] LABS: Vancomycin Trough 11.8 ug/mL (10-15)
[2024-10-12] MEDS: metoprolol tartrate 25 mg Tablet PO (08:54)
[2024-10-12] MEDS: aspirin 81 mg EC Tablet PO (08:54)
[2024-10-12] MEDS: pantoprazole DR 40 mg Tablet PO (08:55)
[2024-10-12] MEDS: lidocaine 5% Patch 1 PATCH TOPICAL (08:55)
[2024-10-12] MEDS: sennosides-docusate Tablet 1 TAB PO (08:55)
[2024-10-12] MEDS: benzonatate 100 mg Capsule PO (08:55)
[2024-10-12] MEDS: guaiFENesin-dextromethorphan UDC 10 mL PO (08:55)
[2024-10-12] MEDS: losartan 50 mg Tablet 25 MG PO (08:56)
[2024-10-12] MEDS: cefTRIAXone 1,000 mg SDV 1000 MG IVP (08:56)
[2024-10-12] MEDS: vancomycin 500 MG in sodium chloride 0.9% (plus) 100 ML 200 MG IV (08:59)
--- NOTE | 2024-10-12 10:24 | PM.DCS ---
Discharge Providers Date of Admission: 10/03/24 05:13 Date of Discharge: October 12, 2024 Attending Provider at Admission: Edward Lund MD Attending Provider at Discharge: Nita Hayes MD Primary Care Provider: Dagmar Santos DO Diagnoses at Discharge Discharge Diagnosis (1) Hypotension: Status: Acute (2) Cardiac arrest: Status: Acute (3) Hyponatremia: Status: Acute (4) Lactic acidosis: Status: Acute (5) Lung cancer, lower lobe: Status: Acute Qualifiers: Laterality: right Qualified Code(s): C34.31 - Malignant neoplasm of lower lobe, right bronchus or lung (6) Sepsis: Status: Acute (7) Lupus (systemic lupus erythematosus): Status: Acute (8) Acute metabolic encephalopathy: Status: Acute (9) Hypothermia: Status: Acute (10) Septic shock: Status: Acute (11) Rib fracture: Status: Acute (12) Pneumonia: Status: Acute (13) Pleural effusion: Status: Acute Reason for Visit Reason for Visit: resp distress Hospital Course Hospital Course 79-year-old female with a past medical history of chronic obstructive pulmonary disease (COPD), 50 pack-year smoking history, hypertension, systemic lupus erythematosus (SLE), spinal stenosis, and 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 The patient was found unresponsive by family, prompting EMS activation. Upon EMS arrival, she was noted to be pulseless and hypotensive, necessitating CPR for a duration of 3-6 minutes and administration of one dose of epinephrine. Upon arrival to the emergency department, she was alert and awake but remained hypotensive, requiring initiation of IV pressors which were quickly weaned. 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 Cardiology was consulted and an echocardiogram performed on 10/03/2024 demonstrated normal left ventricular size and systolic function, wall thickness, no regional wall motion abnormalities, ejection fraction of 60%, no pericardial effusion, and right atrial pressure of 5 mmHg. Cardiology did not feel this presentation was consistent with a cardiac event. She was noted to have significant brusing over her left chest wall and multiple rib fractured B/L. rigth side fractures, appeared to be old. multiple rib fractures on the left side involving the left first second third fourth fifth and sixth and seventh ribs. These fractures are noted to be acute, likely from CPR. Hospital course was further complicated by development of a pneumonia and a parapneumonic effusion likely as a complication of atelectasis resulting from the rib fracture. Her hemoglobin remained stable therefore hemothorax is considered less likely. She received treatment with broad-spectrum antibiotics for the pneumonia. Initially she was on levofloxacin, however was noted to have increasing white blood cell count while on the levofloxacin therefore antibiotics were broadened to ceftriaxone and vancomycin. With this intervention leukocytosis has trended down now down to 13,000. Patient is afebrile. Patient is additionally encouraged to use incentive spirometer and flutter valve. Initially patient was unable to use either of these due to significant pain. Hospital stay needed to be slightly prolonged as she required optimization of her pain management regimen. Currently she has good control with a combination of oxycodone, Toradol and as needed IV morphine. She will be discharged with a prescription for oxycodone. Additionally cough suppressants for added which helped with recurrent bouts of cough which were precluding her from breathing effectively. Home oxygen evaluation was performed prior to discharge. Patient is in an improved state currently. Patient refused SNF as she feels much improved. She is participating with PT and walked 100 ft with walker. She declines home health. She was recommended to take NAcl tablets for hyponatremia however she has been refusing this medication as it makes her nauseous. Follow up with PCP for repeat Na check early next week, she will discharge on oral abx today and will need serial CXR in 2 weeks to ensure resolution of PNA and effusion. Physical Exam Narrative: General: No acute distress, AO x3 HEENT: PERRLA, pupils bilaterally equal and reactive, pallors not present Chest: Normal vesicular breath sounds, no added sounds, equal good air entry bilaterally CVS: S1-S2 regular, no murmurs, no tachycardia, no gallops, no rubs Abdomen: Soft, nontender, no organomegaly, bowel sounds present Neuro: No focal deficits, no facial deformity, AO x3, power 5/5 in all limbs EXt: diffuse brusing over left chest wall, blue purple discoloration Urinary Catheter Management: Rogers: Cath Placed During This Visit: yes, but has since been removed by the nurse Reason for Continuing Indwelling Catheter: Accurate Measurement of Urinary Output in Critically Ill Patients Urinary Catheter Date of Insertion: 10/03/24 Urinary Catheter Time of Insertion: 03: Date Urinary Catheter Removed: 10/11/24 Time Urinary Catheter Discontinued: 14:01 Discharge Data Studies Completed and Pending Completed Studies During Hospitalization Category Date Time Status CT Angio Chest + Abdomen Pelvis wo/w; 63574 + 99570 Cat Scan 10/03/24 04:[address] head wo con* [id number] Stat Cat Scan 10/03/24 02:55 Completed CXRP [XR chest 1V portable [id number]] Routine Exams 10/09/24 14:54 Completed CXRP [XR chest 1V portable [id number]] Stat Exams 10/06/24 12:30 Completed XR chest 1V portable [id number] AM LABS Exams 10/12/24 06:00 Completed XR chest 1V portable [id number] Stat Exams 10/03/24 02:55 Completed CV. echo complete* [id number] Routine Ultrasound 10/03/24 03:39 Completed CV. echo limited [id number] Routine Ultrasound 10/03/24 13:40 Completed Radiology Impressions Head CT 10/03/24 02:55 IMPRESSION: Tohv-wc-tdglurkh small vessel disease. No evidence of acute intracranial process. Chest/Abdomen/Pelvis CT 10/03/24 04:13 IMPRESSION: 1. Emphysema. 2. Trace pleural effusions with linear atelectasis or scarring involving the lung bases and right middle lobe. 3. Somewhat nodular opacity involving the lingula and anterior left lower lobe adjacent to the lingula most likely inflammatory. Recommend short-term follow-up after therapy to document resolution. 4. Bronchial wall thickening suggesting a degree of bronchitis or respiratory bronchiolitis. 5. Multiple rib fractures. Please see above comments. IMPRESSION: 1. Fatty infiltration of the liver. 2. Scattered colonic diverticula. Chest X-Ray 10/12/24 06:00 IMPRESSION: Persistent small left pleural effusion with adjacent atelectasis. Pneumonia should be considered in the adequate clinical setting. Laboratory Results WBC 13.51 10^3/uL (3.29-11.43) H 10/12/24 04:27 Corrected WBC Cancelled 10/08/24 04:40 RBC 2.57 10^6/uL (3.85-5.65) L 10/12/24 04:27 Hgb 8.70 g/dL (11.27-16.99) L 10/12/24 04:27 Hct 26.2 % (36-47) L 10/12/24 04:27 MCV 101.9 fl (85-98) H 10/12/24 04:27 MCH 33.9 pg (27-33) H 10/12/24 04:27 MCHC 33.2 g/dL (30-55) 10/12/24 04:27 RDW 12.7 % (12.1-15.1) 10/12/24 04:27 Plt Count 259 10^3/cmm (157-399) 10/12/24 04:27 MPV 8.2 fL (7.4-10.4) 10/12/24 04:27 Gran % Cancelled 10/08/24 04:40 Neut % (Auto) 78.6 % 10/12/24 04:27 Lymph % (Auto) 9.8 % 10/12/24 04:27 [place] % (Auto) 8.2 % 10/12/24 04:27 Eos % (Auto) 1.6 % 10/12/24 04:27 Baso % (Auto) 0.3 % 10/12/24 04:27 Neut # (Auto) 10.61 10^3/uL (1.8-7.7) H 10/12/24 04:27 Lymph # (Auto) 1.3 10^3/uL (0.8-4.8) 10/12/24 04:27 [place] # (Auto) 1.1 10^3/uL (0.2-0.9) H 10/12/24 04:27 Eos # (Auto) 0.2 10^3/uL (0.0-0.8) 10/12/24 04:27 Baso # (Auto) 0.0 10^3/uL (0.0-0.1) 10/12/24 04:27 Absolute Gran (auto) Cancelled 10/08/24 04:40 Nucleated RBC % (auto) 0 % 10/12/24 04:27 Nucleated RBCs # 0.0 /100WBC 10/12/24 04:27 D-Dimer 10.78 ug/mLFEU (0-0.59) H 10/03/24 03:20 Specimen Type Arterial 10/04/24 04:26 Sample Site Brachial, right 10/04/24 04:26 ABG pH 7.42 (7.35-7.45) 10/04/24 04:26 ABG pCO2 44.9 mmHg (35-45) 10/04/24 04:26 ABG pO2 116.0 mmHg (80.0-100.0) H 10/04/24 04:26 ABG HCO3 29.0 mmol/L (22-26) H 10/04/24 04:26 ABG O2 Saturation > 99.1 10/03/24 03:00 ABG Base Excess 3.9 mmol/L (-2.0-2.0) H 10/04/24 04:26 Reji Test N/a 10/04/24 04:26 VBG pH 7.31 (7.32-7.42) L 10/03/24 06:47 VBG pCO2 46.3 mmHg (41-51) 10/03/24 06:47 VBG pO2 50.7 mmHg (25-40) H 10/03/24 06:47 VBG HCO3 23.0 mmol/L (24-28) L 10/03/24 06:47 VBG Base Excess -3.4 mmol/L (-3.0-3.0) L 10/03/24 06:47 VBG Hematocrit 36.3 % (37-47) L 10/03/24 06:47 A-a O2 Gradient Not Reportable 10/03/24 03:00 Hematocrit 30.6 % (37-47) L 10/04/24 04:26 Hgb O2 Saturation 97.2 % (95-100) 10/03/24 03:00 Carboxyhemoglobin 1.8 %THgb (0.4-20.1) 10/03/24 03:00 Methemoglobin 0.7 % (0.4-1.5) 10/03/24 03:00 Total Hemoglobin 11.9 g/dL (12-16) L 10/03/24 03:00 Sodium 126.0 mmol/L (131-143) L 10/03/24 03:00 Potassium 5.3 mmol/L (3.5-5.0) H 10/03/24 03:00 Glucose 194.0 mg/dL (70-115) H 10/03/24 03:00 Ionized Calcium 1.1 mmol/L (1.1-1.4) 10/03/24 03:00 O2 Delivery Device Nc 10/04/24 04:26 O2 Liters/Min 3.0 % 10/04/24 04:26 Paper Products Machine Operator ID [id number] 10/04/24 04:26 Sodium 126 mmol/L (136-145) L 10/12/24 04:27 Potassium 4.2 mmol/L (3.5-5.1) 10/12/24 04:27 Chloride 91 mmol/L (98-107) L 10/12/24 04:27 Carbon Dioxide 25 mmol/L (22-29) 10/12/24 04:27 Anion Gap 14.2 (5-19) 10/12/24 04:27 BUN 11 mg/dL (8-23) 10/12/24 04:27 Creatinine 0.6 mg/dL (0.5-0.9) 10/12/24 04:27 GFR Calculation Not Reportable 10/12/24 04:27 Glucose 83 mg/dL (65-115) 10/12/24 04:27 POC Glucose 163 mg/dL (70-110) H 10/03/24 03:12 Calculated Osmolality 261 mOsm/kg (285-295) L 10/12/24 04:27 Lactic Acid 4.1 mmol/L (0.5-2.2) H* 10/03/24 09:37 Lactic Acid (Sepsis) 2.1 mmol/L (0.5-2.2) 10/03/24 13:03 Calcium 8.1 mg/dL (8.5-10.5) L 10/12/24 04:27 Phosphorus 5.2 mg/dL (2.5-4.5) H 10/03/24 03:20 Magnesium 2.5 mg/dL (1.7-2.3) H 10/03/24 03:20 Total Bilirubin 0.4 mg/dL (0.15-1.2) 10/12/24 04:27 AST 19 U/L (0-32) 10/12/24 04:27 ALT 9 U/L (0-33) 10/12/24 04:27 Alkaline Phosphatase 77 U/L (35-105) 10/12/24 04:27 Troponin T Baseline 28 ng/L (0-10) H 10/03/24 03:20 Troponin T 120 Minute 45.41 ng/L (0-10) H 10/03/24 05:59 Delta Troponin T 17.41 ABS# (0-10) H* 10/03/24 05:59 Troponin T Hi Sens 6Hr 52.25 ng/L (0-10) H 10/03/24 09:37 Troponin T Hi Sens 6Hr Delta 24.25 ng/L (0-12) H* 10/03/24 09:37 C-Reactive Protein 3.0 mg/L (0.0-4.9) 10/03/24 03:20 Total Protein 5.1 g/dL (6.6-8.7) L 10/12/24 04:27 Albumin 3.0 g/dL (3.5-5.2) L 10/12/24 04:27 Globulin 2.1 g/dL (1.3-4.6) 10/12/24 04:27 Procalcitonin 0.08 ng/mL (0-0.5) 10/03/24 03:20 TSH 2.51 uIU/mL (0.27-4.20) 10/03/24 03:20 Urine Color Yellow (Yellow) 10/03/24 03:30 Urine Appearance Clear (CLEAR) 10/03/24 03:30 Urine pH 7.5 (5-7) 10/03/24 03:30 Ur Specific Lorida 1.007 (1.005-1.030) 10/03/24 03:30 Urine Protein 2+ (Negative) A 10/03/24 03:30 Urine Glucose (UA) Trace (Normal) H 10/03/24 03:30 Urine Ketones Negative (Negative) 10/03/24 03:30 Urine Blood 3+ (Negative) A 10/03/24 03:30 Urine Nitrate Negative (Negative) 10/03/24 03:30 Urine Bilirubin Negative (Negative) 10/03/24 03:30 Urine Urobilinogen 0.2 mg/dL (Negative) 10/03/24 03:30 Ur Leukocyte Esterase Negative (Negative) 10/03/24 03:30 Urine RBC 51-100 /hpf (0-2) H 10/03/24 03:30 Urine WBC 0-5 /hpf (0-5) 10/03/24 03:30 Ur Squamous Epith Cells 0-5 /hpf (0-5) 10/03/24 03:30 Amorphous Sediment Not Reportable 10/03/24 03:30 Urine Bacteria None seen /hpf (NONE) 10/03/24 03:30 Hyaline Casts 3.30 /lpf 10/03/24 03:30 Nasal MRSA (PCR) Not detected (Not Detecte) 10/05/24 12:01 Vancomycin Trough 11.8 ug/mL (10-15) 10/12/24 08:24 Influenza A (PCR) Negative (Negative) 10/03/24 03:20 Influenza Type B (PCR) Negative (Negative) 10/03/24 03:20 RSV (PCR) Negative (Negative) 10/03/24 03:20 SARS-CoV-2 (PCR) Negative (Negative) 10/03/24 03:20 Vitals Last Vital Signs Temp 98.4 F 10/12/24 07:37 Pulse 84 10/12/24 08:46 Resp 18 10/12/24 08:46 BP 155/83 10/12/24 08:56 Pulse Ox 93 10/12/24 08:46 O2 Del Method Nasal Cannula 10/12/24 08:46 O2 Flow Rate 2 10/12/24 08:46 Discharge Plan Discharge Patient Disposition: Xfer SNF Condition: Stable Prescriptions: New sennosides-docusate sodium [Stool Softener-Laxative] 8.6-50 mg Tablet 1 tab PO BID 30 Days Qty: 60 0RF dextromethorphan-guaifenesin 10-100 mg/5 mL Syrup 10 ml PO Q6H 10 Days Qty: 400 0RF oxycodone-acetaminophen 5-325 mg Tablet 1 tab PO Q6H PRN (Reason: Acne) 7 Days Qty: 28 0RF benzonatate 100 mg Capsule 100 mg PO TID 10 Days Qty: 30 0RF lidocaine 5 % Adhesive Patch,Medicated 1 patch topical DAILY 15 Days Qty: 15 0RF sodium chloride 1,000 mg Tablet,Soluble 1,000 mg PO DAILY 7 Days Qty: 7 0RF cefdinir 300 mg capsule 300 mg PO BID 5 Days Qty: 10 0RF linezolid 600 mg tablet 600 mg PO BID 5 Days Qty: 10 0RF Continued alprazolam [Xanax] 0.5 mg tablet 0.5 mg PO BEDTIME carvedilol 6.25 mg tablet 6.25 mg PO BID Rx Instructions: must administer with a meal/food latanoprost 0.005 % drops 1 drp ophthalmic (eye) BEDTIME olmesartan 20 mg tablet 20 mg PO DAILY Benlysta 200 mg/mL auto-injector 200 mg SUBCUT Q7D lansoprazole [Prevacid] 30 mg Capsule,Delayed Release(Dr/Ec) 30 mg PO DAILY Discontinued montelukast 10 mg tablet 10 mg PO DAILY methocarbamol 750 mg tablet 750 mg PO TID hydrocodone-acetaminophen 5-325 mg tablet 1 - 2 tab PO .Q4-6H PRN (Reason: pain) Discharge Orders: Discharge Order (Routine); Ordered 10/12/24 Ordered By: Nita Hayes Referrals: [facility] [Outside] Dagmar Santos DO [Primary Care Provider] - 4-7 days (hospital discharge follow up for repeat sodium check and repeat x ray ) Discharge Diet: Usual diet Discharge Activity: Increase activity as tolerated and As per PT/OT instructions Patient Instructions: Opioid Safety Activity Restrictions/Additional Instructions: please continue to use your incentive spirometer and flutter valve at home. please see your PCP next week and then again in 2 weeks as you need repeat sodium check and repeat X ray in 2 weeks. Discharge Attestations Time Spent in Discharge Care*: greater than 30 min Quality Metrics Clinical Quality Measures [ No reported AMI, CVA or VTE this stay] Coding Level of Care Code Acute Code for [facility] Fwd Diagnoses Hypotension I95.9 Cardiac arrest I46.9 Hyponatremia E87.1 Lactic acidosis E87.20 Malignant neoplasm of lower lobe of right lung C34.31 Laterality: right Sepsis A41.9 Lupus (systemic lupus erythematosus) M32.9 Acute metabolic encephalopathy G93.41 Hypothermia T68.XXXA Septic shock A41.9; R65.21 Rib fracture S22.39XA Pneumonia J18.9 Pleural effusion J90
== END 2024-10-12 13:55 | disposition home or self-care (01) | DRG 871 ==
LOC: ER 04:16 → ER IP 05:29 → CSU 17:17 → MEDSURG 10-11 20:53
PROVIDERS: Hospitalist; Admitting Provider Internal Medicine; Emergency Provider Emergency Medicine; PCP Family Medicine; Visit Provider Student in an Organized Health Care Education/Training Program
DX: A41.9 Sepsis, unspecified organism (principal); G93.41 Metabolic encephalopathy; R65.21 Severe sepsis with septic shock; J18.9 Pneumonia, unspecified organism; I21.4 Non-ST elevation (NSTEMI) myocardial infarction; S22.42XA Multiple fractures of ribs, left side, initial encounter for closed fracture; E22.2 Syndrome of inappropriate secretion of antidiuretic hormone; E87.20 Acidosis, unspecified; C34.31 Malignant neoplasm of lower lobe, right bronchus or lung; M96.A3 Multiple fractures of ribs associated with chest compression and cardiopulmonary resuscitation; J44.0 Chronic obstructive pulmonary disease with (acute) lower respiratory infection; J90 Pleural effusion, not elsewhere classified; J98.11 Atelectasis; M32.9 Systemic lupus erythematosus, unspecified; R68.0 Hypothermia, not associated with low environmental temperature; F17.210 Nicotine dependence, cigarettes, uncomplicated; I10 Essential (primary) hypertension; Z99.81 Dependence on supplemental oxygen; R00.0 Tachycardia, unspecified; Z92.21 Personal history of antineoplastic chemotherapy; Z92.3 Personal history of irradiation
CPT/HCPCS: 36415; 36416; 36600; 51702; 70450; 71045; 71275; 74177; 74178; 80048; 80051; 80053; 80202; 81001; 82330; 82803; 82805; 82962; 83605; 83735; 84100; 84145; 84295; 84443; 84484; 85025; 85378; 86140; 87040; 87077; 87086; 87150; 87186; 87205; 87637; 93005; 93306; 93308; 94640; 96365; 96366; 96367; 96372; 96375; 96376; 97110; 97116; 97162; 97166; 97530; 97535; 99291; A9270; A9281; J0131; J0171; J0360; J0696; J1171; J1650; J1885; J1940; J1956; J2020; J2185; J2270; J2405; J2470; J3370; J3490; J7030; J7050; J7512; J7614; J9999

== ENCOUNTER 2024-10-26 13:10 | Oncology outpatient (recurring) (ONCR) | payer MEDICARE, OTHER, SELFPAY ==
--- NOTE | 2024-10-24 11:00 | CTR_ITS ---
PROCEDURE INFORMATION: Exam: CT Chest With Contrast; Diagnostic Exam date and time: 10/24/2024 11:09 AM Age: 79 years old Clinical indication: Condition or disease; Lung condition and disease; Cancer of the lung; Bilateral; Unspecified; F/u lung cancer. PT has known left rib FX from cpr on 10/02/24. ; Additional info: Lung CA sp sbrt TECHNIQUE: Imaging protocol: Diagnostic computed tomography of the chest with contrast. Radiation optimization: All CT scans at this facility use at least one of these dose optimization techniques: automated exposure control; mA and/or kV adjustment per patient size (includes targeted exams where dose is matched to clinical indication); or iterative reconstruction. Contrast material: OMNI 350; Contrast volume: 100 ml; Contrast route: INTRAVENOUS (IV); COMPARISON: CT angio chest PE protcl [id number] 10/03/2024 4:44 AM RADIATION DOSE METRICS: Total DLP (mGy-cm): 240.97 FINDINGS: Lungs: Mild chronic lingular fibrosis or atelectasis. The tiny pulmonary nodules present previously appear unchanged. Pleural spaces: Unremarkable. No pneumothorax. No pleural effusion. Heart: Unremarkable. No cardiomegaly. No pericardial effusion. Lymph nodes: Unremarkable. No enlarged lymph nodes. Vasculature: Unremarkable. No aortic aneurysm. Bones/joints: Deformities from multiple healed left rib fractures. Soft tissues: Unremarkable. CT/CT chest w con* [id number] IMPRESSION: No significant change.
[2024-10-24] MEDS: iohexol 350 mg/mL 500 mL Btl (per mL) IV (11:22)
--- NOTE | 2024-10-26 14:46 | ONCRAD EPV_ITS ---
Radiation Oncology Established Patient Visit Patient: Uriel Castañeda [id number] : 1945> Age: 79> Sex: Female> Dictated by: Dr. Sanam Arzate Date of Service: 10/26/2024 Referring Physician(s) : Diagnosis: C34.32 - Malignant neoplasm of lower lobe, left bronchus or lung, Diagnosed 07/17/2024 (Active) Radiotherapy to Date: Course: LLL lung, Treatment Site: [id number], Ref. ID: [id number], Energy: 6X Dose/Fx (cGy): 1,200, #Fx: 4 / 4, Dose Correction (cGy): 0, Total Dose Delivered (cGy): 4,800, Start Date: 07/27/2024, End Date: 08/03/2024, Elapsed Days: 7 Current History: Patient returns today for her 1 month follow-up after SBRT for her left lower lung lesion. Subjectively she is not having issues with respiratory status. She did break 7-8 ribs when they did CPR on her. She is trying to recover from all of this. Her most recent CT scan did not reveal any evidence of new disease. Everything was stable. Current Medications: Allergies: Current Complaints / Review of Systems: . Vital Signs: Performed on 10/26/2024 1:57 PM BMI - 23.436 kg/m2 (high), Height - 60 in, Weight - 120 lbs, Temperature - 98.7 f, Pulse - 82 /min, Respiration - 17 /min, O2 Sat - 93 % (low), Pain - 5, Fatigue - 0 and BP - 142/ 80 mm(hg)(high/). Physical Exam: General: Alert and oriented x 3. No acute distress. HEENT normocephalic atraumatic. Pupils equal, sclera clear, extraocular muscles intact Pulmonary: Respiratory is regular nonlabored Cardiovascular: Regular rate and rhythm Performance Status: 70 Lab: None pending. Pathology: Primary, c34.32 - malignant neoplasm of lower lobe, left bronchus or lung, Diagnosed 07/17/2024 (active) . Imaging: See HPI Impression: Malignant neoplasm of left lower lobe status post SBRT Plan: At this point she is doing well clinically in regards to her treatment. She will continue to recover from her recent CPR. We talked about her next set of scans which would be in 6 months. Will get those scheduled and to have her return or give her the results over the phone at her request. Signed by: 10/26/2024 2:44:55 PM <<Signature on File>> Time spent with patient:20 CPT Code: * CPT Code: *
== END 2024-11-22 23:59 | disposition home or self-care (01) ==
PROVIDERS: PCP Family Medicine; Visit Provider Radiology Radiation Oncology
DX: C34.32 Malignant neoplasm of lower lobe, left bronchus or lung (principal); Z92.3 Personal history of irradiation
CPT/HCPCS: 71260; 99024

== ENCOUNTER → 2024-12-29 08:26 | Outpatient (BNVA) | payer MEDICARE, OTHER, SELFPAY | PROVIDERS: PCP Family Medicine; Visit Provider Nurse Practitioner | DX: M19.012 Primary osteoarthritis, left shoulder (principal); Z71.89 Other specified counseling | CPT/HCPCS: 20610; J1100; J2795; J3301; J9999 ==

== ENCOUNTER → 2025-04-06 11:44 | Outpatient (BNVA) | payer MEDICARE, OTHER, SELFPAY | PROVIDERS: PCP Family Medicine; Visit Provider Nurse Practitioner | DX: M19.012 Primary osteoarthritis, left shoulder (principal); Z71.89 Other specified counseling | CPT/HCPCS: 20610; J1100; J2795; J3301; J9999 ==

== ENCOUNTER 2025-04-18 13:44 | Oncology outpatient (recurring) (ONCR) | payer MEDICARE, OTHER, SELFPAY ==
--- NOTE | 2025-04-13 09:00 | PETR_ITS ---
PROCEDURE INFORMATION: Exam: PET/CT Skull Base to Mid-thigh Exam date and time: 04/13/2025 10:34 AM Age: 79 years old Clinical indication: Condition or disease; Primary cancer: Lung cancer LABS AND CLINICAL REPORTS: Glucose: 124 mg/dl Treatment strategy for malignancy (PET staging): Initial Staging (PI) TECHNIQUE: Imaging protocol: Following at least four-hour fasting and following the injection of radiopharmaceutical, low dose CT images were obtained. Then, PET images were obtained. Attenuation corrected images were constructed using the CT scan. Fused images of PET and CT were reviewed. The standardized uptake values (SUV) reported below are maximum values within a region of interest, expressed in gm/ml. Exam includes orbital meatal line to mid-thigh. SUV normalization method: BodyWeight Radiopharmaceutical: 9.29 mCi F-18 FDG (Fluorodeoxyglucose), IV. Time of imaging post radiopharmaceutical administration: 49 minutes Injection site: left hand COMPARISON: PT PET Scan 05/31/2024 12:20 PM FINDINGS: Brain: Visualized brain has normal physiologic uptake. Pharynx: No abnormal uptake. Larynx: No abnormal uptake. Lungs, pleura and trachea: Similar scarring in the lung bases at the site of prior malignancy with minimal residual tracer uptake less than blood pool (SUV max 1.8). No new nodules. Heart: Normal physiologic uptake. Mediastinal space: No abnormal uptake. Liver: No abnormal uptake. Gallbladder and biliary ducts: No abnormal uptake. Pancreas: No abnormal uptake. Spleen: No abnormal uptake. Adrenal glands: No abnormal uptake. Kidneys and ureters: Normal physiologic uptake. Stomach and bowel: No abnormal uptake. Vasculature: No abnormal uptake. Lymph nodes: Tiny left axillary lymph node with mild avidity less than blood pool, likely reactive. Skeleton: No abnormal uptake in the visualized axial and appendicular skeleton. Soft tissues: No abnormal uptake in the visualized head, neck, chest, abdomen, pelvis, and extremities. METRICS: Mediastinal blood pool: SUV max = 2.5 Liver uptake: SUV max = 3.3 PET/PET skull to thigh SUBS [id number] IMPRESSION: Similar posttreatment changes in the lung bases at the site of prior malignancy. No evidence of residual or recurrent FDG avid disease.
--- NOTE | 2025-04-18 14:31 | ONCRAD EPV_ITS ---
Radiation Oncology Established Patient Visit Patient: Maddy Trevino [id number] : 6Age: 79 Sex: Female Dictated by: Oleg Briceño Date of Service: 04/18/2025 Referring Physician(s) : Dr. Waqar Vo Diagnosis: C34.32 - Malignant neoplasm of lower lobe, left bronchus or lung, Diagnosed 07/17/2024 (Active) Radiotherapy to Date: Course: LLL lung, Treatment Site: [id number], Ref. ID: [id number], Energy: 6X, Dose/Fx (cGy): 1,200, #Fx: 4 / 4, Dose Correction (cGy): 0, Total Dose Delivered (cGy): 4,800, Start Date: 07/27/2024, End Date: 08/03/2024, Elapsed Days: 7, Current History: Current Medications: alprazolam (Xanax) 0.5 mg PO DAILY carvedilol 6.25 mg PO BID doxycycline hyclate 100 mg PO BID 7 days hydrocodone-acetaminophen 5-325 mg 1 - 2 tabs PO .Q4-6H lansoprazole (Prevacid) 30 mg PO DAILY losartan TAKE 1 TABLET BY MOUTH ONCE DAILY FOR HIGH BLOOD PRESSURE methocarbamol 750 mg PO TID montelukast 10 mg PO DAILY mupirocin 2% 1 applic topical BID 2 weeks pregabalin (Lyrica) 50 mg PO TID release (Prevacid) Allergies: vigabatrin (From Sabril), latex, penicillins, sulfa Current Complaints / Review of Systems: . 8-month follow-up after SBRT LLL. Patient without supplemental O2 and no shortness of breath comes us today to review recent PET/CT scan results. PET/CT on 04/13/2025 notes minimal radiotracer uptake less than blood pool. She has posttreatment changes in the lung bases at the site of the prior malignancy. No evidence of residual or recurrent disease. Patient had an extremely painful and horrible experience with the older male operator technician. He was very rude and had testicular multiple times to get access and she and she has good vein access. Patient states that the patient after her had similar issue with vein access. Vital Signs: Performed on 04/18/2025 2:07 PM BMI - 24.1 kg/m2 (high), Height - 60 in, Weight - 123.4 lbs, Temperature - 97.2 f, Pulse - 88 /min, Respiration - 18 /min, O2 Sat - 90 % (low), Pain - 0, Fatigue - 0 and BP - 183/ 115 mm(hg)(high). Physical Exam: General: Alert and oriented x 3. No acute distress. HEENT: Normocephalic, atraumatic. Extraocular Movements Intact: Pupils Equal, Round, Reactive to Light and Accommodation: Sclerae anicteric. Oral cavity is clear without lesions, masses or ulcers. NECK: Supple without supraclavicular or jugular lymphadenopathy. LUNGS: Clear to auscultation bilaterally without rales, rhonchi or wheeze. HEART: Regular rate and rhythm, normal S1 and S2 without murmur, gallop or rub. MUSCULOSKELETAL: No tenderness or percussion pain over the axial skeleton, scapulae or pelvis. ABDOMEN: Soft, nontender, nondistended without masses or organomegaly. Bowell sounds are present. EXTREMITIES: No peripheral edema is identified. Limited motor and sensory examination are grossly intact and symmetric bilaterally. Multiple bruising sites from PET/CT IV access attempts. Purple vascular insufficiency of the lower extremities noted. NEUROLOGIC: Cranial nerves II ???XII are grossly intact. Normal sensation, strength 5/5 in all extremities, normal gait, no ataxia. Performance Status: KPS 80 Lab: None pending. Pathology: Primary, c34.32 - malignant neoplasm of lower lobe, left bronchus or lung, Diagnosed 07/17/2024 (active) . Imaging: See HPI Impression: GARY carcinoma s/p SBRT in July of this year. PLAN: RTC in 6 months or sooner if need be. PET/CT prior to follow-up. Signed by: 04/18/2025 2:29:42 PM <<Signature on File>> Time spent with patient/brother: 15 minutes CPT Code: CPT Code:
== END 2025-04-24 23:59 | disposition home or self-care (01) ==
PROVIDERS: PCP Family Medicine; Visit Provider Radiology Radiation Oncology
DX: C34.32 Malignant neoplasm of lower lobe, left bronchus or lung (principal)
CPT/HCPCS: 78815; 99213; A9552

== ENCOUNTER → 2025-06-11 14:51 | Outpatient (BNVA) | payer MEDICARE, OTHER, SELFPAY | PROVIDERS: PCP Family Medicine; Visit Provider Specialist | DX: M17.12 Unilateral primary osteoarthritis, left knee (principal) | CPT/HCPCS: 20610; 73560; 73565; 99214; J1100; J2795; J3301; J9999 ==

== ENCOUNTER → 2025-07-06 10:45 | Outpatient (BNVA) | payer MEDICARE, OTHER, SELFPAY | PROVIDERS: PCP Family Medicine; Visit Provider Nurse Practitioner | DX: M19.012 Primary osteoarthritis, left shoulder (principal); Z71.89 Other specified counseling | CPT/HCPCS: 20610; J1100; J2795; J3301; J9999 ==